=== PATIENT | male | born 1970 | race Caucasian/White ===

== ENCOUNTER 2019-03-02 04:50 | Inpatient (IN) ==
[2019-03-02] MEDS ORDERED: METOCLOPRAMIDE HCL INJ 5 MG/ML 2 ML VIAL IV STA (04:56)
[2019-03-02] MEDS ORDERED: KETOROLAC TROMETHAMINE 15 MG/ML VIAL IV STA (04:56)
[2019-03-02] MEDS ORDERED: SODIUM CHLORIDE 0.9% 500 ML IV STA (04:56)
[2019-03-02] MEDS ORDERED: DiphenhydrAMINE HCL 50 MG/ML VIAL IV STA (04:56)
[2019-03-02] MEDS ORDERED: SODIUM CHLORIDE 0.9% 1000ML 1,000 ML IV ONE (04:56)
[2019-03-02] MEDS ORDERED: ONDANSETRON INJ 2 MG/ML 2 ML VIAL IV STA (04:56)
--- NOTE | 2019-03-02 05:04 | Emergency Department Note ---
History of Present Illness General Chief complaint: Kidney Stone Stated complaint: KIDNEY STONE History of Present Illness Maximum Pain Intensity: 10 This 49-year-old presents to the ER complaining of sudden onset of left flank pain Location: Left flank Quality: Aching Severity: Moderate Duration: Started 1 hour ago Timing: Woke him from sleep Context: Pain persisted and patient came in Modifying factors: better with nothing; worse with nothing He is had a kidney stone before. Symptoms were similar. He states he does not have a kidney stone doctor. Patient denies chest pain, dyspnea, fevers, testicular pain, penile pain or any other medical complaints. No injury to the area. Home Medications Home Medications Medication Instructions Recorded Confirmed Type aspirin 81 mg PO DAILY 03/02/19 03/02/19 History ciclopirox 1 applic TOPICAL HS 03/02/19 03/02/19 History gemfibrozil 600 mg PO BID 03/02/19 03/02/19 History hydrocodone-acetaminophen 1 tab PO BID PRN 03/02/19 03/02/19 History lorazepam [Ativan] 1 mg PO DIRECTED PRN 03/02/19 03/02/19 History niacin 100 mg PO DAILY 03/02/19 03/02/19 History gcfeq-0d-zkw-epa-fish oil [[place]-3 1,000 mg PO BID 03/02/19 03/02/19 History Fish Oil] pantoprazole 40 mg PO DAILY 03/02/19 03/02/19 History sulindac 150 mg PO BID 03/02/19 03/02/19 History terbinafine HCl 1 spray TOPICAL DAILY 03/02/19 03/02/19 History Allergies Allergy/AdvReac Type Severity Reaction Status Date / Time No Known Allergies Allergy Mild NONE Unverified 03/02/19 05:20 Past Med/Surg History Medical History High cholesterol (Chronic) Surgical History Hx of cholecystectomy (Resolved) Social History Feels Safe at Home: Yes Smoking Status: Never smoker Review of Systems All systems reviewed & are unremarkable except as noted in HPI & below Physical Exam Vital Signs Vital Signs - 24 hr 03/02/19 04:52 Temperature 36.4 C L Temperature Source Oral Sepsis Recent Fever Within 48 Hours No Sepsis Action Taken by Nursing No Action Required Pulse Rate 57 L Respiratory Rate 18 Respiratory Effort / Characteristics Non-Labored Respiratory Depth Normal Respiratory Pattern Regular Blood Pressure 180/105 H Blood Pressure Mean 130 Pulse Oximetry 95 Oxygen Delivery Method Room Air VITALS: Vitals are noted on the nurse's note and reviewed by myself. Vital signs stable. GENERAL: White male who appears in pain, in no acute distress, nondiaphoretic, well-developed well-nourished. SKIN: Capillary reflex less than 2 seconds. HEENT: Normocephalic. PERRLA. EOMI. Nares patent. Mucous membranes moist. Neck is supple without nuchal rigidity. HEART: Regular rate and rhythm without murmurs gallops or rubs. LUNGS: Clear to auscultation bilaterally without wheezes, rales or rhonchi. No retractions or accessory muscle use. ABDOMEN: Positive bowel sounds x 4. Normal tympanic percussion. Soft, nontender, without masses or organomegaly. Mccall sign negative. No guarding or rebound tenderness. No CVA tenderness MUSCULOSKELETAL: No gross musculoskeletal defects. NEURO: Patient was alert and oriented to person place and time. Normal sensation to light and sharp touch. No focal neurological deficits. Course Administered Medications Discontinued Medications Diphenhydramine HCl (Benadryl) 25 mg IV NOW STA Stop: 03/02/19 04:57 Last Admin: 03/02/19 05:05 Dose: 25 mg Documented by: [id number] Sodium Chloride (Nss 1000ml) 1,000 mls @ 999 mls/hr IV .Q1H1M ONE Stop: 03/02/19 05:56 Last Admin: 03/02/19 05:08 Dose: 999 mls/hr Documented by: [id number] Sodium Chloride (Nss) 500 mls @ 999 mls/hr IV .Q31M STA Stop: 03/02/19 05:26 Last Admin: 03/02/19 05:12 Dose: Not Given Documented by: [id number] Ketorolac Tromethamine (Toradol) 10 mg IV NOW STA Stop: 03/02/19 04:57 Last Admin: 03/02/19 05:05 Dose: 10 mg Documented by: [id number] Metoclopramide HCl (Reglan) 10 mg IV NOW STA Stop: 03/02/19 04:57 Last Admin: 03/02/19 05:07 Dose: 10 mg Documented by: [id number] Morphine Sulfate (Morphine Sulfate) 8 mg IV NOW STA Stop: 03/02/19 05:13 Last Admin: 03/02/19 05:17 Dose: Not Given Documented by: [id number] Morphine Sulfate (Morphine Sulfate) Confirm Administered Dose 8 mg .ROUTE .STK- MED ONE Stop: 03/02/19 05:15 Last Admin: 03/02/19 05:16 Dose: 8 mg Documented by: [id number] Ondansetron HCl (Zofran) 4 mg IV NOW STA Stop: 03/02/19 04:57 Last Admin: 03/02/19 05:10 Dose: Not Given Documented by: [id number] Medical Decision Making Medical Records Attestation: I reviewed the patient's medical records. Home Medications Current Medication List: was personally reviewed by me Laboratory Data Attestation: I reviewed the patient's lab results. Result diagrams: 03/02/19 05:02 03/02/19 05:02 Lab Results 03/02/19 03/02/19 03/02/19 Range/Units 05:02 05:02 05:40 WBC 5.25 (4.8-10.8) K/uL RBC 4.63 L (4.7-6.1) M/uL Hgb 14.1 (14.0-18.0) g/dL Hct 39.0 L (42-52) % MCV 84.2 (80-100) fL MCH 30.5 (25-34) pg MCHC 36.2 H (32-36) g/dL RDW Std Deviation 37.6 (36.4-46.3) fL RDW Coeff of Osmin 12.3 (11.5-14.5) % Plt Count 217 (130-400) K/uL MPV 9.2 (7.4-10.4) fL Sodium 137 (136-145) mmol/L Potassium 3.8 (3.5-5.1) mmol/L Chloride 107 (98-107) mmol/L Carbon Dioxide 23 (21-32) mmol/L Anion Gap 7.0 (3-11) BUN 20 H (7-18) mg/dl Creatinine 0.99 (0.6-1.4) mg/dl Est Cr Clr Drug Dosing 129.7 ml/min Est GFR ( Amer) 104.7 Est GFR (Non-Af Amer) 90.3 BUN/Creatinine Ratio 20.2 H (10-20) Glucose 163 H (70-99) mg/dl Calcium 8.7 (8.5-10.1) mg/dl Total Bilirubin 0.4 (0.2-1) mg/dl AST 54 H (15-37) U/L ALT 98 H (12-78) U/L Alkaline Phosphatase 58 (45-117) U/L Total Protein 7.1 (6.4-8.2) gm/dl Albumin 3.6 (3.4-5.0) gm/dl Globulin 3.5 (2.5-4.0) gm/dl Albumin/Globulin Ratio 1.0 (0.9-2) Urine Color Urine Appearance (Clear) Urine pH (4.5-7.5) POC Urine pH 7 (4.5-7.5) Ur Specific [place] (1.000-1.030) Urine Protein (Negative) POC Urine Protein Trace H (Negative) Urine Glucose (UA) (Negative) POC Ur Glucose (UA) 250 H (Normal) Urine Ketones (Negative) POC Urine Ketones Negative (Negative) Urine Blood (Negative) POC Urine Blood 50 H (Negative) Urine Nitrite (Negative) POC Urine Nitrite Negative (Negative) Urine Bilirubin (Negative) Urine Urobilinogen (Negative) Ur Leukocyte Esterase (Negative) POC U Leukocyte Esteras Negative (Negative) Urine WBC (Auto) (0-5) /hpf Urine RBC (Auto) (0-4) /hpf U Hyaline Cast (Auto) (0-5) /lpf U Epithel Cells (Auto) (0-5) /lpf Urine Bacteria (Auto) (Negative) 03/02/19 Range/Units 05:40 WBC (4.8-10.8) K/uL RBC (4.7-6.1) M/uL Hgb (14.0-18.0) g/dL Hct (42-52) % MCV (80-100) fL MCH (25-34) pg MCHC (32-36) g/dL RDW Std Deviation (36.4-46.3) fL RDW Coeff of Osmin (11.5-14.5) % Plt Count (130-400) K/uL MPV (7.4-10.4) fL Sodium (136-145) mmol/L Potassium (3.5-5.1) mmol/L Chloride (98-107) mmol/L Carbon Dioxide (21-32) mmol/L Anion Gap (3-11) BUN (7-18) mg/dl Creatinine (0.6-1.4) mg/dl Est Cr Clr Drug Dosing ml/min Est GFR ( Amer) Est GFR (Non-Af Amer) BUN/Creatinine Ratio (10-20) Glucose (70-99) mg/dl Calcium (8.5-10.1) mg/dl Total Bilirubin (0.2-1) mg/dl AST (15-37) U/L ALT (12-78) U/L Alkaline Phosphatase (45-117) U/L Total Protein (6.4-8.2) gm/dl Albumin (3.4-5.0) gm/dl Globulin (2.5-4.0) gm/dl Albumin/Globulin Ratio (0.9-2) Urine Color Yellow Urine Appearance Clear (Clear) Urine pH 6.5 (4.5-7.5) POC Urine pH (4.5-7.5) Ur Specific [place] 1.021 (1.000-1.030) Urine Protein Negative (Negative) POC Urine Protein (Negative) Urine Glucose (UA) 1+ H (Negative) POC Ur Glucose (UA) (Normal) Urine Ketones Negative (Negative) POC Urine Ketones (Negative) Urine Blood 3+ H (Negative) POC Urine Blood (Negative) Urine Nitrite Negative (Negative) POC Urine Nitrite (Negative) Urine Bilirubin Negative (Negative) Urine Urobilinogen Negative (Negative) Ur Leukocyte Esterase Negative (Negative) POC U Leukocyte Esteras (Negative) Urine WBC (Auto) 1-5 (0-5) /hpf Urine RBC (Auto) 10-30 H (0-4) /hpf U Hyaline Cast (Auto) 1-5 (0-5) /lpf U Epithel Cells (Auto) 10-20 H (0-5) /lpf Urine Bacteria (Auto) Negative (Negative) Imaging Data Attestation: I personally reviewed and interpreted this imaging study as follows: MDM Narrative Prior records/ancillary studies reviewed. Triage Nursing notes reviewed. Additional history obtained from the family. The patient's history was concerning for left flank pain. Differential diagnosis: Etiologies such as renal colic, appendicitis, diverticulitis, mesenteric ischemia, aortic pathology, infections, inflammatory bowel disease, PUD, biliary pathology, UTI, as well as others were entertained. Physical examination findings: As above. ER treatment provided: Toradol, Reglan, Benadryl, IV fluids On reassessment the patient felt better. Diagnostic interpretation by me: The labs revealed hyperglycemia without DKA. Mild LFT elevation. Patient has known high cholesterol. Urinalysis revealed hematuria, there was no sign of UTI. Imaging studies: CT ABDOMEN & PELVIS Without Contrast: Comparison: CT dated 12/30/2009. Left proximal ureteral 3 x 3 x 4 mm calculus with mild left hydronephrosis and small periureteral/perinephric fluid. Periureteral/perinephric fluid is probably related to calculus although recommend clinical correlation and correlation with urinalysis to exclude superimposed infection. Additional punctate nonobstructive left renal calculus. Status post cholecystectomy. Incidental findings: Fatty infiltration of the liver. Normal appendix. Small fat-containing left inguinal hernia. Radiologist: Pat Keys MD Consultation: A consultation was placed with Dr. Harris, hospitalist. The case was discussed and diagnostics were reviewed. The patient was evaluated in the ER for further treatment. It appears that the patient has isolated renal colic from a left sided stone. Patient was still in moderate amount of pain. Medicine was consulted. Patient is agreeable to treatment plan. By the evaluation outlined above emergent etiologies such as appendicitis, diverticulitis, mesenteric ischemia, aortic pathology, infections, inflammatory bowel disease, PUD, biliary pathology, UTI, as well as others were deemed relatively unlikely. The pt informed about the findings as listed above. All questions were answered and pleased with the treatment. The chart was completed utilizing [employer] Speech voice recognition software. Grammatical errors, random word insertions, pronoun errors, and incomplete sentences are an occassional consequence of this system due to software limitations, ambient noise, and hardware issues. Any formal questions or concerns about the content, text, or information contained within the body of this dictation should be directly addressed to the physician public health assistant for clarification. Impression & Plan Renal colic on left side, Ureterolithiasis, Intractable back pain Discharge Plan Visit Data Chief Complaint: Kidney Stone Stated Complaint: KIDNEY STONE ED Provider: Agatha Tracy ED Midlevel Provider: Luz Maria Caceres Discharge Problem: Renal colic on left side, Ureterolithiasis, Intractable back pain Patient Disposition: Being Evaluated by Hospitalist Condition: Good Forms Stand Alone Forms: My [facility] Prescriptions Prescriptions: No Action hydrocodone-acetaminophen 5-325 mg Tablet 1 tab PO BID PRN (Reason: mild pain) RF: 0 sulindac 150 mg Tablet 150 mg PO BID RF: 0 lorazepam [Ativan] 1 mg Tablet 1 mg PO DIRECTED PRN (Reason: Anxiety) RF: 0 gemfibrozil 600 mg Tablet 600 mg PO BID RF: 0 pantoprazole 40 mg Tablet,Delayed Release (Dr/Ec) 40 mg PO DAILY RF: 0 ciclopirox 8 % Solution 1 applic TOPICAL HS RF: 0 terbinafine HCl 1 % Aerosol,[place] 1 spray TOPICAL DAILY RF: 0 [place]-3 Fish Oil 300-1,000 mg Capsule 1,000 mg PO BID RF: 0 niacin 100 mg Tablet 100 mg PO DAILY RF: 0 aspirin 81 mg Tablet,Delayed Release (Dr/Ec) 81 mg PO DAILY RF: 0 Referrals Referrals: Debbie Perez DO [Primary Care Provider] -
[2019-03-02] MEDS ORDERED: MoRPHine SULFATE 10 MG/ML CARP/VIAL IV STA (05:12)
[2019-03-02] MEDS ORDERED: MoRPHine SULFATE 4 MG/ML 1 ML CARP\\VIAL ONE (05:14)
[2019-03-02 05:16] LABS: Hemoglobin 14.1 g/dL (14.0-18.0); Mean Corpuscular Hgb Conc 36.2 g/dL (32-36); Mean Corpuscular Volume 84.2 fL (80-100); Mean Platelet Volume 9.2 fL (7.4-10.4); Platelet Count 217 K/uL (130-400); RDW Coefficient of Variation 12.3 % (11.5-14.5); RDW Standard Deviation 37.6 fL (36.4-46.3); Red Blood Count 4.63 M/uL (4.7-6.1); White Blood Count 5.25 K/uL (4.8-10.8)
[2019-03-02 05:35] LABS: Albumin Level 3.6 gm/dl (3.4-5.0); BUN Creatinine Ratio 20.2 (10-20); Calcium 8.7 mg/dl (8.5-10.1); Creatinine Clr Calc Pharmacy 129.7 ml/min; Est GFR (African American) 104.7; Est GFR (Non-African American) 90.3; Potassium 3.8 mmol/L (3.5-5.1)
[2019-03-02 05:37] LABS: Bilirubin,Total 0.4 mg/dl (0.2-1); Globulin 3.5 gm/dl (2.5-4.0); Total Protein 7.1 gm/dl (6.4-8.2)
[2019-03-02 06:08] LABS: Appearance Urine Clear (Clear); Bacteria Urine Automated Negative (Negative); Bilirubin Urine Negative (Negative); Blood Urine 3+ (Negative); Color Urine Yellow; Glucose Urine UA 1+ (Negative); Ketones Urine Negative (Negative); Leukocyte Esterase Urine Negative (Negative); Nitrite Urine Negative (Negative); Protein Urine Negative (Negative); Specific Gravity Urine 1.021 (1.000-1.030); Urobilinogen Urine Negative (Negative); pH Urine 6.5 (4.5-7.5)
[2019-03-02] MEDS ORDERED: TAMSULOSIN HCL 0.4 MG CAP PO ONE (06:08)
[2019-03-02 06:40] LABS: Magnesium 1.9 mg/dl (1.8-2.4)
--- NOTE | 2019-03-02 06:40 | History & Physical Report ---
Date of Service March 02, 2019 Assessment & Plan (1) Renal colic on left side: Obstructive uropathy No sepsis for now situational hypertension hyperlipidemia on statin Rx history of posttraumatic seizures, stable, last seizure was from childhood JOHNNIE on CPAP Abnormal LFTs likely from fatty liver disease prediabetes past tobacco abuse GMF Analgesia Flomax trial Strain urine Urology consult RE obstructive uropathy, left DVT prophylaxis. Lovenox subcu Full code Patient's requesting updates from providers. Mrs. Anni Vaughn, contact #[phone]. History of Present Illness Chief Complaint: Left flank pain Primary Care Provider: Heather Calvillo DO History obtained from patient, family, and records. Medical history significant for situational hypertension as per records, hyperlipidemia, urolithiasis, GERD, history of posttraumatic seizures, JOHNNIE on CPAP, prediabetes, past tobacco abuse. Recent confinement September 2013 for chest pain. Patient woke up this morning with achy left flank pain reminiscent of kidney stone pain. Patient had nausea, emesis. No hematuria, no fever, no chills. Intractable symptoms at the ER. Medical History as above Surgical History : Cholecystectomy, knee surgery Family History : Heart disease Personal/Social history : Past tobacco abuse, occasional EtOH intake, [employer] employee Allergies Allergy/AdvReac Type Severity Reaction Status Date / Time No Known Allergies Allergy Mild NONE Unverified 03/02/19 05:20 Home Medications Home Medications Medication Instructions Recorded Confirmed Type aspirin 81 mg PO DAILY 03/02/19 03/02/19 History ciclopirox 1 applic TOPICAL HS 03/02/19 03/02/19 History gemfibrozil 600 mg PO BID 03/02/19 03/02/19 History hydrocodone-acetaminophen 1 tab PO BID PRN 03/02/19 03/02/19 History lorazepam [Ativan] 1 mg PO DIRECTED PRN 03/02/19 03/02/19 History niacin 100 mg PO DAILY 03/02/19 03/02/19 History ctimm-1i-nrp-epa-fish oil [[place]-3 1,000 mg PO BID 03/02/19 03/02/19 History Fish Oil] pantoprazole 40 mg PO DAILY 03/02/19 03/02/19 History sulindac 150 mg PO BID 03/02/19 03/02/19 History terbinafine HCl 1 spray TOPICAL DAILY 03/02/19 03/02/19 History Past Med/Surg History Medical History High cholesterol (Chronic) Surgical History Hx of cholecystectomy (Resolved) Social History Feels Safe at Home: Yes Smoking Status: Never smoker Review of Systems Review of Systems: As per HPI, all 10 systems reviewed, all other ROS negative Physical Exam Physical Exam: GENERAL: uncomfortable, obese, no respiratory distress SKIN: Normal color, warm HEENT: [place] palpebral conjunctivae, no ptosis, dry buccal mucosa NECK : Supple, short neck, no tenderness CHEST : CTA, no tenderness HEART : Bradycardic , no obvious murmurs ABDOMEN: Some distention, left flank tenderness EXTREMITIES : minimal LE swelling, no LE tenderness, no other conspicuous deformities noted NEUROLOGIC : Coherent, no facial asymmetry, no other gross focality Results & Data Vital Signs (Past 12 Hours) Vital Signs Temp Pulse Pulse Resp BP BP Pulse Ox 03/02/19 06:36 56 L 17 148/89 H 97 03/02/19 04:52 36.4 C L 57 L 18 180/105 H 95 Laboratory Results Laboratory Results WBC 5.25 K/uL (4.8-10.8) 03/02/19 05:02 RBC 4.63 M/uL (4.7-6.1) L 03/02/19 05:02 Hgb 14.1 g/dL (14.0-18.0) 03/02/19 05:02 Hct 39.0 % (42-52) L 03/02/19 05:02 MCV 84.2 fL (80-100) 03/02/19 05:02 MCH 30.5 pg (25-34) 03/02/19 05:02 MCHC 36.2 g/dL (32-36) H 03/02/19 05:02 RDW Std Deviation 37.6 fL (36.4-46.3) 03/02/19 05:02 RDW Coeff of Osmin 12.3 % (11.5-14.5) 03/02/19 05:02 Plt Count 217 K/uL (130-400) 03/02/19 05:02 MPV 9.2 fL (7.4-10.4) 03/02/19 05:02 Sodium 137 mmol/L (136-145) 03/02/19 05:02 Potassium 3.8 mmol/L (3.5-5.1) 03/02/19 05:02 Chloride 107 mmol/L (98-107) 03/02/19 05:02 Carbon Dioxide 23 mmol/L (21-32) 03/02/19 05:02 Anion Gap 7.0 (3-11) 03/02/19 05:02 BUN 20 mg/dl (7-18) H 03/02/19 05:02 Creatinine 0.99 mg/dl (0.6-1.4) 03/02/19 05:02 Est Cr Clr Drug Dosing 129.7 ml/min 03/02/19 05:02 Est GFR ( Amer) 104.7 03/02/19 05:02 Est GFR (Non-Af Amer) 90.3 03/02/19 05:02 BUN/Creatinine Ratio 20.2 (10-20) H 03/02/19 05:02 Glucose 163 mg/dl (70-99) H 03/02/19 05:02 Calcium 8.7 mg/dl (8.5-10.1) 03/02/19 05:02 Magnesium 1.9 mg/dl (1.8-2.4) 03/02/19 05:02 Total Bilirubin 0.4 mg/dl (0.2-1) 03/02/19 05:02 AST 54 U/L (15-37) H 03/02/19 05:02 ALT 98 U/L (12-78) H 03/02/19 05:02 Alkaline Phosphatase 58 U/L (45-117) 03/02/19 05:02 Total Protein 7.1 gm/dl (6.4-8.2) 03/02/19 05:02 Albumin 3.6 gm/dl (3.4-5.0) 03/02/19 05:02 Globulin 3.5 gm/dl (2.5-4.0) 03/02/19 05:02 Albumin/Globulin Ratio 1.0 (0.9-2) 03/02/19 05:02 TSH 1.410 uIu/ml (0.300-4.500) 03/02/19 05:02 Urine Color Yellow 03/02/19 05:40 Urine Appearance Clear (Clear) 03/02/19 05:40 Urine pH 6.5 (4.5-7.5) 03/02/19 05:40 POC Urine pH 7 (4.5-7.5) 03/02/19 05:40 Ur Specific [place] 1.021 (1.000-1.030) 03/02/19 05:40 Urine Protein Negative (Negative) 03/02/19 05:40 POC Urine Protein Trace (Negative) H 03/02/19 05:40 Urine Glucose (UA) 1+ (Negative) H 03/02/19 05:40 POC Ur Glucose (UA) 250 (Normal) H 03/02/19 05:40 Urine Ketones Negative (Negative) 03/02/19 05:40 POC Urine Ketones Negative (Negative) 03/02/19 05:40 Urine Blood 3+ (Negative) H 03/02/19 05:40 POC Urine Blood 50 (Negative) H 03/02/19 05:40 Urine Nitrite Negative (Negative) 03/02/19 05:40 POC Urine Nitrite Negative (Negative) 03/02/19 05:40 Urine Bilirubin Negative (Negative) 03/02/19 05:40 Urine Urobilinogen Negative (Negative) 03/02/19 05:40 Ur Leukocyte Esterase Negative (Negative) 03/02/19 05:40 POC U Leukocyte Esteras Negative (Negative) 03/02/19 05:40 Urine WBC (Auto) 1-5 /hpf (0-5) 03/02/19 05:40 Urine RBC (Auto) 10-30 /hpf (0-4) H 03/02/19 05:40 U Hyaline Cast (Auto) 1-5 /lpf (0-5) 03/02/19 05:40 U Epithel Cells (Auto) 10-20 /lpf (0-5) H 03/02/19 05:40 Urine Bacteria (Auto) Negative (Negative) 03/02/19 05:[address] abdomen pelvis initial read: Left proximal ureteral 3 x 4 mm calculus with mild left hydronephrosis and small periureteral, perinephric fluid. Additional punctate nonobstructive left renal calculus. Fatty infiltration of the liver. Left inguinal hernia. EKG as per my interpretation rate 55, sinus bradycardia, T wave flattening lateral leads
--- NOTE | 2019-03-02 06:42 | CT Scan Report ---
CT abd pelvis wo con CT DOSE: 1825.65 mGy.cm HISTORY: Flank pain left flank pain TECHNIQUE: Multiaxial CT images of the abdomen and pelvis were performed without contrast. A dose lo wering technique was utilized adhering to the principles of ALARA. COMPARISON STUDY: 03/01/2016 FINDINGS: Nonspecific interstitial change at both lung bases. Liver spleen and pancreas are unremarkable. Prior cholecystectomy. Mild left renal hydronephrosis with a trace amount of perinephric infiltrative change. Obstructing 3 mm proximal left ureteral calculus. Ureters are otherwise unremarkable throughout. Bladder is midline. The bowel pattern is nonobstructiv e. Several small reactive iliac nodes. IMPRESSION: 1. Obstructing 3 mm calculus proximal left ureter. 2. Mild left hydronephrosis. 3. Mild left perinephric infiltrative change. The above report was generated using voice recognition software. It may contain grammatical, syntax or spelling errors. Electronically signed by: Andrea Ulloa M.D. 03/02/2019 6:41 AM
[2019-03-02] MEDS ORDERED: PROMETHAZINE HCL 12.5 MG in SODIUM CHLORIDE 0.9% 50 ML IV PRN (06:45)
[2019-03-02] MEDS ORDERED: LORazepam 0.5 MG/1 ML VIAL IV PRN (06:45)
[2019-03-02] MEDS ORDERED: HYDROmorphone INJ 1 MG/ML SYRINGE IV PRN (06:45)
[2019-03-02] MEDS ORDERED: ACETAMINOPHEN 325 MG TAB PO PRN (06:45)
[2019-03-02 07:00] LABS: Estimated Average Glucose 117 mg/dl; Hemoglobin A1C 5.7 % (4.5-5.6)
[2019-03-02] MEDS ORDERED: TAMSULOSIN HCL 0.4 MG CAP ONE (07:02)
[2019-03-02] MEDS ORDERED: HYDROCODONE/ACETAMOPHEN 5/325MG TAB PO PRN (07:27)
[2019-03-02] MEDS ORDERED: NSS + 20MEQ KCL 20 MEQ/1,000 ML BAG IV ONE (08:00)
[2019-03-02 08:15] LABS: Prothrombin Time 10.6 Seconds (9.0-12.0)
[2019-03-02] MEDS: PANTOprazole 40 MG TAB PO SCH (08:38)
--- NOTE | 2019-03-02 09:56 | Urology Consultation ---
Date of Consultation March 02, 2019 Assessment & Plan (1) Renal colic on left side: patient has a skinny anterior posterior but long (9mm) stone in the upper ureter. his pain is much lower now so I suspect the stone has moved down to the mid ureter now. I offered him stone removal surgery today and he prefers to wait and try to pass stone he may eat a general diet today and make him NPO after midnight for possible procedure tomorrow. FLomax daily Present on Admission?: Yes History of Present Illness Reason for Consultation: left ureteral stone Requesting Physician: Dr Rosas Attending Physician: Stuart Morley MD History of Present Illness I am asked by Dr Rosas to evaluate and treat patient for left renla colic. He started with kidney pain at 3am. He has had progress of the stone to the left lower quadrant. he has had nausea and emesis from the pain. he feels fine now. He has passed other stones and has never needed surgery for stones. No fevers lately Allergies Allergy/AdvReac Type Severity Reaction Status Date / Time No Known Allergies Allergy Mild NONE Unverified 03/02/19 05:20 Home Medications Home Medications Medication Instructions Recorded Confirmed Type aspirin 81 mg PO DAILY 03/02/19 03/02/19 History ciclopirox 1 applic TOPICAL HS 03/02/19 03/02/19 History gemfibrozil 600 mg PO BID 03/02/19 03/02/19 History hydrocodone-acetaminophen 1 tab PO BID PRN 03/02/19 03/02/19 History lorazepam [Ativan] 1 mg PO DIRECTED PRN 03/02/19 03/02/19 History niacin 100 mg PO DAILY 03/02/19 03/02/19 History xziek-6g-yky-epa-fish oil [[place]-3 1,000 mg PO BID 03/02/19 03/02/19 History Fish Oil] pantoprazole 40 mg PO DAILY 03/02/19 03/02/19 History sulindac 150 mg PO BID 03/02/19 03/02/19 History terbinafine HCl 1 spray TOPICAL DAILY 03/02/19 03/02/19 History Patient History Medical History High cholesterol (Chronic) Surgical History Hx of cholecystectomy (Resolved) Social History Preferred Language: [place] Communication Ability: Effective Account Resolution Analyst Required: No Beliefs That Will Affect Care: None Current Living Situation: Spouse and Family Other Information That Helps Us Care for You: No Feels Safe at Home: Yes Safety Concerns: Feels Safe At This Time Smoking Status: Never smoker Do You Dip or Chew Tobacco: No Second Hand Exposure: No Tobacco Cessation Education Requested by Patient: No Hx Alcohol Use: Yes Alcohol type: other Hx Substance Use: No Review of Systems Review of Systems: PMH- HTN Seizures remotely, none for years, fatty liver PSH- gallbladder NKDA Soc- no tobacco no etoh, + children, employed Fam Hx- no cancer no mi no stones in first degreee relatives ROS- no fever no chills, + nause + emesis - constipation- seizures- rash- - weakness or numbness, no chest pain or breathing problems, Physical Exam Constitutional: well developed, + obese and + lethargic was sleeping when I arrived, fell asleep during the interview. Eyes: PERRL, conjunctivae normal, anicteric sclerae Respiratory: normal respiratory effort, lungs clear to auscultation Gastrointestinal (Abdomen): normal bowel sounds, soft, nontender, no hepatosplenomegaly Musculoskeletal: no cyanosis or clubbing, extremities motor strength 5/5 Skin: no rashes, warm and dry Psychiatric: Orientation: oriented to person, oriented to place and oriented to time Apperance: + disheveled and appeared stated age Eye Contact: + fair eye contact Speech: normal rate/rhythm/volume of speech Results & Data Vital Signs (Past 12 Hours) Vital Signs Temp Pulse Pulse Resp BP BP Pulse Ox 03/02/19 07:20 36.5 C 61 16 176/95 H 96 03/02/19 07:06 57 L 18 156/87 H 97 03/02/19 06:36 56 L 17 148/89 H 97 03/02/19 04:52 36.4 C L 57 L 18 180/105 H 95
[2019-03-02] MEDS: ENOXAPARIN INJ 40 MG/0.4 ML SYR SQ SCH (11:05)
--- NOTE | 2019-03-02 15:35 | Hospitalist Progress Note ---
Date of Service March 02, 2019 Assessment & Plan (1) Renal colic on left side: Left Renal Colic Obstructive uropathy No sepsis Continue IV fluids, Flomax Pain Control Strain Urine Appreciate Urology Input Plan for procedure in AM if unable to pass stone Elevated Blood Pressure Likely due to pain Monitor Hyperlipidemia Continue home meds H/O Posttraumatic seizures last seizure was from childhood Stable JOHNNIE on CPAP Mild Transaminitis Unremarkable liver on CT Prior Cholecystectomy Monitor Prediabetes past tobacco abuse DVT Px: Lovenox SQ Code Status Full code Disposition: Expect to discharge home when stable Subjective Patient is seen and examined at bedside Reports mild LLQ abd pain radiating to groin Denies hematuria, chest pain, SOB, dizziness Reports nausea but no vomiting No other complaints Review of Systems Review of Systems: All systems reviewed & are unremarkable except as noted in HPI & below Physical Exam Physical Exam: Physical Exam: Vitals signs as noted above General Appearance:Obese, no apparent distress Head: normocephalic, Atraumatic Eyes: normal inspection, EOMI Neck: supple, Trachea midline Respiratory/Chest: Normal breath sounds, CTA Cardiovascular: S1, S2, No murmur Abdomen/GI:Soft, Non tender, no flank tenderness, Bowel sounds present Extremities/Musculoskelatal:normal inspection, no edema Neurologic/Psych:AAOX3, grossly no focal neurological deficits Skin: normal color, warm Results & Data Vital Signs (Past 12 Hours) Vital Signs Temp Pulse Pulse Resp BP BP Pulse Ox 03/02/19 15:23 36.6 C 72 17 138/78 95 03/02/19 07:20 36.5 C 61 16 176/95 H 96 03/02/19 07:06 57 L 18 156/87 H 97 03/02/19 06:36 56 L 17 148/89 H 97 03/02/19 04:52 36.4 C L 57 L 18 180/105 H 95 Laboratory Results Short CBC 03/02/19 Range/Units 05:02 WBC 5.25 (4.8-10.8) K/uL Hgb 14.1 (14.0-18.0) g/dL Hct 39.0 L (42-52) % Plt Count 217 (130-400) K/uL BMP 03/02/19 05:02 Sodium 137 Potassium 3.8 Chloride 107 Carbon Dioxide 23 BUN 20 H Creatinine 0.99 Glucose 163 H Calcium 8.7 Liver Function 03/02/19 Range/Units 05:02 Total Bilirubin 0.4 (0.2-1) mg/dl AST 54 H (15-37) U/L ALT 98 H (12-78) U/L Alkaline Phosphatase 58 (45-117) U/L Albumin 3.6 (3.4-5.0) gm/dl Urine 03/02/19 Range/Units 05:40 Urine Color Yellow Urine Appearance Clear (Clear) Urine pH 6.5 (4.5-7.5) Ur Specific [place] 1.021 (1.000-1.030) Urine Protein Negative (Negative) Urine Glucose (UA) 1+ H (Negative) Diagnostic Findings CT ABD: 1. Obstructing 3 mm calculus proximal left ureter. 2. Mild left hydronephrosis. 3. Mild left perinephric infiltrative change.
[2019-03-02] MEDS: GEMFIBROZIL 600 MG TAB PO SCH (16:55)
[2019-03-03 06:26] LABS: Basophils # (auto) 0.05 K/uL (0-0.2); Basophils % (auto) 0.6 %; Eosinophils # (auto) 0.21 K/uL (0-0.5); Eosinophils % (auto) 2.7 %; Hematocrit (blood only) 38.4 % (42-52); Hemoglobin 13.6 g/dL (14.0-18.0); Immature Granulocytes # (auto) 0.02 K/uL (0.00-0.02); Immature Granulocytes % (auto) 0.3 %; Lymphocytes # (auto) 2.36 K/uL (1.2-3.4); Mean Corpuscular Hgb Conc 35.4 g/dL (32-36); Mean Corpuscular Volume 85.9 fL (80-100); Mean Platelet Volume 9.4 fL (7.4-10.4); Monocytes # (auto) 0.95 K/uL (0.11-0.59); Monocytes % (auto) 12.1 %; Neutrophils # (auto) 4.27 K/uL (1.4-6.5); Neutrophils % (auto) 54.3 %; Platelet Count 221 K/uL (130-400); RDW Coefficient of Variation 12.6 % (11.5-14.5); RDW Standard Deviation 39.3 fL (36.4-46.3); Red Blood Count 4.47 M/uL (4.7-6.1); White Blood Count 7.86 K/uL (4.8-10.8)
[2019-03-03 06:53] LABS: Albumin Level 3.3 gm/dl (3.4-5.0); BUN Creatinine Ratio 18.2 (10-20); Calcium 9.2 mg/dl (8.5-10.1); Creatinine Clr Calc Pharmacy 151.1 ml/min; Est GFR (African American) 120.3; Est GFR (Non-African American) 103.8; Potassium 3.9 mmol/L (3.5-5.1)
[2019-03-03 06:56] LABS: Bilirubin,Total 0.6 mg/dl (0.2-1); Globulin 3.3 gm/dl (2.5-4.0); Total Protein 6.6 gm/dl (6.4-8.2)
[2019-03-03] MEDS: PANTOprazole 40 MG TAB PO SCH (07:58)
[2019-03-03] MEDS: ENOXAPARIN INJ 40 MG/0.4 ML SYR SQ SCH (07:58)
[2019-03-03] MEDS: GEMFIBROZIL 600 MG TAB PO SCH (07:58)
[2019-03-03] MEDS ORDERED: TAMSULOSIN HCL 0.4 MG CAP PO SCH (09:00)
--- NOTE | 2019-03-03 10:33 | Hospitalist Progress Note ---
Date of Service March 03, 2019 Assessment & Plan (1) Renal colic on left side: Left Renal Colic Obstructive uropathy No sepsis Continue IV fluids, Flomax Pain Control Strain Urine Appreciate Urology Input Denies hematuria, dysuria Abdominal pain resolved Patient currently not interested in stent placement and prefers to be managed Conservatively Plans to Follow up with on Monday as outpatient Advised to seek immediate medical attention if symptoms reoccur--agrees with plan Elevated Blood Pressure Likely due to pain Monitor Hyperlipidemia Continue home meds H/O Posttraumatic seizures last seizure was from childhood Stable JOHNNIE on CPAP Mild Transaminitis Unremarkable liver on CT Prior Cholecystectomy Monitor Prediabetes past tobacco abuse DVT Px: Lovenox SQ Code Status Full code Disposition: Plan to discharge home today Subjective Patient is seen and examined at bedside States LLQ abd pain has resolved Patient prefers to be discharged and follow up as outpatient with Urology-- aware Tolerated diet Denies hematuria, dysuria, chest pain, SOB, dizziness No nausea or vomiting Review of Systems Review of Systems: All systems reviewed & are unremarkable except as noted in HPI & below Physical Exam Physical Exam: Physical Exam: Vitals signs as noted above General Appearance:Obese, no apparent distress Head: normocephalic, Atraumatic Eyes: normal inspection, EOMI Neck: supple, Trachea midline Respiratory/Chest: Normal breath sounds, CTA Cardiovascular: S1, S2, No murmur Abdomen/GI:Soft, Non tender, no flank tenderness, Bowel sounds present Extremities/Musculoskelatal:normal inspection, no edema Neurologic/Psych:AAOX3, grossly no focal neurological deficits Skin: normal color, warm Results & Data Vital Signs (Past 12 Hours) Vital Signs Temp Pulse Resp BP Pulse Ox 03/03/19 07:10 36.8 C 69 18 149/83 H 94 03/02/19 22:55 36.9 C 61 18 153/88 H 95 Laboratory Results Short CBC 03/03/19 Range/Units 05:44 WBC 7.86 (4.8-10.8) K/uL Hgb 13.6 L (14.0-18.0) g/dL Hct 38.4 L (42-52) % Plt Count 221 (130-400) K/uL BMP 03/03/19 05:44 Sodium 140 Potassium 3.9 Chloride 109 H Carbon Dioxide 24 BUN 16 Creatinine 0.85 Glucose 119 H Calcium 9.2 Liver Function 03/03/19 Range/Units 05:44 Total Bilirubin 0.6 (0.2-1) mg/dl AST 43 H (15-37) U/L ALT 115 H (12-78) U/L Alkaline Phosphatase 54 (45-117) U/L Albumin 3.3 L (3.4-5.0) gm/dl
--- NOTE | 2019-03-03 10:40 | Discharge Summary ---
Date of Service March 03, 2019 Admission HPI Per Admitting Provider History obtained from patient, family, and records. Medical history significant for situational hypertension as per records, hyperlipidemia, urolithiasis, GERD, history of posttraumatic seizures, JOHNNIE on CPAP, prediabetes, past tobacco abuse. Recent confinement September 2013 for chest pain. Patient woke up this morning with achy left flank pain reminiscent of kidney stone pain. Patient had nausea, emesis. No hematuria, no fever, no chills. Intractable symptoms at the ER. Medical History as above Surgical History : Cholecystectomy, knee surgery Family History : Heart disease Personal/Social history : Past tobacco abuse, occasional EtOH intake, [employer] employee Admission Exam Per Admitting Provider GENERAL: uncomfortable, obese, no respiratory distress SKIN: Normal color, warm HEENT: [place] palpebral conjunctivae, no ptosis, dry buccal mucosa NECK : Supple, short neck, no tenderness CHEST : CTA, no tenderness HEART : Bradycardic , no obvious murmurs ABDOMEN: Some distention, left flank tenderness EXTREMITIES : minimal LE swelling, no LE tenderness, no other conspicuous deformities noted NEUROLOGIC : Coherent, no facial asymmetry, no other gross focality Principal Diagnosis Discharge Information Discharge Diagnosis Left Renal Colic Obstructive Uropathy Discharge Goals Decrease discomfort,Improve disease control, Improve function Discharge Activity Limitations Resume your previous activity Discharge Data Allergies Allergy/AdvReac Type Severity Reaction Status Date / Time No Known Allergies Allergy Mild NONE Unverified 03/02/19 05:20 Consultations 03/02/19 05:58 ED Decision to Admit Stat 03/02/19 06:45 Consult Urology Routine Procedures Performed CT ABD: 1. Obstructing 3 mm calculus proximal left ureter. 2. Mild left hydronephrosis. 3. Mild left perinephric infiltrative change. Ordered Studies 03/02/19 04:56 CT abd pelvis wo con Stat Hospital Course (1) Renal colic on left side: Left Renal Colic Obstructive uropathy No sepsis Continue IV fluids, Flomax Pain Control Strain Urine Appreciate Urology Input Denies hematuria, dysuria Abdominal pain resolved Patient currently not interested in stent placement and prefers to be managed Conservatively Plans to Follow up with on Monday as outpatient Advised to seek immediate medical attention if symptoms reoccur--agrees with plan Elevated Blood Pressure Likely due to pain Monitor Hyperlipidemia Continue home meds H/O Posttraumatic seizures last seizure was from childhood Stable JOHNNIE on CPAP Mild Transaminitis Unremarkable liver on CT Prior Cholecystectomy DD:Could be from gemfibrozil use Monitor Prediabetes past tobacco abuse DVT Px: Lovenox SQ Code Status Full code Disposition: Plan to discharge home today Total Time Total Time Spent Total Time Spent (In Minutes): 35 minutes Total Time Includes: Examination of the Patient, Discharge Planning, Medication Reconciliation, Communication With Other Providers and Other Discharge Plan Discharge Items Patient Disposition: Home - Self-Care Reason For Visit: RENAL COLIC, OBSTRUCTIVE UROPATHY Discharge Diagnosis: Left Renal Colic Obstructive Uropathy Condition: Good Discharge Goals: Decrease discomfort, Improve disease control and Improve function Activity: Resume your previous activity Exercise/Sports: Gradually increase as tolerated Non-emergency contact: Primary Care Provider and Urologist Call non-emergency contact if: you have any medication questions, your symptoms worsen, your pain is not controlled, your pain is worsening, your pain is unusual for you, your pain is concerning for you and you have a fever Follow-up/Referrals: Debbie Perez DO [Primary Care Provider] - Diet: Heart Healthy Addtl Provider Instructions: Follow up with your PCP /Peggy in 1 week Follow up with your Urologist in 1 week Continue flomax as prescribed Drink more fluids as advised Seek immediate medical attention if your symptoms reoccur or worsen Prescriptions: New tamsulosin 0.4 mg Capsule 0.4 mg PO QAM 30 Days Qty: 30 RF: 0 Continued hydrocodone-acetaminophen 5-325 mg Tablet 1 tab PO BID PRN (Reason: mild pain) RF: 0 sulindac 150 mg Tablet 150 mg PO BID RF: 0 lorazepam [Ativan] 1 mg Tablet 1 mg PO DIRECTED PRN (Reason: Anxiety) RF: 0 gemfibrozil 600 mg Tablet 600 mg PO BID RF: 0 pantoprazole 40 mg Tablet,Delayed Release (Dr/Ec) 40 mg PO DAILY RF: 0 ciclopirox 8 % Solution 1 applic TOPICAL HS RF: 0 terbinafine HCl 1 % Aerosol,Bruin 1 spray TOPICAL DAILY RF: 0 [place]-3 Fish Oil 300-1,000 mg Capsule 1,000 mg PO BID RF: 0 niacin 100 mg Tablet 100 mg PO DAILY RF: 0 aspirin 81 mg Tablet,Delayed Release (Dr/Ec) 81 mg PO DAILY RF: 0 Stand-Alone Forms: [facility]/Other Patient Handouts: Kidney Stones Risk, Kidney Stones Prevent Discharge Orders: Discharge Order (Routine); Ordered 03/03/19 Ordered By: Stuart Morley Admission Data Admit Date/Time: 03/02/19 06:51 Attending Provider: Stuart Morley Admit Provider: Arturo Harris Primary Care Provider: Debbie Perez Other Providers: Arturo Harris ; Winifred Oswald Service: Medical Other Interventions: Discharge Summary Assessment (RN) Last Done: 03/03/19 11:14 Pending Studies at Discharge: No DC Date/Time DO NOT enter until pt leaves facility: 03/03/19 11:28
== END 2019-03-03 11:28 | disposition home or self-care (01) | DRG 694 ==
LOC: ED 04:50 → 3N 06:51

== ENCOUNTER 2021-03-04 05:46 | Inpatient (IN) ==
--- NOTE | 2021-03-03 15:00 | Anesthesiology Consultation ---
Date of Service March 03, 2021 Assessment & Plan (1) Encounter for pre-operative examination: - S/P Left Elbow Wound Incision and Drainage (02/12/21): LMA#5 at [facility] - COVID screening: Per assessment on 03/03: Travel screen negative, no known COVID-19 positive contacts or current COVID-19 related symptoms. Patient late add-on case. Will order cepheid for AM DOS. - Surgeon office visit (03/03/21): "The patient's surgery will be done with a rapid COVID test out of medical necessity due to his acute elbow infection. This case cannot wait for a prolonged period of time to wait for his [send-out] COVID results." Chart Review Chart Review: Acceptable Risk for Surgery and Patient NOT seen in Pre Admission Testing History Surgery Operation Date: 03/04/21 07:15 Proposed Procedures p Left Elbow Irrigation & Debridement, Possible Wound Vac Placement - Kyle Lara MD Height/Weight Height: 5 ft 11 in Weight: 127.9 kg Allergies Allergy/AdvReac Type Severity Reaction Status Date / Time No Known Allergies Allergy Mild NONE Verified 03/03/21 14:47 Medications Home Medications Medication Instructions Recorded Confirmed Last Taken [place]-3 Fish Oil 1,000 mg PO BID 03/02/19 03/03/21 02/12/21 07:30 gemfibrozil [Lopid] 600 mg PO BID 03/02/19 03/03/21 02/11/21 07:30 hydrocodone-acetaminophen 1 tab PO BID PRN 03/02/19 03/03/21 02/09/21 lorazepam [Ativan] 1 mg PO DIRECTED PRN 03/02/19 03/03/21 Unknown pantoprazole 40 mg PO QAM 03/02/19 03/03/21 02/12/21 07:30 sulindac 150 mg PO BID 03/02/19 03/03/21 02/12/21 07:30 oxycodone 5 mg PO Q4H PRN #15 tab 01/06/21 03/03/21 01/27/21 amiloride-hydrochlorothiazide 1 tab PO QAM 01/19/21 03/03/21 02/12/21 07:30 cyanocobalamin (vitamin B-12) 1,000 mcg PO QAM 01/19/21 03/03/2102/12/21 07:30 multivitamin 1 tab PO QAM 01/19/21 03/03/21 02/12/21 07:30 Past Medical History Medical History Anxiety Arthritis Elevated triglycerides with high cholesterol GERD (gastroesophageal reflux disease) controlled History of kidney stones History of seizure Seizure onset at age 11 (after tree falling on head) > most recent seizure 12+ years ago, controlled off anticonvulsants Hx of bladder cancer no chemo or xrt, under surveillance by urology (Dr. Beckett; [facility]) Obesity Sleep apnea CPAP Past Family History Family History Mother Family history of diabetes mellitus Other No family history of adverse response to anesthesia Past Surgical History Surgical History History of arthroscopic knee surgery Left History of cystoscopy History of esophagogastroduodenoscopy (EGD) History of incision and drainage Left Elbow Wound Incision and Drainage (02/12/21): LMA#5 at [facility] Hx of cholecystectomy Hx of LASIK Social History Smoking Status: Former smoker tobacco type: cigarettes Hx Alcohol Use: Yes Alcohol type: hard liquor alcohol intake frequency: holidays/special occasions only Hx Substance Use: No substance use type: does not use Lab Results Anesthesia Preop Results Results Anesthesia Widget: WBC 5.50 K/uL (4.8-10.8) 01/20/21 Hgb 14.7 g/dL (14.0-18.0) 01/20/21 Hct 41.1 % (42-52) L 01/20/21 Plt 247 K/uL (130-400) 01/20/21 Na 137 mmol/L (136-145) 01/20/21 K 3.8 mmol/L (3.5-5.1) 01/20/21 Cl 107 mmol/L (98-107) 01/20/21 CO2 25 mmol/L (21-32) 01/20/21 BUN 17 mg/dl (7-18) 01/20/21 Creat 0.87 mg/dl (0.6-1.4) 01/20/21 Glucose Level 96 mg/dl (70-99) 01/20/21 PT 10.1 Seconds (9.0-12.0) 01/20/21 PTT 22.8 Seconds (21.0-31.0) 01/20/21 INR 1.0 (0.9-1.1) 01/20/21 COVID-19 PCR NEGATIVE (Negative) 02/12/21 SARS-CoV-2 RNA (RT-PCR) Not Detected (Not Detected) 01/18/21 Testing Electrocardiogram Date: 01/20/21 Findings: + SB @ (53) Chest X-Ray Date: 01/20/21 Findings: + NAD
--- NOTE | 2021-03-03 15:51 | History & Physical Report ---
Date of Service March 03, 2021 Assessment & Plan (1) Postoperative wound infection: The patient was educated regarding today's findings. Conservative care measures were discussed. He will be admitted through same day surgery tomorrow for left elbow irrigation and debridement and possible wound VAC placement. He will obtain preoperative lab work today, including CBC and PRP. He will have a rapid COVID test done tomorrow morning. The patient is aware that he will be NPO after midnight. Informed written consent was obtained today by Dr. Lara. The patient's surgery will be done with a rapid COVID test out of medical necessity due to his acute elbow infection. This case cannot wait for a prolonged period of time to wait for his COVID results. He will self- quarantine. Call with any other concerns. History of Present Illness Chief Complaint: Left elbow infection Primary Care Provider: Heather Calvillo DO This 51-year-old male presents today with his for his preoperative history and physical. He is scheduled to undergo a left elbow irrigation and debridement with possible wound VAC placement on 03/04/2021. The patient initially injured his left elbow lifting a heavy object at work on January 06. He underwent a distal biceps tendon repair on 01/22/2021. Subsequently, his incisional wound became infected and he had irrigation and debridement performed 02/12/2021. Initially, he did well. Over the last several days, he has noticed increasing soreness, redness, and drainage. Right hand dominant. He denies any numbness or tingling. No fevers or chills. Given his recurrence, it was felt best to I&D the wound as an inpatient. No other complaints. Allergies Allergy/AdvReac Type Severity Reaction Status Date / Time No Known Allergies Allergy Mild NONE Verified 03/04/21 06:06 Home Medications Medication Instructions Recorded Confirmed Type [place]-3 Fish Oil 1,000 mg PO BID 03/02/19 03/04/21 History gemfibrozil [Lopid] 600 mg PO BID 03/02/19 03/04/21 History hydrocodone-acetaminophen 1 tab PO BID PRN 03/02/19 03/04/21 History lorazepam [Ativan] 1 mg PO DIRECTED PRN 03/02/19 03/04/21 History pantoprazole 40 mg PO QAM 03/02/19 03/04/21 History sulindac 150 mg PO BID 03/02/19 03/04/21 History oxycodone 5 mg PO Q4H PRN #15 tab 01/06/21 03/04/21 Rx amiloride-hydrochlorothiazide 1 tab PO QAM 01/19/21 03/04/21 History cyanocobalamin (vitamin B-12) 1,000 mcg PO QAM 01/19/21 03/04/21 History multivitamin 1 tab PO QAM 01/19/21 03/04/21 History Past Med/Surg History Medical History Anxiety Arthritis Elevated triglycerides with high cholesterol GERD (gastroesophageal reflux disease) controlled History of kidney stones History of seizure Seizure onset at age 11 (after tree falling on head) > most recent seizure 12+ years ago, controlled off anticonvulsants Hx of bladder cancer no chemo or xrt, under surveillance by urology (Dr. Beckett; [facility]) Obesity Sleep apnea CPAP Surgical History History of arthroscopic knee surgery Left History of cystoscopy History of esophagogastroduodenoscopy (EGD) History of incision and drainage Left Elbow Wound Incision and Drainage (02/12/21): LMA#5 at [facility] Hx of cholecystectomy Hx of LASIK Family History Mother Family history of diabetes mellitus Other No family history of adverse response to anesthesia Social History (Updated 03/03/21 @ 15:48 by Singh Echevarria PA-C) Smoking Status: Former smoker Smoking End Date: late ; Second Hand Exposure: No; Do You Dip or Chew Tobacco: No; Tobacco Cessation Education Requested by Patient: No Hx Alcohol Use: Yes Alcohol type: hard liquor Hx Substance Use: No Preferred Language: Mexican Communication Ability: Effective Hydroblaster Required: No Beliefs That Will Affect Care: None marital status: Current Living Situation: Spouse and Family current occupational status: employed Other Information That Helps Us Care for You: No Feels Safe at Home: Yes Safety Concerns: Feels Safe At This Time Assistive Devices: CPAP Review of Systems Review of Systems: All systems reviewed & are unremarkable except as noted in HPI & below A total of 10 systems were reviewed. Physical Exam Physical Exam: Vital signs: Temperature 36.5, BP 160/80, pulse 80, O2 sat 97% on room air. Previous weight in January was 129 kilograms with a BMI of 40.3. General: Well-developed, well-nourished middle-aged white male in no acute distress. Sitting in a chair. Alert and oriented. Skin: Warm and dry with good turgor. No rashes or lesions. He has a post- surgical scar present on the antecubital fossa of his left elbow. There is a small area that is nonhealing, oozing serous fluid, and is reddened and edematous. It is approximately 10-12 mm in diameter. Nothing is expressible. The area is quite tender to touch. It does appear to have some fairly angry tissue. HEENT: Normocephalic, atraumatic. Eyes: PERRLA, EOMI. Nares and oropharynx exams deferred due to COVID precautions. Heart: RRR, no MGR. Lungs: Clear to auscultation bilaterally; no crackles, rhonchi or wheezing; good air movement. Abdomen: Obese; bowel sounds present x4; soft, nontender. No organomegaly. No masses. Musculoskeletal: Left elbow evaluation reveals full terminal extension. Full flexion. Full supination and pronation. Excellent range of motion of the wrist and digits. He is able to make a full fist. Strength is 5/5 for resisted th umb extension, thumb abduction, finger abduction, as well as finger flexion and extension. He lacks just a few degrees of ulnar deviation. No intra-articular effusion in the elbow itself. Neurologic: Gross sensation is intact across all aspects of the left arm and hand by soft touch. Radial, median, and ulnar nerve functions are intact for sensory and motor.
[2021-03-04] MEDS ORDERED: VANCOMYCIN HCL 1,500 MG in SODIUM CHLORIDE 0.9% 500 ML IV SCH (06:00)
[2021-03-04] MEDS ORDERED: LR 15ML/HR IV SCH ×2 (06:00)
[2021-03-04] MEDS ORDERED: LIDOCAINE HCL 2% 2 ML VIAL/AMP(20MG/ML) INFIL ONE (06:56)
[2021-03-04] MEDS ORDERED: fentaNYL citrate 100 MCG/2 ML VIAL ONE (06:56)
[2021-03-04] MEDS ORDERED: DEXAMETHASONE SOD INJ 4 MG/ML VIAL ONE (06:56)
[2021-03-04] MEDS ORDERED: ONDANSETRON INJ 2 MG/ML 2 ML VIAL ONE (06:56)
[2021-03-04] MEDS ORDERED: PROPOFOL IV EMULSION 10 MG/ML 20 ML VIAL IV ONE (06:56)
--- NOTE | 2021-03-04 06:56 | History & Physical Bridge Note ---
Date of Service March 04, 2021 History & Physical Bridge Note I have examined the patient, reviewed the History & Physical and in the interval since the performance of the History & Physical I have noted the following changes of clinical significance: no changes noted Patient is aware of the risks, is asymptomatic, and awaiting COVID-19 results.
[2021-03-04] MEDS ORDERED: MIDAZOLAM HCL 1 MG/ML 2ML VIAL ONE (06:57)
[2021-03-04] MEDS ORDERED: ePHEDrine sulfate 50 MG/ML AMP IV PRN (07:12)
[2021-03-04] MEDS ORDERED: PROMETHAZINE HCL 12.5 MG in SODIUM CHLORIDE 0.9% 50 ML IV PRN (07:12)
[2021-03-04] MEDS ORDERED: NALOXONE HCL 0.4 MG/1 ML VIAL/CARP IV PRN (07:12)
[2021-03-04] MEDS ORDERED: ONDANSETRON INJ 2 MG/ML 2 ML VIAL IV PRN ×2 (07:12→10:45)
[2021-03-04] MEDS ORDERED: LABETALOL HCL IV 5 MG/ML 20ML IV PRN (07:12)
[2021-03-04] MEDS ORDERED: ATROPINE SULFATE 0.1 MG/ML 10ML SYR IV PRN (07:12)
[2021-03-04] MEDS ORDERED: FLUMAZENIL 0.1 MG/1 ML 10 ML VIAL IV PRN (07:12)
[2021-03-04 07:20] LABS: Influenza A virus by PCR Negative (Neg); Influenza B virus by PCR Negative (Neg); RSV by PCR Negative (Neg); SARS CoV2 RNA(COVID-19) InHosp NEGATIVE (Negative)
[2021-03-04] MEDS ORDERED: LIDOCAINE/EPINEPHRINE 1% 20 ML VIAL ONE (07:39)
[2021-03-04] MEDS ORDERED: BUPIVACAINE 0.5 % 5 MG/1 ML MPF 30ML VIAL ONE (07:39)
--- NOTE | 2021-03-04 09:24 | Post Operative Brief Note ---
Immediate Post Op Note v1 Date of Surgery March 04, 2021 Pre & Post Diagnosis Operation Date: 03/04/21 07:15 Pre-Op Diagnosis: Left Elbow Infection Post-Op Diagnosis: Left Elbow Infection, Ruptured Distal Biceps Tendon, Failure of Previous Repair I identified the patient and participated in the time-out.: Yes Procedure Operation Date: 03/04/21 07:15 Actual Procedures p Left Elbow Irrigation & Debridement, Removal orthopedic harware, deep, Incisional wound vac placement(Left) - Kyle Lara MD Surgeon Kyle Lara MD User Experience Researcher Kirsten Echevarria PA-C (No fellow avail) Estimated Blood Loss 20 Findings Consistent with Post-Op Diagnosis Fluids 1000 cc Specimens Left elbow Cx x 2 Left distal biceps Left elbow sinus tract Drains Other (Incisional wound vac) Anesthesia Type General Complications none
--- NOTE | 2021-03-04 09:27 | Operative Report ---
Post Operative Report Pre & Post Diagnosis Operation Date: 03/04/21 07:15 Pre-Op Diagnosis: Left Elbow Infection Post-Op Diagnosis: Left Elbow Infection, Ruptured Distal Biceps Tendon, Failure of Previous Repair I identified the patient and participated in the time-out.: Yes Procedure Operation Date: 03/04/21 07:15 Actual Procedures p Left Elbow Irrigation & Debridement, Removal orthopedic harware, deep, Incisional wound vac placement (Left) - Kyle Lara MD Surgeon Kyle Lara MD Deburrer Kirsten Echevarria PA-C (No fellow avail) Estimated Blood Loss 20 Findings See Below No sheryl purulence. Sinus tract with surrounding fibrinous tissue. Anchors had pulled out resulting in failure of previous repair. Fluids 1000 cc Specimens Left elbow Cx x 2, Sinus tract, distal biceps, Orthopedic hardware (suture and anchors) Drains Incisional wound vac Anesthesia Type General Complications none Indications The patient is 51 year old male history of recurrent draining left elbow wound following I&D 3 weeks ago, after recent left distal biceps tendon repair, again appears to have a superficial infection. The patient understands the risks of surgery, which include but are not limited to: bleeding, infection, re- operation, damage to nerves and arteries, continued pain and DVT. The patient understands all of these instructions and explanations, all of their questions have been satisfactorily addressed. The patient has elected to proceed with surgery and the informed consent was signed. Description of Procedure Kirsten Echevarria PA-C was present from positioning, aided with retaction, placement of incisional wound vac, placement of dressing, and transferring the patient as the fellow was unavailable. PROCEDURE: The patient was taken to the Operating Room and placed in the supine position on the operating table. After appropriate anesthesia was administered, a multidisciplinary time-out was performed identifying my initials on the left upper extremity as the correct and operative limb. Antibiotics were held until after cultures were obtained, Vancomycin was given. The left upper extremity was prepped and draped in the usual Orthopaedic sterile fashion. The previous incision was incised and the sinus tract was excised via ellipse and sent for pathology. Superficial and deep Cultures were obtained. The wound was milked and no obvious purulence was noted. Any fibrinous material, necrotic fat near skin edge and previous sinus tract were removed with rongeur and curet. The sutures for the distal biceps repair seemed more prominent and superficial and with further investigation the two anchors still attached to the tendon but had pulled out of the radial tuberosity. All sutures and associated anchors were removed from the distal biceps. The end of the tendon was frayed and a small portion removed and also sent for pathology. The end of the distal biceps 2.5- 3 cm long was tagged with antibiotic impregnated PDS suture. The radial tuberosity was palpated and felt solid. I was unable to visualize the anchor holes. The radial tuberosity was debrided with curet. Due to the history of recent infection it was not advisable to revise the distal biceps repair in this setting, and would wait until the infection is cleared. The remaining surfaces where healthy looking and were bleeding. Hemostasis was maintained. The wound was copiously irrigated with over 2 L of normal saline. The incision was closed with 3-0 Prolene using vertical and horizontal mattress sutures. The incision was covered with Acticoat and incisional wound vac in the standard fashion. The left upper extremity was covered with sterile cast padding and COURTNEY. The sponge and needle counts were correct. Post-op Instructions: The patient was admitted to the Med/Surg floor with continued IV Vanco. Pharmacy consult to monitor Vanco. ID consult to ensure appropriate Antibiotics course. Will removed Incisional wound vac POD # 2 will consider replacing. Discussed with the patient and findings from surgery. I attest to the content of the Intraoperative Record and any orders documented therein. Any exceptions are noted below.
--- NOTE | 2021-03-04 09:37 | Operative Report ---
Post Operative Report Pre & Post Diagnosis Operation Date: 03/04/21 07:15 Pre-Op Diagnosis: Left Elbow Infection Post-Op Diagnosis: Left Elbow Infection, Ruptured Distal Biceps Tendon, Failure of Previous Repair I identified the patient and participated in the time-out.: Yes Procedure Operation Date: 03/04/21 07:15 Actual Procedures p Left Elbow Irrigation & Debridement,Removal of Orthopedic Hardware deep, Incisional Wound Vac Placement (Left) - Kyle Fransisca Lara MD Surgeon D Marco SHETH Sterilization Specialist C ARVIND Echevarria (No fellow avail) Estimated Blood Loss 20 Findings Consistent with Post-Op Diagnosis Specimens see opertive report Drains wound vac left elbow Complications see anesthesia report Disposition Accompanied Patient To Recovery: Yes Disposition: Recovery Room Indications This 51-year-old male presented to the office with complaints of left elbow drainage from his previous surgical wound. There was concern for recurrent infection and patient was recommended to proceed with irrigation and debridement. He was in agreement and informed written consent was obtained by Dr. Lara. Preoperative lab work was obtained. Description of Procedure Patient was taken to the operating room where he was given general anesthesia. He was prepped and draped in the usual sterile fashion. Please see Dr. Lara's operative report for specifics of the procedure. I was present for the entire case from initial patient positioning through final wound closure. Assistance was provided in tissue retraction, hemostasis, final wound closure, and wound VAC application. Patient was taken to the recovery room in satisfactory condition. I attest to the content of the Intraoperative Record and any orders documented therein. Any exceptions are noted below.
[2021-03-04] MEDS: fentaNYL citrate 100 MCG/2 ML VIAL IV PRN ×4 (09:49→10:04)
--- NOTE | 2021-03-04 10:24 | Anesthesiology Progress Note ---
Date of Service March 04, 2021 Anesthesia Post Procedure Vital Signs Vital Signs: Temp Pulse Pulse Resp BP Pulse Ox 03/04/21 10:20 36.4 C L 71 14 124/79 96 03/04/21 10:10 60 14 138/87 97 03/04/21 10:00 65 14 131/84 99 03/04/21 09:50 62 14 142/89 H 100 03/04/21 09:40 76 13 143/84 H 100 03/04/21 09:31 36.2 C L 81 12 169/85 H 100 03/04/21 06:11 36.8 C 74 18 159/98 H 95 Transfer of Care Handoff Completed per policy Notes Mental Status: alert / awake / arousable Patient Amnestic to Procedure: Yes Nausea / Vomiting: adequately controlled Pain: adequately controlled Airway Patency, RR, SpO2: stable & adequate BP & HR: stable & adequate Hydration State: stable & adequate Anesthetic Complications: no major complications apparent
[2021-03-04] MEDS ORDERED: VANCOMYCIN CONSULT ACTIVE PRN (10:45)
[2021-03-04] MEDS ORDERED: ALUMINUM/MAGNESIUM SUSP 30 ML UDC PO PRN (10:45)
[2021-03-04] MEDS ORDERED: MAGNESIUM HYDROXIDE SUSP 30 ML UDC PO PRN (10:45)
[2021-03-04] MEDS ORDERED: ACETAMINOPHEN 325 MG TAB PO PRN (10:45)
[2021-03-04] MEDS ORDERED: METOCLOPRAMIDE HCL INJ 5 MG/ML 2 ML VIAL IV PRN (10:45)
[2021-03-04] MEDS ORDERED: diphenhydrAMINE 50 MG/ML VIAL IV PRN (10:45)
[2021-03-04] MEDS ORDERED: LORazepam 1 MG TAB PO PRN (10:59)
--- NOTE | 2021-03-04 11:30 | Pharmacy Report ---
Pharmacy Abx Initial Consult - Date of Service March 04, 2021 - Pharmacy Dosing Scope Date of Consult: 03/04/21 Consultation requested by: Singh Echevarria Pharmacy is consulted to initiate Vancomycin IV dosing therapy, order appropriate labs and adjust drug dose/frequency. - Subjective The patient is a 51 year old M s/p left elbow irrigation and debridement with wound VAC placement, starting IV Vancomycin for skin infection. - Objective Height: 5 ft 11 in Weight: 126.552 kg Vital Signs (Past 12hrs): Vital Signs Temp Pulse Pulse Resp BP Pulse Ox 03/04/21 10:45 36.4 C L 68 16 123/74 99 03/04/21 10:20 36.4 C L 71 14 124/79 96 03/04/21 10:10 60 14 138/87 97 03/04/21 10:00 65 14 131/84 99 03/04/21 09:50 62 14 142/89 H 100 03/04/21 09:40 76 13 143/84 H 100 03/04/21 09:31 36.2 C L 81 12 169/85 H 100 03/04/21 06:11 36.8 C 74 18 159/98 H 95 Micro Results: 03/04/21 08:20 Gram Stain - Final Elbow,Left Aerobic and Anaerobic Culture - Pending 03/04/21 08:09 Gram Stain - Pending Elbow,Left Aerobic and Anaerobic Culture - Pending - Assessment & Plan Assessment 51 year old M s/p left elbow I&D with wound VAC placement Elbow cultures pending Patient received 1500mg (~11mg/kg) IV Vancomycin preop today at 0845 Plan Vancomycin for treatment of skin of elbow infection Vancomycin IV * Estimated PK Parameters: Vd 0.6 L/kg, Dm 0.1 hr-1, t1/2 6.9hr * Loading dose: skip, as patient already had 1500mg IV at 0845 today, begin maintenance dose now to give load. * Maintenance dose: 2000 mg IV (15 mg/kg) every 8 hours * Goal trough level for skin infection : 15 to 20 mcg/mL * Trough level ordered for 03/05/21 prior to 2000 dose * Monitor for accumulation and decrease dose if needed, BMI 38.9kg/m2 Pharmacy will continue to follow and will adjust dose/frequency as necessary. Thank you.
[2021-03-04] MEDS: VANCOMYCIN HCL 2,000 MG in SODIUM CHLORIDE 0.9% 500 ML IV SCH ×2 (13:59→20:25)
[2021-03-04] MEDS: oxyCODONE HCL IR 5 MG TAB (IMMEDIATE RELEASE) PO PRN ×3 (14:00→22:33)
[2021-03-04] MEDS: SODIUM CHLORIDE 0.9% 1000ML 1,000 ML IV SCH ×2 (14:00→20:25)
[2021-03-04] MEDS: gemfibroziL 600 MG TAB PO SCH (17:32)
--- NOTE | 2021-03-04 18:38 | XRay Report ---
XR elbow LT min 3V routine CLINICAL HISTORY: left elbow s/p hardware removal COMPARISON: 01/06/2021 DISCUSSION: No fractures or dislocations are visualized. There is mild irregularity of the coronoid p rocess of the ulna. There are circular bony defects within the proximal radius, likely related to estrada or surgery. No radiopaque foreign bodies are visualized. There is a small amount of air within the so ft tissues likely postsurgical IMPRESSION: 1. Soft tissue gas is likely postsurgical 2. Bony defects within the proximal radius likely postsurgical 3. Mild nonspecific irregularity of the coronoid process of the ulna similar to the prior study ACT 112: Negative or not required by law. Electronically signed by: Harris Hanson M.D. 03/04/2021 6:37 PM
[2021-03-04] MEDS: SULINDAC 150 MG TAB PO SCH (20:25)
[2021-03-04] MEDS: DOCUSATE SODIUM 100 MG CAP PO SCH (20:25)
[2021-03-05] MEDS: SODIUM CHLORIDE 0.9% 1000ML 1,000 ML IV SCH ×2 (04:43→11:37)
[2021-03-05] MEDS: VANCOMYCIN HCL 2,000 MG in SODIUM CHLORIDE 0.9% 500 ML IV SCH ×3 (04:43→20:12)
[2021-03-05 06:49] LABS: Creatinine Clr Calc Pharmacy 163.6 ml/min; Est GFR (African American) 125.5; Est GFR (Non-African American) 108.3
[2021-03-05] MEDS: SULINDAC 150 MG TAB PO SCH ×2 (07:18→20:11)
[2021-03-05] MEDS: DOCUSATE SODIUM 100 MG CAP PO SCH ×2 (07:18→20:11)
[2021-03-05] MEDS: oxyCODONE HCL IR 5 MG TAB (IMMEDIATE RELEASE) PO PRN ×3 (07:18→20:11)
[2021-03-05] MEDS: gemfibroziL 600 MG TAB PO SCH ×2 (07:19→16:26)
[2021-03-05] MEDS: PANTOprazole 40 MG TAB PO SCH (07:19)
[2021-03-05] MEDS: MULTIVITAMIN TAB PO SCH (07:19)
--- NOTE | 2021-03-05 09:53 | Orthopedic Progress Note ---
Date of Service March 05, 2021 Assessment & Plan (1) Postoperative wound infection: POD # 1, S/P I&D Left elbow, removal orthopedic hardware, incisional wound vac placement, failed distal biceps repair. Patient will continue IV vancomycin with pharmacy monitoring the trough Awaiting infectious disease evaluation for proper antibiotic choice and treatment length Keep dressing in place. Plan is to remove the wound VAC tomorrow with possible replacement Continue pain control with p.o. medication Continue to follow Cx. Ice with EZ WRAP Hep trap IV. I, Dr. Lara, saw and examined and agree with the above findings and plan of care discussed with my PA. Will obtain MRI left elbow to asses for osteomyelitis after discontinuing wound vac, as unable to obtain MRI while wound vac in place. Admission and Anticipated Discharge Date Admission Date: March 04, 2021 Subjective Doing alright This 51-year-old male seen today on the third floor. He is day 1 status post Left Elbow Irrigation & Debridement, Removal orthopedic harware, deep, Incisional wound vac placement performed by Dr. Kyle Lara. Patient states she is doing Fairly well. He states that his pain is controlled with the p.o. pain medication. Currently he is on IV antibiotics and has a wound VAC in his left upper extremity just distal to the elbow. Patient denies fever, chills, sweats, lethargy, nausea, vomiting, diarrhea, chest pain or shortness of breath. States that he is not seen infectious disease as of yet. It is his understanding that he will most likely have the wound VAC removed tomorrow. Review of Systems Review of Systems: All systems reviewed & are unremarkable except as noted in Subjective Physical Exam Physical Exam: Left upper extremity: Dressing is clean dry and intact. Wound VAC is in place with 20 mL of blood-tinged fluid in the Canister. Patient is able to reach 95 degrees of flexion in the elbow and is approximately 8 degrees short of terminal extension. He has full range of motion of his wrist. Appropriate dexterity of his fingers. Fire Alarm Installer strength is equal bilaterally. Patient has no referred pain with resisted extension at the IP or MTP joint of the thumb. Peripheral pulses 2+. Capillary refill is less than 2 seconds. Patient is neurovascular intact in the left upper extremity. Results & Data ([facility]) Vital Signs (Past 12 Hours) Vital Signs Temp Pulse Resp BP Pulse Ox 03/05/21 07:20 36.6 C 60 18 145/91 H 96 03/04/21 22:22 36.6 C 73 18 140/81 94 Laboratory Results 03/05/21 Range/Units 05:28 Creatinine 0.74 (0.6-1.4) mg/dl Est Cr Clr Drug Dosing 163.6 ml/min Est GFR ( Amer) 125.5 Est GFR (Non-Af Amer) 108.3 Gram stain No Organisms, Rare Polys & No Organisms, few WBC's Cx Pending Diagnostic Findings 3 views left elbow showed post surgical changes with drill holes in Radial Tuberosity and Wound vac in place. No Acute fx or dislocation.
[2021-03-05] MEDS ORDERED: VANCOMYCIN TROUGH ONE (19:30)
--- NOTE | 2021-03-05 20:53 | Pharmacy Report ---
Pharmacy Abx Dose Short Note - Date of Service March 05, 2021 - Assessment & Plan Assessment 51 year old M receiving vancomycin for treatment of SSTI Day # 2 of antimicrobial therapy. Plan Vancomycin * Trough level came back therapeutic at ~17 mcg/ml (goal 15-20 mcg/ml) * Plan to continue same vancomycin dosing for now, may consider rechecking trough soon to assess for accumulation * Renal function remains stable Pharmacy will continue to follow and will adjust dose/frequency as necessary. Thank you.
[2021-03-05] MEDS ORDERED: ACETAMINOPHEN 1,000 MG/100 ML VIAL IV STA (22:08)
[2021-03-05] MEDS ORDERED: ACETAMINOPHEN 1000 MG/100 ML IV IV ONE (22:16)
[2021-03-06] MEDS: oxyCODONE HCL IR 5 MG TAB (IMMEDIATE RELEASE) PO PRN ×3 (04:36→20:13)
[2021-03-06] MEDS: VANCOMYCIN HCL 2,000 MG in SODIUM CHLORIDE 0.9% 500 ML IV SCH ×3 (04:38→20:16)
[2021-03-06 06:33] LABS: Creatinine Clr Calc Pharmacy 159.3 ml/min; Est GFR (African American) 124.2; Est GFR (Non-African American) 107.1
--- NOTE | 2021-03-06 06:51 | Orthopedic Progress Note ---
Date of Service March 06, 2021 Assessment & Plan (1) Postoperative wound infection: POD # 2, S/P I&D Left elbow, removal orthopedic hardware, incisional wound vac placement, failed distal biceps repair. Patient will continue IV vancomycin with pharmacy monitoring the trough Appreciate infectious disease input 03/04/21 D/C wound VAC 03/06/21. Covered incision with DSD Continue pain control with p.o. medication Continue to follow Cx. Ice with EZ WRAP Hep trap IV. Will obtain MRI left elbow to asses for osteomyelitis. Activities as tolerated. Admission and Anticipated Discharge Date Admission Date: March 04, 2021 Subjective Left elbow pain Physical Exam Physical Exam: LUE: Neurovascularly intact. Incision is clean, dry, intact. No significant drainage in wound vac canister. Results & Data ([facility]) Vital Signs (Past 12 Hours) Vital Signs Temp Pulse Resp BP Pulse Ox 03/05/21 22:09 36.3 C L 62 24 146/85 H 98 03/05/21 21:52 36.4 C L 69 20 99 Laboratory Results 03/06/21 03/05/21 03/05/21 Range/Units 05:42 19:27 05:28 Creatinine 0.76 0.74 (0.6-1.4) mg/dl Est Cr Clr Drug Dosing 159.3 163.6 ml/min Est GFR ( Amer) 124.2 125.5 Est GFR (Non-Af Amer) 107.1 108.3 Vancomycin Trough 17.8 (See Comment) mcg/ml Gram stain No Organisms, Rare Polys & No Organisms, few WBC's Cx No growth to date
[2021-03-06] MEDS: SULINDAC 150 MG TAB PO SCH ×2 (07:56→20:15)
[2021-03-06] MEDS: PANTOprazole 40 MG TAB PO SCH (07:57)
[2021-03-06] MEDS: gemfibroziL 600 MG TAB PO SCH ×2 (07:57→16:57)
[2021-03-06] MEDS: MULTIVITAMIN TAB PO SCH (07:57)
[2021-03-06] MEDS: DOCUSATE SODIUM 100 MG CAP PO SCH ×2 (07:57→20:15)
--- NOTE | 2021-03-06 09:22 | Orthopedic Progress Note ---
Date of Service March 06, 2021 Assessment & Plan (1) History of elbow surgery: Patient was seen in his room this morning. His dressing is dry. Neurovascular status is intact and unremarkable. Due to his symptoms last night and today, I will order a chest x-ray. His wound VAC has been removed. We will proceed with MRI imaging of his elbow today. Continue IV antibiotics. Please see Dr. Lara's note from this morning for further care. Admission and Anticipated Discharge Date Admission Date: March 04, 2021 Subjective Patient is seen in his room this morning. His drain has already been removed by Dr. Lara. A dry sterile dressing is in place. He states that he has some discomfort in his elbow. He also notes that last night he had a difficult night. He states he had shortness of breath last night and had a sensation of difficulty swallowing. He states he continues to have some epigastric and lower rib discomfort when he takes a deep breath. He also states it is difficult to take a deep breath. He denies any chest pain. No nausea or vomiting. He did have some neck pain last night, but this has resolved. No other complaints. Physical Exam Physical Exam: General: Well-developed, middle-aged white male, in no acute distress. Sitting in his chair. Alert and conversive. Musculoskeletal: Patient has intact motor function to his wrist and digits. There is also intact motion to his elbow, though this was not put through a full range of motion. He does have full range of motion of his wrist and digits. Able to make a fist and AB duct each of his fingers. He has intact thumb extension as well as wrist extension. Heart: RRR, no MGR. Lungs: Clear to auscultation bilaterally. No crackles, rhonchi, or wheezing. Good air movement. He is able to take a deep breath. Neurologic: Gross sensation is intact across each of the digits of the left hand by soft touch. Peripheral pulses are 2+. Results & Data ([facility]) Vital Signs (Past 12 Hours) Vital Signs Temp Pulse Resp BP Pulse Ox 03/06/21 07:08 36.5 C 62 16 124/76 95 03/05/21 22:09 36.3 C L 62 24 146/85 H 98 03/05/21 21:52 36.4 C L 69 20 99
--- NOTE | 2021-03-06 09:42 | XRay Report ---
XR chest 2V PA/lateral CLINICAL HISTORY: SOB after surgery COMPARISON STUDY: 01/20/2021 FINDINGS: The cardiac and mediastinal contours are normal. There is no evidence of focal pulmonary co nsolidation. There is no evidence of failure. No pleural effusions are visualized.[ IMPRESSION: No active disease in the chest. ACT 112: Negative or not required by law. Electronically signed by: Harris Hanson M.D. 03/06/2021 9:40 AM
--- NOTE | 2021-03-06 10:12 | Hospitalist Consultation ---
Date of Consultation March 06, 2021 Assessment & Plan (1) Shortness of breath: had transient episode of SOB last night post op pt reports he was very anxious after recovering from anesthesia , and pain on surgical site made the symptoms worse feeling well since this AM , requiring no oxygen , walking in room with no complain of SOB , BRIONES pt is encouraged to use incentive spirometry dysphagia : possible due to post anesthesia procedure /ET for intubation symptoms getting better , pt has no difficulty to swallowing liquid ordered for chlorseptic spray soft diet for 24 hrs (2) History of elbow surgery: (3) Postoperative wound infection: s/p I& D -post op surgical site dressing , as per Ortho thank you for allowing to participate in care of the patient , will cont to follow during hospital stay History of Present Illness Reason for Consultation: shortness of breath , sore throat Requesting Physician: Dr Lara Attending Physician: Kyle Lara MD History of Present Illness This a 51 yo gentleman underwent repeat I&D of left elbow infection post op last night pt was complaining of shortness of breath , noted to be hypoxic enquired supplemental 02 this morning , was experiencing sore throat ,difficulty in swallowing med pt seen and examined at bedside , in room air , no hypoxia , no shortness of breath or BRIONES no cough sore throat improved , experienced pain and difficulty in swallowing dry toast in breakfast since then symptoms has improved soreness of throat possibly due to ET tube during anesthesia should improve slowly , asked to eat soft diet for today no cough or sob , no fever or chills offers no other complain Allergies Allergy/AdvReac Type Severity Reaction Status Date / Time No Known Allergies Allergy Mild NONE Verified 03/04/21 06:06 Home Medications Medication Instructions Recorded Confirmed Type [place]-3 Fish Oil 1,000 mg PO BID 03/02/19 03/04/21 History gemfibrozil [Lopid] 600 mg PO BID 03/02/19 03/04/21 History hydrocodone-acetaminophen 1 tab PO BID PRN 03/02/19 03/04/21 History lorazepam [Ativan] 1 mg PO DIRECTED PRN 03/02/19 03/04/21 History pantoprazole 40 mg PO QAM 03/02/19 03/04/21 History sulindac 150 mg PO BID 03/02/19 03/04/21 History oxycodone 5 mg PO Q4H PRN #15 tab 01/06/21 03/04/21 Rx amiloride-hydrochlorothiazide 1 tab PO QAM 01/19/21 03/04/21 History cyanocobalamin (vitamin B-12) 1,000 mcg PO QAM 01/19/21 03/04/21 History multivitamin 1 tab PO QAM 01/19/21 03/04/21 History Patient History Medical History Anxiety Arthritis Elevated triglycerides with high cholesterol GERD (gastroesophageal reflux disease) controlled History of kidney stones History of seizure Seizure onset at age 11 (after tree falling on head) > most recent seizure 12+ years ago, controlled off anticonvulsants Hx of bladder cancer no chemo or xrt, under surveillance by urology (Dr. Beckett; [facility]) Obesity Sleep apnea CPAP Surgical History History of arthroscopic knee surgery Left History of cystoscopy History of esophagogastroduodenoscopy (EGD) History of incision and drainage Left Elbow Wound Incision and Drainage (02/12/21): LMA#5 at [facility] Hx of cholecystectomy Hx of LASIK Family History Mother Family history of diabetes mellitus Other No family history of adverse response to anesthesia Social History (Updated 03/03/21 @ 15:48 by Singh Echevarria PA-C) Smoking Status: Former smoker Smoking End Date: late ; Second Hand Exposure: No; Do You Dip or Chew Tobacco: No; Tobacco Cessation Education Requested by Patient: No Hx Alcohol Use: Yes Alcohol type: hard liquor Hx Substance Use: No Preferred Language: Malay Communication Ability: Effective 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 Beliefs That Will Affect Care: None marital status: Current Living Situation: Spouse and Family current occupational status: employed Other Information That Helps Us Care for You: No Feels Safe at Home: Yes Safety Concerns: Feels Safe At This Time Assistive Devices: None Review of Systems Review of Systems: All systems reviewed & are unremarkable except as noted in Subjective Physical Exam Physical Exam: Physical exam: General: obese /No acute distress, alert awake oriented x3 HEENT: PERRLA, EOMI, Heart: Regular S1-S2, no carotid bruit, no JVD, no lower extremity edema Lungs: Clear to auscultate, no wheeze or rales Abdomen: Soft nontender, no organomegaly Extremity: s/p left elbow surgery Neuro: No focal neurological deficit normal speech, normal visual field, Motor strength : normal both upper and lower extremity, sensation intact Psych: Alert awake oriented x3, normal affect Results & Data Results & Data ([facility]) Vital Signs (Past 12 Hours) Vital Signs Temp Pulse Resp BP Pulse Ox 03/06/21 07:08 36.5 C 62 16 124/76 95
[2021-03-06] MEDS ORDERED: COUGH DROP (SUGAR FREE) LOZ 24 LOZ/1 BOX BUCCAL PRN (12:13)
[2021-03-06] MEDS ORDERED: CHLORASEPTIC 1.4% SOLN 180 ML BTL MT PRN (12:13)
--- NOTE | 2021-03-06 12:19 | Anesthesiology Progress Note ---
Date of Service March 06, 2021 Anesthesia Post Procedure Vital Signs Vital Signs: Temp Pulse Resp BP Pulse Ox 03/06/21 07:08 36.5 C 62 16 124/76 95 03/05/21 22:09 36.3 C L 62 24 146/85 H 98 03/05/21 21:52 36.4 C L 69 20 99 03/05/21 15:24 36.5 C 56 L 16 127/75 96 Pain Intensity Left Elbow: Pain Intensity: 6 Notes Mental Status: alert / awake / arousable Patient Amnestic to Procedure: Yes Nausea / Vomiting: adequately controlled Pain: adequately controlled Airway Patency, RR, SpO2: stable & adequate BP & HR: stable & adequate Hydration State: stable & adequate Anesthetic Complications: no major complications apparent and see Notes below Notes: I was called by Singh Echevarria PA-C orthopedics that the patient had complaints of sore throat and mild difficulty breathing. Chest x-ray performed showed no acute disease. On visual inspection there are no lacerations, dental damage, edema intraorally. Uvula is midline without edema. There are no lip lacerations or external damage. Swallowing is appropriate. Patient is not drooling. No hoarseness of voice noted. Patient admits that he had some difficulty breathing most likely secondary to anxiety which was relieved with anxiolytics. Spoke with his hospitalist and will plan for local anesthetic spray, soft diet, ice chips. Patient satisfied with intervention.
[2021-03-06] MEDS ORDERED: VANCOMYCIN TROUGH ONE (19:30)
--- NOTE | 2021-03-06 20:40 | Pharmacy Report ---
Pharmacy Abx Dose Short Note - Date of Service March 06, 2021 - Assessment & Plan Assessment 51 year old M receiving vanc for treatment of SSTI. Plan Vancomycin * Trough level of 24.7 mcg/mL is supratherapeutic. * 2000 dose was stopped after ~15 minutes. Will hold any further doses for an additional 4 hours and Change to 1500 mg IV every 8 hours * Goal trough level : 15 to 20 mcg/mL * Trough or random level ordered for: 03/07/21 @3018 Pharmacy will continue to follow and will adjust dose/frequency as necessary. Thank you.
[2021-03-06] MEDS: VANCOMYCIN HCL 1,500 MG in SODIUM CHLORIDE 0.9% 500 ML IV SCH (23:05)
[2021-03-07] MEDS: oxyCODONE HCL IR 5 MG TAB (IMMEDIATE RELEASE) PO PRN (02:24)
[2021-03-07 06:29] LABS: Creatinine Clr Calc Pharmacy 137.6 ml/min; Est GFR (African American) 116.9; Est GFR (Non-African American) 100.9
[2021-03-07] MEDS: gemfibroziL 600 MG TAB PO SCH (08:05)
[2021-03-07] MEDS: VANCOMYCIN HCL 1,500 MG in SODIUM CHLORIDE 0.9% 500 ML IV SCH (08:10)
[2021-03-07] MEDS: PANTOprazole 40 MG TAB PO SCH (09:17)
[2021-03-07] MEDS: DOCUSATE SODIUM 100 MG CAP PO SCH (09:17)
[2021-03-07] MEDS: MULTIVITAMIN TAB PO SCH (09:17)
[2021-03-07] MEDS: SULINDAC 150 MG TAB PO SCH (09:17)
--- NOTE | 2021-03-07 11:19 | Orthopedic Progress Note ---
Date of Service March 07, 2021 Assessment & Plan (1) Postoperative wound infection: POD # 3, S/P I&D Left elbow, removal orthopedic hardware, incisional wound vac placement, failed distal biceps repair. Appreciate infectious disease input, spoke with Dr. Light today, discussed that with hardware removed could treat with either oral or IV. Stated P Acnes is an indolent bacteria. Requested f/u in 2 weeks. Continue to monitor WBC, ESR & CRP. If rising or wound shows signs of infection can change Abx as outpatient. D/C wound VAC 03/06/21. Change dressing to DSD PRN Continue pain control with p.o. medication Continue to follow Cx. Ice with EZ WRAP Hep trap IV. Were unable to obtain MRI left elbow, ID did not think it would add anything. Activities as tolerated. After discussion with patient about treatment options and pros and cons, has elected to be treated with oral Abx for 2 weeks. D/C home later today on Amoxicillin/Clavulanate Follow up in Dr. Lara's office this week for incision check. Admission and Anticipated Discharge Date Admission Date: March 04, 2021 Subjective Feeling better, shoulder feels fine. No CP Review of Systems Review of Systems: All systems reviewed & are unremarkable except as noted in HPI & below Physical Exam Physical Exam: LUE: Neurovascularly intact. Dressing is clean, dry, intact. Results & Data ([facility]) Vital Signs (Past 12 Hours) Vital Signs Temp Pulse Resp BP Pulse Ox 03/07/21 07:38 36.4 C L 53 L 16 121/79 96 03/06/21 23:12 36.3 C L 56 L 18 121/74 96 Laboratory Results 03/07/21 03/06/21 Range/Units 05:50 19:35 Creatinine 0.88 (0.6-1.4) mg/dl Est Cr Clr Drug Dosing 137.6 ml/min Est GFR ( Amer) 116.9 Est GFR (Non-Af Amer) 100.9 Vancomycin Trough 24.7 (See Comment) mcg/ml Gram stain No Organisms, Rare Polys & No Organisms, few WBC's Cx No growth to date
[2021-03-07] MEDS ORDERED: VANCOMYCIN TROUGH ONE (15:30)
--- NOTE | 2021-03-12 06:42 | Discharge Summary (DS) ---
Patient of Dr. Lara. PROCEDURE: Left elbow irrigation and debridement, removal of orthopedic hardware, incisional wound VAC placement. CONSULTATIONS: Anesthesia, pharmacy, hospitalist service, and infectious disease [facility] service. ALLERGIES: NKDA. PAST MEDICAL HISTORY: Significant for anxiety, arthritis, elevated triglycerides, elevated cholesterol, GERD, history of kidney stones, history of seizure as a child, history of bladder cancer, obesity, sleep apnea with CPAP use. PAST SURGICAL HISTORY: Left knee arthroscopy, cystoscopy, EGD, previous left elbow I and D on 02/12/2021, left elbow distal biceps tendon repair, history of cholecystectomy, history of LASIK eye surgery. FAMILY HISTORY: Significant for diabetes. SOCIAL HISTORY: The patient is a former smoker. Positive ETOH use. . Employed. HOSPITAL COURSE: The patient was admitted through same day surgery on 03/04/2021. He underwent left elbow irrigation and debridement with removal of orthopedic hardware and incisional wound VAC placement. The patient did well in recovery. Overnight, the patient received IV antibiotics. There were no other complaints at that time. His day was uneventful. Overnight on 03/05/2021, he did experience an episode of difficulty breathing with some shortness of breath and sensation of difficulty swallowing. On the morning of 03/06/2021, he continued to have epigastric and lower rib discomfort with deep breaths. He also stated it was difficult to take a deep breath. There was no chest pain. No nausea or vomiting. His exam that day was unremarkable. Wound VAC was discontinued on 03/06/2021. Heart and lungs were clear with regular rhythm. He had full range of motion of his left arm, wrist, and digits. Neurovascular status to the left arm was unremarkable. Chest x-ray obtained that day was read by radiology as clear without evidence for pneumonia. Hospitalist service and anesthesia, both evaluated him that day. He had no further episodes of shortness of breath and his swallowing was appropriate. His symptoms were felt to be related to anxiety. He was able to use a local anesthetic spray for his throat discomfort. IV antibiotics continued. His night was uneventful. On the morning of 03/07/2021, the patient was again seen by Dr. Lara. Dressings were changed. His pain was controlled with oral medication. The patient was discharged to home on amoxicillin t.i.d. x2 weeks. He will follow up in the office in 2 weeks for evaluation. The patient will also need to be seen by infectious disease for evaluation as well. Appointments will be made as an outpatient. Vitals at discharge, BP 121/79, pulse 53, respirations 16, temperature 36.4, O2 sat 96% on room air. LABORATORY DATA: Creatinine 0.88, BUN 19, glucose 111. Labs obtained on 03/03/2021 show a sed rate of 13 and CRP of less than 0.29. DISCHARGE INSTRUCTIONS: Written discharge instructions were provided. Follow up in the office on with Dr. Lara for reevaluation. Change the elbow dressing as needed for soiling. Gentle motion daily to prevent stiffness. Follow up with Dr. Elfego Light from [facility] infectious disease in 2 weeks. Wound culture results are pending. DISCHARGE MEDICATIONS: Amoxicillin 500 mg t.i.d., amiloride/HCTZ q.a.m., vitamin B12 1000 mcg q.a.m., gemfibrozil 600 mg b.i.d., Vicodin 1 tablet b.i.d. p.r.n., Ativan 1 mg as needed, multivitamin daily, fish oil daily, pantoprazole 40 mg q.a.m., sulindac 150 mg p.o. b.i.d., discontinue his previous oxycodone. MTDD
--- NOTE | 2021-03-19 10:14 | Coding Query ---
CODING QUERY To promote full compliance with coding requirements relating to patient care, provider participation is requested in all cases of pre billing specialist uncertainty. Please assist us with the question(s) below: Coding Question(s): The H&P and Progress Notes document Postoperative Wound Infection and the ID Consultation documents, "The reason for the persistence of infection after the last I&D is presumably from retained hardware", and the OP Report documents, "The patient is 51 year old male history of recurrent draining left elbow wound following I&D 3 weeks ago, after recent left distal biceps tendon repair, again appears to have a superficial infection". Please specify below, in your clinical opinion. ( x) Postoperative Wound Infection is postoperative complication that is Not due to the hardware ( ) Postoperative Wound Infection is postoperative complication that is likely Due to the hardware ( ) Other: Please Specify Physician's Response(s): Thank you Tegan Hurley Principal Diagnosis: "that condition established after study, to be chiefly responsible for occasioning the admission of the patient to the hospital for care." Co-Existing Principal Diagnosis: "when two or more diagnoses equally meet the criteria for principal diagnosis as determined by the circumstances of admission, diagnostic work up, and/or therapy provided, and the Alphabetic Index, Tabular List, or another coding guideline does not provide sequencing direction, any one of the diagnoses may be sequenced first." "When the physician has documented what appears to be a current diagnosis in the body of the record, but has not included the diagnosis in the final diagnostic statement, the physician should be asked whether the diagnosis should be added." (Source Coding [facility] 2 QTR90. p3-4) [id number]
== END 2021-03-07 13:35 | disposition home or self-care (01) | DRG 857 ==
LOC: ASU 05:46 → 3E 09:51
DX: Z88.6 Allergy status to analgesic agent; Z68.38 Body mass index [BMI] 38.0-38.9, adult; Z87.891 Personal history of nicotine dependence; S46.212A Strain of muscle, fascia and tendon of other parts of biceps, left arm, initial encounter; T84.192A Other mechanical complication of internal fixation device of bone of right forearm, initial encounter; R09.02 Hypoxemia; X50.0XXA Overexertion from strenuous movement or load, initial encounter; R06.02 Shortness of breath; B96.89 Other specified bacterial agents as the cause of diseases classified elsewhere; Y83.8 Other surgical procedures as the cause of abnormal reaction of the patient, or of later complication, without mention of misadventure at the time of the procedure; Z79.899 Other long term (current) drug therapy; E78.2 Mixed hyperlipidemia; L98.8 Other specified disorders of the skin and subcutaneous tissue; R13.10 Dysphagia, unspecified; G47.33 Obstructive sleep apnea (adult) (pediatric); Y99.0 Civilian activity done for income or pay; M19.90 Unspecified osteoarthritis, unspecified site; T81.49XA Infection following a procedure, other surgical site, initial encounter; F41.9 Anxiety disorder, unspecified; E66.9 Obesity, unspecified; Z79.1 Long term (current) use of non-steroidal anti-inflammatories (NSAID); K21.9 Gastro-esophageal reflux disease without esophagitis

== ENCOUNTER 2022-01-18 13:51 | Inpatient (IN) ==
[2022-01-18] MEDS ORDERED: SODIUM CHLORIDE 0.9% 1000ML 1,000 ML IV SCH (14:45)
--- NOTE | 2022-01-18 14:55 | Emergency Department Note ---
Impression & Plan Nausea & vomiting, Somnolence, Hypoxia, Hyperglycemia due to type 2 diabetes mellitus ED Provider Note Provider: Darek Argueta MD DATE OF SERVICE: 01/18/2022 CHIEF COMPLAINT: Vomiting, fatigue HISTORY OF PRESENT ILLNESS: Patient is a 52-year-old gentleman history of bladder cancer previously treated, kidney disease, and more recently diabetes on Metformin presenting here today reporting that he felt nauseous and vomiting this afternoon. Patient is quite fatigued as well. is present and provides additional history. Reportedly patient was well this morning and went off to work without issue. Had 2 pieces of pizza per 's report Work and then she received reports as well as the patient's son that he was unwell and very fatigued and throwing up. Patient denies headache at this time or significant abdominal pain. Patient denies chest pain or shortness of breath. Patient states he feels very fatigued. Denies any other medication use disorders. Has been on Metformin for just over a month. No trauma is reported. Patient does reportedly wear CPAP/BiPAP at night with an oxygen at home. REVIEW OF SYSTEMS: A total of 10 review of systems was obtained and negative except as stated above in the HPI. PAST MEDICAL HISTORY: As noted above MEDICATIONS: Reviewed on medication list SOCIAL HISTORY: Lives at home with and son PHYSICAL EXAM: GENERAL: alert to verbal stimuli and oriented in no acute distress on stretcher fatigued in appearance resting with eyes closed Head: normocephalic and atraumatic EYES: No injection, discharge or icterus. NECK: Trachea midline. Supple. ENT: Mucous membranes pink and moist. LUNGS: Airway patent. No retractions. Breath sounds clear with good air entry bilaterally. HEART: Regular rate and rhythm. No chest wall tenderness ABDOMEN: Soft and non-tender, without guarding or rebound. SKIN: Acyanotic, warm, dry, without rashes EXTREMITIES: Without swelling, tenderness or deformity NEUROLOGICAL: No focal deficits in all extremities. No aphasia. No facial droop or slurred speech. EK bpm normal sinus rhythm. No PVC or PAC. No acute ST segment elevation or depression. QTc 426. This. 3 T wave inversion noted. CONTINUOUS CARDIAC MONITORING: was ordered and showed a heart rate of 60s bpm in sinus rhythm Patient's laboratory studies and imaging reviewed. Differential includes Infection, dehydration, metabolic abnormality, hypo/hyperglycemia, electrolyte disturbance, anemia, hypoxia, cardiac sources, intracerebral event, toxicologic, neurologic, as well as other pathologies. IMPRESSION/MEDICAL DECISION MAKING: Patient fatigued in appearance but responds to verbal stimuli and follows commands. No trauma reported or significant headache. Afebrile here. CT the head will be completed. Patient when resting has some borderline hypoxia in the 89 to 90% range but does usually wear BiPAP at night. VBG will be sent. Chest x-ray be completed. Benign abdomen on exam. Laboratory studies to be completed including TSH. PSG initially as only in the high 200s. Given some IV fluids. Denies nausea at this time. Here without significant acidosis or hypercarbia. Normal INR. CBC without significant anemia or leukocytosis. Mild hypokalemia hyponatremia noted. Creatinine appears normal. Glucose is elevated in the high 200s. Mild AST and ALT elevation. CK just mildly elevated but minimally. No evidence of pancreatitis. Troponin not elevated and EKG without significant changes concerning for acute ACS. Chest x-ray without significant findings. Given his drowsiness was placed on a small amount of nasal cannula supplementation. Not necessarily classic a trial dose of Narcan as he did take he took one of his Vicodin earlier to see if this had any effect on his mental status. No significant affect. Unclear why he is quite as somnolent. Low suspicion at this time for PE. Nonfocal exam. Given this will recommend further observation here. updated at bedside. DIAGNOSIS: Nausea and vomiting, hyperglycemia due to type 2 diabetes, somnolence DISPOSITION: Hospitalist will evaluate Patient was agreeable with this plan. Past Med/Surg History Medical History Anxiety Arthritis Elevated triglycerides with high cholesterol GERD (gastroesophageal reflux disease) controlled History of kidney stones History of seizure Seizure onset at age 11 (after tree falling on head) > most recent seizure 12+ years ago, controlled off anticonvulsants Hx of bladder cancer no chemo or xrt, under surveillance by urology (Dr. Beckett; [facility]) Obesity Sleep apnea CPAP Surgical History History of arthroscopic knee surgery Left History of cystoscopy History of esophagogastroduodenoscopy (EGD) History of incision and drainage Left Elbow Wound Incision and Drainage (02/12/21): LMA#5 at [facility] Hx of cholecystectomy Hx of LASIK Family History Mother Family history of diabetes mellitus Other No family history of adverse response to anesthesia Social History (Updated 03/03/21 @ 15:48 by Singh Echevarria PA-C) Smoking Status: Never smoker Second Hand Exposure: No; Hx Alcohol Use: Yes Alcohol type: hard liquor Hx Substance Use: No Preferred Language: Yakut Communication Ability: Effective Shift Nurse 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 Required: No Beliefs That Will Affect Care: None marital status: Current Living Situation: Spouse and Family current occupational status: employed Feels Safe at Home: Yes Assistive Devices: None Allergies Allergies Allergy/AdvReac Type Severity Reaction Status Date / Time No Known Allergies Allergy Mild NONE Verified 01/18/22 15:07 Home Meds Home Medications Medication Instructions Recorded Confirmed gemfibrozil 600 mg tablet (Lopid) 600 mg PO BID 03/02/19 01/18/22 hydrocodone 5 mg-acetaminophen 325 1 tab PO BID PRN 03/02/19 01/18/22 mg tablet lorazepam 1 mg tablet (Ativan) 1 mg PO DIRECTED PRN 03/02/19 01/18/22 omega-3s 300 [id number]-other 1,000 mg PO BID 03/02/19 01/18/22 [id number] oil 1,000 mg capsule ([place]-3 Fish Oil) pantoprazole 40 mg tablet,delayed 40 mg PO QAM 03/02/19 01/18/22 release sulindac 150 mg tablet 150 mg PO BID 03/02/19 01/18/22 amiloride 5 mg-hydrochlorothiazide 1 tab PO QAM 01/19/21 01/18/22 50 mg tablet cyanocobalamin (vitamin B-12) 1,000 mcg PO QAM 01/19/21 01/18/22 1,000 mcg tablet multivitamin 1 tab PO QAM 01/19/21 01/18/22 metformin 500 mg tablet 500 mg PO BIDM 01/18/22 01/18/22 Previous Rx's Medication Instructions Recorded oxycodone 5 mg tablet 5 mg PO Q4H PRN #15 tab 01/06/21 Results & Data (ED) Vital Signs Vital Signs - 24 hr 01/18/22 14:26 01/18/22 14:55 01/18/22 17:47 Temperature 36.8 C Temperature Source Temporal Artery Scan Pulse Rate 80 Pulse Rate [Apical] 60 72 Pulse Rhythm [Apical] Regular Regular Respiratory Rate 20 12 15 Respiratory Effort / Characteristics Non-Labored Spontaneous Respiratory Depth Normal Respiratory Pattern Regular Blood Pressure 157/106 H Blood Pressure [Left Arm] 134/86 134/80 Blood Pressure Mean 123 Blood Pressure Mean [Left Arm] 102 98 Blood Pressure Position Sitting Pulse Oximetry 97 92 95 Oxygen Delivery Method Room Air Nasal Cannula Nasal Cannula Oxygen Flow Rate 2 2 Sepsis Recent Fever Within 48 Hours No Sepsis New/Unexplained Change in Mental Status N/A Sepsis Action Taken by Nursing No Action Required 01/18/22 19:08 Temperature Temperature Source Pulse Rate Pulse Rate [Apical] 65 Pulse Rhythm [Apical] Respiratory Rate 14 Respiratory Effort / Characteristics Respiratory Depth Respiratory Pattern Blood Pressure Blood Pressure [Left Arm] 130/88 Blood Pressure Mean Blood Pressure Mean [Left Arm] 102 Blood Pressure Position Pulse Oximetry 96 Oxygen Delivery Method Room Air Oxygen Flow Rate Sepsis Recent Fever Within 48 Hours Sepsis New/Unexplained Change in Mental Status Sepsis Action Taken by Nursing Laboratory Data Result diagrams: 01/18/22 14:55 01/18/22 14:55 Lab Results 01/18/22 01/18/22 01/18/22 Range/Units 14:30 14:52 14:55 WBC (4.8-10.8) K/uL RBC (4.7-6.1) M/uL Hgb (14.0-18.0) g/dL Hct (42-52) % MCV (80-100) fL MCH (25-34) pg MCHC (32-36) g/dL RDW Std Deviation (36.4-46.3) fL RDW Coeff of Osmin (11.5-14.5) % Plt Count (130-400) K/uL MPV (7.4-10.4) fL Immature Gran % (Auto) % Neut % (Auto) % Lymph % (Auto) % [place] % (Auto) % Eos % (Auto) % Baso % (Auto) % Neut # (Auto) (1.4-6.5) K/uL Lymph # (Auto) (1.2-3.4) K/uL [place] # (Auto) (0.11-0.59) K/uL Eos # (Auto) (0-0.5) K/uL Baso # (Auto) (0-0.2) K/uL Immature Gran # (Auto) (0.00-0.02) K/uL PT (9.0-12.0) Seconds INR (0.9-1.1) VBG pH (7.36-7.41) VBG pCO2 (38-50) mmHg VBG pO2 mmHg VBG HCO3 mmol/L VBG O2 Saturation % VBG Base Excess mEq/L Barometric Pressure mm/Hg Sodium (136-145) mmol/L Potassium (3.5-5.1) mmol/L Chloride (98-107) mmol/L Carbon Dioxide (21-32) mmol/L Anion Gap (3-11) BUN (6-23) mg/dl Creatinine (0.6-1.4) mg/dl Est Cr Clr Drug Dosing ml/min Est GFR ( Amer) ml/min Est GFR (Non-Af Amer) ml/min BUN/Creatinine Ratio (10-20) Glucose (70-99(Fasting)) mg/dl POC Glucose 292 H 312 H* (70-99) mg/dl Lactate 1.2 (0.4-2.0) mmol/L Calcium (8.5-10.1) mg/dl Magnesium (1.7-2.4) mg/dl Total Bilirubin (0.2-1.0) mg/dl AST (13-39) U/L ALT (7-52) U/L Alkaline Phosphatase (34-104) U/L Total Creatine Kinase (30-223) U/L Troponin I (0-0.04) ng/ml Total Protein (6.0-8.3) gm/dl Albumin (3.4-5.0) gm/dl Globulin (2.5-4.0) gm/dl Albumin/Globulin Ratio (0.9-2) Lipase (11-82) U/L TSH (0.300-4.500) uIu/ml Urine Color Urine Appearance (Clear) Urine pH (4.5-7.5) Ur Specific [place] (1.000-1.030) Urine Protein (Negative) Urine Glucose (UA) (Negative) Urine Ketones (Negative) Urine Blood (Negative) Urine Nitrite (Negative) Urine Bilirubin (Negative) Urine Urobilinogen (Negative) Ur Leukocyte Esterase (Negative) Urine Opiates Screen (Neg) Ur Methadone, Qual (Neg) Urine Barbiturates (Neg) Ur Phencyclidine (PCP) (Neg) U Amphetamin/Meth Scrn (Neg) MDMA (Ecstasy) Screen (Neg) U Benzodiazepines Scrn (Neg) Ur Cocaine Metabolite (Neg) U Marijuana (THC) Screen (Neg) SARS-CoV-2, RNA, NAAT (NEGATIVE) 01/18/22 01/18/22 01/18/22 Range/Units 14:55 14:55 14:55 WBC 6.97 (4.8-10.8) K/uL RBC 5.05 (4.7-6.1) M/uL Hgb 15.7 (14.0-18.0) g/dL Hct 42.3 (42-52) % MCV 83.8 (80-100) fL MCH 31.1 (25-34) pg MCHC 37.1 H (32-36) g/dL RDW Std Deviation 37.3 (36.4-46.3) fL RDW Coeff of Osmin 12.3 (11.5-14.5) % Plt Count 229 (130-400) K/uL MPV 10.1 (7.4-10.4) fL Immature Gran % (Auto) 0.1 % Neut % (Auto) 63.5 % Lymph % (Auto) 24.1 % [place] % (Auto) 9.8 % Eos % (Auto) 1.9 % Baso % (Auto) 0.6 % Neut # (Auto) 4.43 (1.4-6.5) K/uL Lymph # (Auto) 1.68 (1.2-3.4) K/uL [place] # (Auto) 0.68 H (0.11-0.59) K/uL Eos # (Auto) 0.13 (0-0.5) K/uL Baso # (Auto) 0.04 (0-0.2) K/uL Immature Gran # (Auto) 0.01 (0.00-0.02) K/uL PT 10.4 (9.0-12.0) Seconds INR 1.0 (0.9-1.1) VBG pH (7.36-7.41) VBG pCO2 (38-50) mmHg VBG pO2 mmHg VBG HCO3 mmol/L VBG O2 Saturation % VBG Base Excess mEq/L Barometric Pressure mm/Hg Sodium 132 L (136-145) mmol/L Potassium 3.2 L (3.5-5.1) mmol/L Chloride 94 L (98-107) mmol/L Carbon Dioxide 28 (21-32) mmol/L Anion Gap 10 (3-11) BUN 26 H (6-23) mg/dl Creatinine 0.77 (0.6-1.4) mg/dl Est Cr Clr Drug Dosing 136.8 ml/min Est GFR ( Amer) 122.6 ml/min Est GFR (Non-Af Amer) 105.8 ml/min BUN/Creatinine Ratio 33.8 H (10-20) Glucose 282 H (70-99(Fasting)) mg/dl POC Glucose (70-99) mg/dl Lactate (0.4-2.0) mmol/L Calcium 9.7 (8.5-10.1) mg/dl Magnesium 1.7 (1.7-2.4) mg/dl Total Bilirubin 0.7 (0.2-1.0) mg/dl AST 43 H (13-39) U/L ALT 72 H (7-52) U/L Alkaline Phosphatase 53 (34-104) U/L Total Creatine Kinase 278 H (30-223) U/L Troponin I < 0.03 (0-0.04) ng/ml Total Protein 6.8 (6.0-8.3) gm/dl Albumin 4.3 (3.4-5.0) gm/dl Globulin 2.5 (2.5-4.0) gm/dl Albumin/Globulin Ratio 1.7 (0.9-2) Lipase 44 (11-82) U/L TSH (0.300-4.500) uIu/ml Urine Color Urine Appearance (Clear) Urine pH (4.5-7.5) Ur Specific [place] (1.000-1.030) Urine Protein (Negative) Urine Glucose (UA) (Negative) Urine Ketones (Negative) Urine Blood (Negative) Urine Nitrite (Negative) Urine Bilirubin (Negative) Urine Urobilinogen (Negative) Ur Leukocyte Esterase (Negative) Urine Opiates Screen (Neg) Ur Methadone, Qual (Neg) Urine Barbiturates (Neg) Ur Phencyclidine (PCP) (Neg) U Amphetamin/Meth Scrn (Neg) MDMA (Ecstasy) Screen (Neg) U Benzodiazepines Scrn (Neg) Ur Cocaine Metabolite (Neg) U Marijuana (THC) Screen (Neg) SARS-CoV-2, RNA, NAAT (NEGATIVE) 01/18/22 01/18/22 01/18/22 Range/Units 14:55 14:55 Unknown WBC (4.8-10.8) K/uL RBC (4.7-6.1) M/uL Hgb (14.0-18.0) g/dL Hct (42-52) % MCV (80-100) fL MCH (25-34) pg MCHC (32-36) g/dL RDW Std Deviation (36.4-46.3) fL RDW Coeff of Osmin (11.5-14.5) % Plt Count (130-400) K/uL MPV (7.4-10.4) fL Immature Gran % (Auto) % Neut % (Auto) % Lymph % (Auto) % [place] % (Auto) % Eos % (Auto) % Baso % (Auto) % Neut # (Auto) (1.4-6.5) K/uL Lymph # (Auto) (1.2-3.4) K/uL [place] # (Auto) (0.11-0.59) K/uL Eos # (Auto) (0-0.5) K/uL Baso # (Auto) (0-0.2) K/uL Immature Gran # (Auto) (0.00-0.02) K/uL PT (9.0-12.0) Seconds INR (0.9-1.1) VBG pH 7.42 H (7.36-7.41) VBG pCO2 48 (38-50) mmHg VBG pO2 59 mmHg VBG HCO3 30 mmol/L VBG O2 Saturation 91.2 % VBG Base Excess 4.6 mEq/L Barometric Pressure 735.1 mm/Hg Sodium (136-145) mmol/L Potassium (3.5-5.1) mmol/L Chloride (98-107) mmol/L Carbon Dioxide (21-32) mmol/L Anion Gap (3-11) BUN (6-23) mg/dl Creatinine (0.6-1.4) mg/dl Est Cr Clr Drug Dosing ml/min Est GFR ( Amer) ml/min Est GFR (Non-Af Amer) ml/min BUN/Creatinine Ratio (10-20) Glucose (70-99(Fasting)) mg/dl POC Glucose (70-99) mg/dl Lactate (0.4-2.0) mmol/L Calcium (8.5-10.1) mg/dl Magnesium (1.7-2.4) mg/dl Total Bilirubin (0.2-1.0) mg/dl AST (13-39) U/L ALT (7-52) U/L Alkaline Phosphatase (34-104) U/L Total Creatine Kinase (30-223) U/L Troponin I (0-0.04) ng/ml Total Protein (6.0-8.3) gm/dl Albumin (3.4-5.0) gm/dl Globulin (2.5-4.0) gm/dl Albumin/Globulin Ratio (0.9-2) Lipase (11-82) U/L TSH 2.401 (0.300-4.500) uIu/ml Urine Color Urine Appearance (Clear) Urine pH (4.5-7.5) Ur Specific [place] (1.000-1.030) Urine Protein (Negative) Urine Glucose (UA) (Negative) Urine Ketones (Negative) Urine Blood (Negative) Urine Nitrite (Negative) Urine Bilirubin (Negative) Urine Urobilinogen (Negative) Ur Leukocyte Esterase (Negative) Urine Opiates Screen Pos H (Neg) Ur Methadone, Qual Neg (Neg) Urine Barbiturates Neg (Neg) Ur Phencyclidine (PCP) Neg (Neg) U Amphetamin/Meth Scrn Neg (Neg) MDMA (Ecstasy) Screen Neg (Neg) U Benzodiazepines Scrn Neg (Neg) Ur Cocaine Metabolite Neg (Neg) U Marijuana (THC) Screen Neg (Neg) SARS-CoV-2, RNA, NAAT (NEGATIVE) 01/18/22 01/18/22 Range/Units Unknown Unknown WBC (4.8-10.8) K/uL RBC (4.7-6.1) M/uL Hgb (14.0-18.0) g/dL Hct (42-52) % MCV (80-100) fL MCH (25-34) pg MCHC (32-36) g/dL RDW Std Deviation (36.4-46.3) fL RDW Coeff of Osmin (11.5-14.5) % Plt Count (130-400) K/uL MPV (7.4-10.4) fL Immature Gran % (Auto) % Neut % (Auto) % Lymph % (Auto) % [place] % (Auto) % Eos % (Auto) % Baso % (Auto) % Neut # (Auto) (1.4-6.5) K/uL Lymph # (Auto) (1.2-3.4) K/uL [place] # (Auto) (0.11-0.59) K/uL Eos # (Auto) (0-0.5) K/uL Baso # (Auto) (0-0.2) K/uL Immature Gran # (Auto) (0.00-0.02) K/uL PT (9.0-12.0) Seconds INR (0.9-1.1) VBG pH (7.36-7.41) VBG pCO2 (38-50) mmHg VBG pO2 mmHg VBG HCO3 mmol/L VBG O2 Saturation % VBG Base Excess mEq/L Barometric Pressure mm/Hg Sodium (136-145) mmol/L Potassium (3.5-5.1) mmol/L Chloride (98-107) mmol/L Carbon Dioxide (21-32) mmol/L Anion Gap (3-11) BUN (6-23) mg/dl Creatinine (0.6-1.4) mg/dl Est Cr Clr Drug Dosing ml/min Est GFR ( Amer) ml/min Est GFR (Non-Af Amer) ml/min BUN/Creatinine Ratio (10-20) Glucose (70-99(Fasting)) mg/dl POC Glucose (70-99) mg/dl Lactate (0.4-2.0) mmol/L Calcium (8.5-10.1) mg/dl Magnesium (1.7-2.4) mg/dl Total Bilirubin (0.2-1.0) mg/dl AST (13-39) U/L ALT (7-52) U/L Alkaline Phosphatase (34-104) U/L Total Creatine Kinase (30-223) U/L Troponin I (0-0.04) ng/ml Total Protein (6.0-8.3) gm/dl Albumin (3.4-5.0) gm/dl Globulin (2.5-4.0) gm/dl Albumin/Globulin Ratio (0.9-2) Lipase (11-82) U/L TSH (0.300-4.500) uIu/ml Urine Color Dark Yellow Urine Appearance Clear (Clear) Urine pH 5.5 (4.5-7.5) Ur Specific [place] > 1.045 H (1.000-1.030) Urine Protein Negative (Negative) Urine Glucose (UA) 3+ H (Negative) Urine Ketones Negative (Negative) Urine Blood Negative (Negative) Urine Nitrite Negative (Negative) Urine Bilirubin Negative (Negative) Urine Urobilinogen Negative (Negative) Ur Leukocyte Esterase Negative (Negative) Urine Opiates Screen (Neg) Ur Methadone, Qual (Neg) Urine Barbiturates (Neg) Ur Phencyclidine (PCP) (Neg) U Amphetamin/Meth Scrn (Neg) MDMA (Ecstasy) Screen (Neg) U Benzodiazepines Scrn (Neg) Ur Cocaine Metabolite (Neg) U Marijuana (THC) Screen (Neg) SARS-CoV-2, RNA, NAAT NEGATIVE (NEGATIVE) Administered Medications Potassium Chloride (K Vipin / Wtr) 10 meq in 100 mls @ 100 mls/hr IV Q1H DENIS; Protocol Stop: 01/18/22 21:44 Last Admin: 01/18/22 19:08 Dose: 100 mls/hr Documented by: [id number] Infusion: 01/18/22 19:05 Dose: 100 mls/hr Documented by: [id number] Admin: 01/18/22 18:05 Dose: 100 mls/hr Documented by: [id number] Discontinued Medications Sodium Chloride (Nss 1000ml) 1,000 mls @ 999 mls/hr IV .Q1H1M DENIS Stop: 01/18/22 15:45 Last Infusion: 01/18/22 17:48 Dose: 0 mls/hr Documented by: [id number] Admin: 01/18/22 14:54 Dose: 999 mls/hr Documented by: [id number] Insulin Human Regular (Novolin-R Insulin Per Unit Charge) 5 units IV NOW STA Stop: 01/18/22 15:52 Last Admin: 01/18/22 16:30 Dose: 5 units Documented by: [id number] Cosigned by: [id number] Naloxone HCl (Naloxone Hcl 0.4 Mg/1 Ml Vial/Carp) 0.4 mg IV NOW STA Stop: 01/18/22 16:09 Last Admin: 01/18/22 16:30 Dose: 0.4 mg Documented by: [id number] Imaging Data Radiologist's Impression: Chest X-Ray 01/18/22 14:45 XR chest 1V portable CLINICAL HISTORY: weakness COMPARISON STUDY: Chest radiograph March 06, 2021. FINDINGS: Lung volumes are mildly diminished. Bibasilar opacities are present. Cardiomediastinal silhouette is stable. There is no evidence for pulmonary edema. No pneumothorax or pleural effusion is present. IMPRESSION: Low lung volumes. Bibasilar opacities favor atelectasis although an infectious process could appear similar. Radiographic follow-up is recommended. ACT 112: Negative or not required by law. Electronically signed by: Henry Sun M.D. 01/18/2022 3:[address] 01/18/22 14:45 CT SCAN OF THE BRAIN WITHOUT IV CONTRAST CLINICAL HISTORY: Fatigue. COMPARISON STUDY: No priors TECHNIQUE: Unenhanced axial CT scan of the brain is performed from the vertex to the skull base. A dose lowering technique was utilized adhering to the principles of ALARA. CT DOSE: 614.27 mGy.cm FINDINGS: Brain parenchyma: The brain parenchyma is normal in appearance. There is no hemorrhage, mass effect, or evidence of acute territorial ischemia by CT criteria. Quinonez-white matter differentiation is preserved. No extra-axial fluid collection is seen. Ventricles, sulci, cisterns: Normal in configuration. Intracranial vasculature: The visualized intracranial vasculature at the skull base is normal in appearance. Calvarium: Unremarkable. Sinuses and mastoids: There is mild mucosal thickening in the right maxillary antrum. The remaining visualized paranasal sinuses are clear. The mastoid air cells are well pneumatized. Orbits: The bony orbits are grossly intact. IMPRESSION: No acute intracranial abnormality. ACT 112: Negative or not required by law. Electronically signed by: Db Evangelista M.D. 01/18/2022 3:28 PM Discharge Plan Visit Data Chief Complaint: Vomiting Stated Complaint: VOMITING, CAN'T STAY AWAKE ED Provider: Darek Argueta Discharge Problem: Nausea & vomiting, Somnolence, Hypoxia, Hyperglycemia due to type 2 diabetes mellitus Patient Disposition: Being Evaluated by Hospitalist Forms Stand Alone Forms: [facility] Prescriptions Prescriptions: No Action hydrocodone-acetaminophen 5-325 mg Tablet 1 tab PO BID PRN (Reason: mild pain) RF: 0 sulindac 150 mg Tablet 150 mg PO BID RF: 0 lorazepam [Ativan] 1 mg Tablet 1 mg PO DIRECTED PRN (Reason: Anxiety) RF: 0 gemfibrozil [Lopid] 600 mg Tablet 600 mg PO BID RF: 0 pantoprazole 40 mg Tablet,Delayed Release (Dr/Ec) 40 mg PO QAM RF: 0 [place]-3 Fish Oil 300-1,000 mg Capsule 1,000 mg PO BID RF: 0 multivitamin Tablet 1 tab PO QAM RF: 0 amiloride-hydrochlorothiazide 5-50 mg Tablet 1 tab PO QAM RF: 0 cyanocobalamin (vitamin B-12) 1,000 mcg Tablet 1,000 mcg PO QAM RF: 0 metformin 500 mg tablet 500 mg PO BIDM RF: 0 Referrals Referrals: Heather Calvillo DO [Primary Care Provider] - Discharge Problem: Nausea & vomiting Qualifiers: Vomiting type: unspecified Qualified Code(s): R11.2 - Nausea with vomiting, unspecified
[2022-01-18 15:10] LABS: Basophils # (auto) 0.04 K/uL (0-0.2); Basophils % (auto) 0.6 %; Eosinophils # (auto) 0.13 K/uL (0-0.5); Eosinophils % (auto) 1.9 %; Hematocrit (blood only) 42.3 % (42-52); Hemoglobin 15.7 g/dL (14.0-18.0); Immature Granulocytes # (auto) 0.01 K/uL (0.00-0.02); Immature Granulocytes % (auto) 0.1 %; Lymphocytes # (auto) 1.68 K/uL (1.2-3.4); Lymphocytes % (auto) 24.1 %; Mean Corpuscular Hemoglobin 31.1 pg (25-34); Mean Corpuscular Hgb Conc 37.1 g/dL (32-36); Mean Corpuscular Volume 83.8 fL (80-100); Mean Platelet Volume 10.1 fL (7.4-10.4); Monocytes # (auto) 0.68 K/uL (0.11-0.59); Monocytes % (auto) 9.8 %; Neutrophils # (auto) 4.43 K/uL (1.4-6.5); Neutrophils % (auto) 63.5 %; Platelet Count 229 K/uL (130-400); RDW Coefficient of Variation 12.3 % (11.5-14.5); RDW Standard Deviation 37.3 fL (36.4-46.3); Red Blood Count 5.05 M/uL (4.7-6.1); White Blood Count 6.97 K/uL (4.8-10.8)
[2022-01-18 15:23] LABS: Base Excess VBG 4.6 mEq/L; Oxygen Saturation VBG 91.2 %; pH VBG 7.42 (7.36-7.41)
--- NOTE | 2022-01-18 15:31 | CT Scan Report ---
CT SCAN OF THE BRAIN WITHOUT IV CONTRAST CLINICAL HISTORY: Fatigue. COMPARISON STUDY: No priors TECHNIQUE: Unenhanced axial CT scan of the brain is performed from the vertex to the skull base. A d ose lowering technique was utilized adhering to the principles of ALARA. CT DOSE: 614.27 mGy.cm FINDINGS: Brain parenchyma: The brain parenchyma is normal in appearance. There is no hemorrhage, mass effect, or evidence of acute territorial ischemia by CT criteria. Quinonez-white matter differentiation is preser tawanna. No extra-axial fluid collection is seen. Ventricles, sulci, cisterns: Normal in configuration. Intracranial vasculature: The visualized intracranial vasculature at the skull base is normal in appe arance. Calvarium: Unremarkable. Sinuses and mastoids: There is mild mucosal thickening in the right maxillary antrum. The remaining v isualized paranasal sinuses are clear. The mastoid air cells are well pneumatized. Orbits: The bony orbits are grossly intact. IMPRESSION: No acute intracranial abnormality. ACT 112: Negative or not required by law. Electronically signed by: Db Evangelista M.D. 01/18/2022 3:28 PM
[2022-01-18 15:34] LABS: Prothrombin Time 10.4 Seconds (9.0-12.0)
[2022-01-18 15:37] LABS: Troponin I < 0.03 ng/ml (0-0.04)
[2022-01-18 15:42] LABS: Alanine Aminotransferase 72 U/L (7-52); Albumin Globulin Ratio 1.7 (0.9-2); Albumin Level 4.3 gm/dl (3.4-5.0); Alkaline Phosphatase 53 U/L (34-104); Anion Gap 10 (3-11); Aspartate Aminotransferase 43 U/L (13-39); BUN Creatinine Ratio 33.8 (10-20); Bilirubin,Total 0.7 mg/dl (0.2-1.0); Blood Urea Nitrogen 26 mg/dl (6-23); Calcium 9.7 mg/dl (8.5-10.1); Carbon Dioxide 28 mmol/L (21-32); Chloride 94 mmol/L (98-107); Creatine Kinase 278 U/L (30-223); Creatinine Clr Calc Pharmacy 136.8 ml/min; Est GFR (African American) 122.6 ml/min; Est GFR (Non-African American) 105.8 ml/min; Globulin 2.5 gm/dl (2.5-4.0); Glucose 282 mg/dl (70-99(Fasting)); Lipase 44 U/L (11-82); Magnesium 1.7 mg/dl (1.7-2.4); Potassium 3.2 mmol/L (3.5-5.1); Sodium 132 mmol/L (136-145); Total Protein 6.8 gm/dl (6.0-8.3)
[2022-01-18] MEDS ORDERED: NovoLIN-R INSULIN PER UNIT CHARGE IV STA (15:51)
--- NOTE | 2022-01-18 16:00 | XRay Report ---
XR chest 1V portable CLINICAL HISTORY: weakness COMPARISON STUDY: Chest radiograph March 06, 2021. FINDINGS: Lung volumes are mildly diminished. Bibasilar opacities are present. Cardiomediastinal silh ouette is stable. There is no evidence for pulmonary edema. No pneumothorax or pleural effusion is pr esent. IMPRESSION: Low lung volumes. Bibasilar opacities favor atelectasis although an infectious process c ould appear similar. Radiographic follow-up is recommended. ACT 112: Negative or not required by law. Electronically signed by: Henyr Sun M.D. 01/18/2022 3:58 PM
[2022-01-18] MEDS ORDERED: NALOXONE HCL 0.4 MG/1 ML VIAL/CARP IV STA (16:08)
[2022-01-18 17:45] LABS: Appearance Urine Clear (Clear); Bilirubin Urine Negative (Negative); Blood Urine Negative (Negative); Color Urine Dark Yellow; Glucose Urine UA 3+ (Negative); Ketones Urine Negative (Negative); Leukocyte Esterase Urine Negative (Negative); Nitrite Urine Negative (Negative); Protein Urine Negative (Negative); Specific Gravity Urine > 1.045 (1.000-1.030); Urobilinogen Urine Negative (Negative); pH Urine 5.5 (4.5-7.5)
[2022-01-18] MEDS: POTASSIUM CHLORIDE / WTR 10 MEQ/100 ML PLCT IV SCH ×2 (18:05→19:08)
[2022-01-18 18:14] LABS: Amphetamines+Metham, Urine Neg (Neg); Barbiturates, Urine Neg (Neg); Benzodiazepine, Urine Neg (Neg); Cocaine, Urine Neg (Neg); MDMA (Ecstacy), Urine Neg (Neg); Methadone, Urine Neg (Neg); Opiate, Urine Pos (Neg); Phencyclidine, Urine Neg (Neg)
--- NOTE | 2022-01-18 20:04 | History & Physical Report ---
Date of Service January 18, 2022 Assessment & Plan (1) Altered mental status: Plan: Admit to telemetry Patient presenting with lethargy and a few episodes of vomiting. Etiology is somewhat unclear Patient is prescribed Vicodin and lorazepam. States that he only took 1 Vicodin tablet late this morning, patient seems to be reliable historian. Denies taking any lorazepam and UDS supports that. 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, no longer on antiepileptics Brain MRI, EEG Neurology consult (2) Hyperglycemia due to type 2 diabetes mellitus: Plan: Recently diagnosed with diabetes after outpatient labs showed glucose over 300, however no A1c documented Patient started on Metformin Glucose 312 today on presentation, no signs of DKA Hold Metformin, utilize NovoLog and Lantus per protocol while hospitalized Glycemic pharmacy consult Check A1c (3) Hypoxia: Plan: Patient noted to be hypoxic at 87% on room air, improved to 2 L of oxygen via nasal cannula Likely due to underlying JOHNNIE and somnolence CXR showing atelectasis (4) Hypokalemia: Plan: K+ 3.2, MG +1.7 Replace, follow electrolytes (5) HLD (hyperlipidemia): Plan: Continue gemfibrozil (6) Sleep apnea: Plan: CPAP as per home settings (7) Kidney stones: Plan: History of, will hold amiloride/HCTZ for now (8) DVT prophylaxis: Plan: SCDs History of Present Illness Chief Complaint: Altered mental status Primary Care Provider: Heather Calvillo, 52-year-old male with PMH dyslipidemia, DM type II, JOHNNIE on CPAP, history of bladder cancer s/p resection, renal calculi, and other problems listed below who presents the ED for evaluation of altered mental status. Patient's is at the bedside who provides some history. This morning, patient's states that he was in his usual state of health prior to going to work. Around lunchtime, patient became very lethargic and was having difficulty staying awake. He had something to eat and then had a few episodes of vomiting after. Patient was brought to the ED for further evaluation. There was no loss of consciousness, seizure-like activity, loss of bowel or bladder dysfunction noted. Patient is prescribed lorazepam and Vicodin. Patient states that he took 1 Vicodin late this morning. He has not taken any lorazepam recently. According to patient's , patient has been in his usual state of health. No other symptoms reported. In the ED, patient is hemodynamically stable. Labs are essentially unremarkable with the exception of hyperglycemia glucose 312. No signs of DKA. Patient was given Narcan without any change in mental status. Patient was given IV insulin 5 units, IVF. Head CT unremarkable for acute findings. Allergies Allergy/AdvReac Type Severity Reaction Status Date / Time No Known Allergies Allergy Mild NONE Verified 01/18/22 15:07 Home Medications Medication Instructions Recorded Confirmed Type gemfibrozil 600 mg tablet (Lopid) 600 mg PO BID 03/02/19 01/18/22 History hydrocodone 5 mg-acetaminophen 325 1 tab PO BID PRN 03/02/19 01/18/22 History mg tablet lorazepam 1 mg tablet (Ativan) 1 mg PO DIRECTED PRN 03/02/19 01/18/22 History omega-3s 300 nj-zmw-lai-other 1,000 mg PO BID 03/02/19 01/18/22 History [id number] oil 1,000 mg capsule ([place]-3 Fish Oil) pantoprazole 40 mg tablet,delayed 40 mg PO QAM 03/02/19 01/18/22 History release sulindac 150 mg tablet 150 mg PO BID 03/02/19 01/18/22 History oxycodone 5 mg tablet 5 mg PO Q4H PRN #15 tab 01/06/21 03/04/21 Rx amiloride 5 mg-hydrochlorothiazide 1 tab PO QAM 01/19/21 01/18/22 History 50 mg tablet cyanocobalamin (vitamin B-12) 1,000 mcg PO QAM 01/19/21 01/18/22 History 1,000 mcg tablet multivitamin 1 tab PO QAM 01/19/21 01/18/22 History metformin 500 mg tablet 500 mg PO BIDM 01/18/22 01/18/22 History Past Med/Surg History Medical History (Updated 01/18/22 @ 19:56 by DAVID Busby) Anxiety Arthritis Elevated triglycerides with high cholesterol GERD (gastroesophageal reflux disease) controlled History of kidney stones History of seizure Seizure onset at age 11 (after tree falling on head) > most recent seizure 12+ years ago, controlled off anticonvulsants HLD (hyperlipidemia) Hx of bladder cancer no chemo or xrt, under surveillance by urology (Dr. Beckett; [facility]) Obesity Sleep apnea CPAP Surgical History History of arthroscopic knee surgery Left History of cystoscopy History of esophagogastroduodenoscopy (EGD) History of incision and drainage Left Elbow Wound Incision and Drainage (02/12/21): LMA#5 at [facility] Hx of cholecystectomy Hx of LASIK Family History Mother Family history of diabetes mellitus Other No family history of adverse response to anesthesia Social History Smoking Status: Never smoker Second Hand Exposure: No; Hx Alcohol Use: Yes Alcohol type: hard liquor Hx Substance Use: No Preferred Language: Jordanian Communication Ability: Effective 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 Mckeon's addendum for physical exam Results & Data Results & Data ([facility]) Vital Signs (Past 12 Hours) Vital Signs Temp Pulse Pulse Resp BP BP Pulse Ox 01/18/22 19:08 65 14 130/88 96 01/18/22 17:47 72 15 134/80 95 01/18/22 14:55 60 12 134/86 92 01/18/22 14:26 36.8 C 80 20 157/106 H 97 Laboratory Results Short CBC 01/18/22 01/18/22 01/18/22 Range/Units 14:30 14:52 14:55 WBC 6.97 (4.8-10.8) K/uL Hgb 15.7 (14.0-18.0) g/dL Hct 42.3 (42-52) % Plt Count 229 (130-400) K/uL Glucose (70-99(Fasting)) mg/dl POC Glucose 292 H 312 H* (70-99) mg/dl 01/18/22 01/18/22 Range/Units 14:55 19:14 WBC (4.8-10.8) K/uL Hgb (14.0-18.0) g/dL Hct (42-52) % Plt Count (130-400) K/uL Glucose 282 H (70-99(Fasting)) mg/dl POC Glucose 234 H (70-99) mg/dl BMP 01/18/22 14:55 Sodium 132 L Potassium 3.2 L Chloride 94 L Carbon Dioxide 28 BUN 26 H Creatinine 0.77 Glucose 282 H Calcium 9.7 Cardiac Enzymes 01/18/22 Range/Units 14:55 Total Creatine Kinase 278 H (30-223) U/L Troponin I < 0.03 (0-0.04) ng/ml Liver Function 01/18/22 Range/Units 14:55 Total Bilirubin 0.7 (0.2-1.0) mg/dl AST 43 H (13-39) U/L ALT 72 H (7-52) U/L Alkaline Phosphatase 53 (34-104) U/L Albumin 4.3 (3.4-5.0) gm/dl Urine 01/18/22 Range/Units Unknown Urine Color Dark Yellow Urine Appearance Clear (Clear) Urine pH 5.5 (4.5-7.5) Ur Specific [place] > 1.045 H (1.000-1.030) Urine Protein Negative (Negative) Urine Glucose (UA) 3+ H (Negative) Diagnostic Findings Chest X-Ray 01/18/22 14:45 XR chest 1V portable CLINICAL HISTORY: weakness COMPARISON STUDY: Chest radiograph March 06, 2021. FINDINGS: Lung volumes are mildly diminished. Bibasilar opacities are present. Cardiomediastinal silhouette is stable. There is no evidence for pulmonary edema. No pneumothorax or pleural effusion is present. IMPRESSION: Low lung volumes. Bibasilar opacities favor atelectasis although an infectious process could appear similar. Radiographic follow-up is recommended. ACT 112: Negative or not required by law. Electronically signed by: Henry Sun M.D. 01/18/2022 3:[address] 01/18/22 14:45 CT SCAN OF THE BRAIN WITHOUT IV CONTRAST CLINICAL HISTORY: Fatigue. COMPARISON STUDY: No priors TECHNIQUE: Unenhanced axial CT scan of the brain is performed from the vertex to the skull base. A dose lowering technique was utilized adhering to the principl es of ALARA. CT DOSE: 614.27 mGy.cm FINDINGS: Brain parenchyma: The brain parenchyma is normal in appearance. There is no hemorrhage, mass effect, or evidence of acute territorial ischemia by CT criteria. Quinonez-white matter differentiation is preserved. No extra-axial fluid collection is seen. Ventricles, sulci, cisterns: Normal in configuration. Intracranial vasculature: The visualized intracranial vasculature at the skull base is normal in appearance. Calvarium: Unremarkable. Sinuses and mastoids: There is mild mucosal thickening in the right maxillary antrum. The remaining visualized paranasal sinuses are clear. The mastoid air cells are well pneumatized. Orbits: The bony orbits are grossly intact. IMPRESSION: No acute intracranial abnormality. ACT 112: Negative or not required by law. Electronically signed by: Db Evangelista M.D. 01/18/2022 3:28 PM Code Status & VTE Plan Code Status Patient is a full code. VTE Prophylaxis Plan VTE Prophylaxis will be ordered: Yes Supervising Physician Co-Signing Physician Notes Pt is a 52 y/o M with hx of bladder ca s/p resection, JOHNNIE on CPAP, DMII, HTN, HLD, seizure after head trauma (was on medication in the past), GERD, nephrolithiasis, DJD (on hydrocodone), anxiety (on prn Ativan) admitted for episode of drowsiness and vomiting. PE: Drowsy, obese pt HEENT: EOMI, PERRLA, atraumatic Lungs: CTA, no wheezing, or crackles Card: normal S1/S2, no murmur Abd: obese abd, ND, NT, soft MSK: trace pitting edema of LE Neuro: CN II-XII intact, normal motor strength Psych: drowsy, AAOx3 A/P: Drowsiness with episode of vomiting: -could be 2/2 seizure, TIA, hydrocodone use vs drug use - VSS and CT head: no acute finding -will get MRI brain, and EEG - neurology consult - UDS pending - NPO until improvement - q2hr neuro check DMII: -pts glucose is elevated in the ER -will do ISS and hold metformin DJD and anxiety: -hold hydrocodone and Ativan Agree with A/P by DAVID Busby
[2022-01-18] MEDS ORDERED: ACETAMINOPHEN 325 MG TAB PO PRN (21:06)
[2022-01-18] MEDS ORDERED: PHARMACY GLYCEMIC MGMT CONSULT PRN (21:06)
[2022-01-18] MEDS ORDERED: GLUCOSE 10 TABS/TUBE PO PRN (21:45)
[2022-01-18] MEDS ORDERED: CARBOHYDRATES FOR HYPOGLYCEMIA PO PRN (21:45)
[2022-01-18] MEDS ORDERED: GLUCAGON FOR INJ 1 MG VIAL IM PRN (21:45)
[2022-01-18] MEDS ORDERED: DEXTROSE 50% 50 ML SYRINGE IV PRN (21:45)
[2022-01-18] MEDS ORDERED: GLUCOSE 40% GEL 15 GM TUBE PO PRN (21:45)
[2022-01-18] MEDS ORDERED: INSULIN GLARGINE SOLOSTAR 100 UNITS/ML 3 ML PEN SC ONE (22:00)
[2022-01-18] MEDS: PROMETHAZINE HCL 12.5 MG in SODIUM CHLORIDE 0.9% 50 ML IV PRN (22:45)
[2022-01-18] MEDS: SODIUM CHLORIDE 0.9% 1000ML 1,000 ML IV SCH (22:46)
[2022-01-18] MEDS: gemfibroziL 600 MG TAB PO SCH (23:06)
[2022-01-18] MEDS: INSULIN ASPART PER UNIT SC SCH (23:07)
[2022-01-19] MEDS: POTASSIUM CHLORIDE / WTR 10 MEQ/100 ML PLCT IV SCH ×2 (00:19→01:22)
[2022-01-19] MEDS: INSULIN ASPART PER UNIT SC SCH ×6 (00:48→20:59)
[2022-01-19] MEDS ORDERED: Flu Vaccine (Fluarix) 0.5mL SYR (Standard Dose) IM ONE (05:30)
[2022-01-19] MEDS ORDERED: GADOBUTROL 65ML VIAL IV ONE (06:12)
--- NOTE | 2022-01-19 06:59 | Magnetic Resonance Report ---
MRI OF THE BRAIN COMBO CLINICAL HISTORY: Change in mental status. COMPARISON STUDY: CT of the brain dated 01/18/2022. TECHNIQUE: MRI of the brain was performed utilizing various T1 and T2-weighted sequences in the axial , sagittal, and coronal planes. Contrast-enhanced sequences were acquired following the administratio n of 12 cc of Gadavist. The examination is modestly degraded by motion artifact. FINDINGS: Brain parenchyma: The brain parenchyma is normal in appearance. There is no hemorrhage or mass effect . There is no restricted diffusion to suggest acute ischemia. No enhancing mass lesion is identified on the postcontrast images. Quinonez-white matter differentiation is preserved. No extra-axial fluid thang ection is seen. The cerebellar tonsils are normal in configuration. Ventricles, sulci, and cisterns: Normal in configuration. Pituitary and sella: Unremarkable. Intracranial vasculature: Normal flow voids are maintained at the skull base. Orbits: The bony orbits are grossly intact. Orbital contents are normal in appearance. Sinuses and mastoids: There is mild mucosal thickening in the right maxillary antrum. The remaining p aranasal sinuses are clear. The mastoid air cells are well pneumatized. Calvarium: Unremarkable. Cervical cord: Partially visualized cervical spinal cord is normal in morphology and signal intensity . IMPRESSION: No acute intracranial abnormality. ACT 112: Negative or not required by law. Electronically signed by: Db Evangelista M.D. 01/19/2022 6:58 AM
[2022-01-19 07:13] LABS: Estimated Average Glucose 283 mg/dl; Hemoglobin A1C 11.5 % (4.5-5.6)
[2022-01-19] MEDS: PANTOprazole 40 MG TAB PO SCH (07:56)
[2022-01-19] MEDS: gemfibroziL 600 MG TAB PO SCH ×2 (07:56→21:07)
[2022-01-19 08:08] LABS: Hematocrit (blood only) 40.6 % (42-52); Hemoglobin 14.4 g/dL (14.0-18.0); Mean Corpuscular Hemoglobin 30.4 pg (25-34); Mean Corpuscular Hgb Conc 35.5 g/dL (32-36); Mean Corpuscular Volume 85.8 fL (80-100); Mean Platelet Volume 10.1 fL (7.4-10.4); Platelet Count 215 K/uL (130-400); RDW Coefficient of Variation 12.3 % (11.5-14.5); RDW Standard Deviation 38.9 fL (36.4-46.3); Red Blood Count 4.73 M/uL (4.7-6.1); White Blood Count 5.74 K/uL (4.8-10.8)
[2022-01-19] MEDS ORDERED: INSULIN GLARGINE SOLOSTAR 100 UNITS/ML 3 ML PEN SC ONE ×2 (08:30→08:45)
[2022-01-19 08:31] LABS: BUN Creatinine Ratio 22.4 (10-20); Calcium 8.9 mg/dl (8.5-10.1); Creatinine Clr Calc Pharmacy 175.6 ml/min; Est GFR (African American) 129.9 ml/min; Potassium 3.7 mmol/L (3.5-5.1)
--- NOTE | 2022-01-19 10:48 | Pharmacy Report ---
Pharmacy Glycemic Short Note 2 - Date of Service January 19, 2022 - Glycemic Short BSG Results (Last 24 hours): 01/18/22 01/18/22 01/18/22 14:30 14:52 14:55 Glucose 282 H POC Glucose 292 H 312 H* 01/18/22 01/18/22 01/19/22 19:14 21:44 00:37 Glucose POC Glucose 234 H 242 H 286 H 01/19/22 01/19/22 01/19/22 04:36 07:40 07:54 Glucose 195 H POC Glucose 221 H 197 H OUTPATIENT ANTIDIABETIC REGIMEN: * Metformin 500 mg po BIDM * HbA1c 11.5% on 01/18/22 ASSESSMENT: * 52 yo M with poorly controlled T2DM on metformin monotherapy admitted with AMS and found to have significant hyperglycemia. BSG's have gradually trended down but were still significantly elevated at 197 mg/dL this AM * Lantus initiated last night - not yet near steady state. Will continue with BID dosing today * Novolog at weight-based moderate stress estimate, which is reasonable given current stressors PLAN FOR INPATIENT GLYCEMIC CONTROL: * Hold outpatient oral diabetes medications * Basal insulin * Lantus 20 units SQ x1 with additional 0-20 units tonight based on BSG * Bolus insulin * NovoLog per scale ACHS or Q6hrs while NPO * Goal Range: Low 110 mg/dL - High 140 mg/dL * Correction Factor: 20 mg/dL/unit * Nutritional / Prandial insulin per carb ratio of 1 unit per 6 grams CHO consumed
[2022-01-19] MEDS: SODIUM CHLORIDE 0.9% 1000ML 1,000 ML IV SCH (11:22)
--- NOTE | 2022-01-19 14:31 | Neurology Consultation ---
Date of Consultation January 19, 2022 Assessment & Plan (1) Altered mental status: 1. EEG no seizure focus 2. MRI brain- no acute findings 3. optimize DM and correct lytes 4. follow up with PCP for further management ok to discharge from neurology stand point follow up with PCP (2) Nausea & vomiting: Supervising Physician Co-Signing Physician Notes Patient was seen and examined. Admitted with altered mental status yesterday in the setting of hyperglycemia. EEG showed mild generalized slowing although patient was drowsy and may improve if more alert. MRI Negative. Mentation has improved. no focal findings. Some mild lethargy. Agree with continued conservative observation. Unclear etiology brief period of encephalopathy. DDx includes a viral encephalitis although seems unlikely. No additional Neuro recomemndations for now. Follow up with Neuro PRN. History of Present Illness Reason for Consultation: [facility] Requesting Physician: Nabila Del Rosario MD Attending Physician: Nabila Del Rosario MD History of Present Illness Arturo is a 52 year old male with PMH-HLD, DM type II, JOHNNIE on CPAP, history of bladder cancer s/p resection, renal calculi who presented to [facility] 01/18/2022 ED for evaluation of altered mental status.he was in his usual state of health prior to going to work 01/18/22. Around lunchtime, he became very lethargic and was having difficulty staying awake. He had something to eat and then had a few episodes of vomiting after.He was brought to the ED for further evaluation. There was no loss of consciousness, seizure-like activity, loss of bowel or bladder dysfunction noted. He is prescribed lorazepam and Vicodin. He took 1 Vicodin late this morning. He has not taken any lorazepam recently. In the ED, patient is hemodynamically stable.He was given Narcan without any change in mental status. He is still lethargic but not confused. is bedside and thinks this may be an issues with his DM and low potassium. denies CP, SOB, abdominal pain, one sided weakness, numbness tingling, vision changes. He does have a remote history of seizure but has not been on seizure medications since 1993. Allergies Allergy/AdvReac Type Severity Reaction Status Date / Time No Known Allergies Allergy Mild NONE Verified 01/18/22 15:07 Home Medications Medication Instructions Recorded Confirmed Type gemfibrozil 600 mg tablet (Lopid) 600 mg PO BID 03/02/19 01/18/22 History hydrocodone 5 mg-acetaminophen 325 1 tab PO BID PRN 03/02/19 01/18/22 History mg tablet lorazepam 1 mg tablet (Ativan) 1 mg PO DIRECTED PRN 03/02/19 01/18/22 History omega-3s 300 nn-myc-rbh-other 1,000 mg PO BID 03/02/19 01/18/22 History [id number] oil 1,000 mg capsule ([place]-3 Fish Oil) pantoprazole 40 mg tablet,delayed 40 mg PO QAM 03/02/19 01/18/22 History release sulindac 150 mg tablet 150 mg PO BID 03/02/19 01/18/22 History oxycodone 5 mg tablet 5 mg PO Q4H PRN #15 tab 01/06/21 03/04/21 Rx amiloride 5 mg-hydrochlorothiazide 1 tab PO QAM 01/19/21 01/18/22 History 50 mg tablet cyanocobalamin (vitamin B-12) 1,000 mcg PO QAM 01/19/21 01/18/22 History 1,000 mcg tablet multivitamin 1 tab PO QAM 01/19/21 01/18/22 History metformin 500 mg tablet 500 mg PO BIDM 01/18/22 01/18/22 History Patient History Medical History (Updated 01/18/22 @ 19:56 by DAVID Busby) Anxiety Arthritis Elevated triglycerides with high cholesterol GERD (gastroesophageal reflux disease) controlled History of kidney stones History of seizure Seizure onset at age 11 (after tree falling on head) > most recent seizure 12+ years ago, controlled off anticonvulsants HLD (hyperlipidemia) Hx of bladder cancer no chemo or xrt, under surveillance by urology (Dr. Beckett; [facility]) Obesity Sleep apnea CPAP Surgical History History of arthroscopic knee surgery Left History of cystoscopy History of esophagogastroduodenoscopy (EGD) History of incision and drainage Left Elbow Wound Incision and Drainage (02/12/21): LMA#5 at [facility] Hx of cholecystectomy Hx of LASIK Family History Mother Family history of diabetes mellitus Other No family history of adverse response to anesthesia Social History Smoking Status: Never smoker Second Hand Exposure: No; Hx Alcohol Use: Yes Alcohol type: hard liquor Hx Substance Use: No Preferred Language: Nauruan Communication Ability: Effective 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 Required: No Beliefs That Will Affect Care: None marital status: Current Living Situation: Spouse current occupational status: employed How many Children do You have: 3 Other Information That Helps Us Care for You: No Feels Safe at Home: Yes Safety Concerns: Feels Safe At This Time Assistive Devices: CPAP Review of Systems Review of Systems: All systems reviewed & are unremarkable except as noted in HPI & below Physical Exam Physical Exam: Physical Exam: Constitutional: appearance over nourished, healthy and lethargic Ears, Nose, Mouth and Throat: mucous membranes moist, no injection and skin normal, eyes normal Cardiovascular: normal S-1 and S-2 and regular rate and rhythm Respiratory: clear to auscultation (CTA) and no rales, rhonchi or wheeze Musculoskeletal: no peripheral edema and good distal pulses Skin: no stigmata of neurocutaneous disease noted and normal and intact Eyes: extraocular muscles intact (EOMI) and pupils equal, round and reactive to light (PERRL) NEUROLOGIC EXAMINATION: Mental status: Alert and interactive Oriented January, president Z[place], [facility] Oriented to person Speech fluent with no evidence of aphasia Cranial Nerves smile eye brow raise symmetric Reflexes: Deep tendon reflexes were symmetrical and graded 2/5. Sensory: light and cool touch intact Coordination: finger to nose, heel to chavis Gait/Stance: Posture normal. Motor: Negative for pronator drift of out stretched arms with eyes closed. 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 triceps right 5/5 left 4+/5 hip flex 5/5 Results & Data ([facility]) Vital Signs (Past 12 Hours) Vital Signs Temp Pulse Pulse Resp BP Pulse Ox Pulse Ox 01/19/22 11:50 36.4 C L 63 20 145/91 H 96 01/19/22 09:37 94 01/19/22 08:00 36.4 C L 61 18 135/87 94 01/19/22 06:45 15 95 01/19/22 04:05 94 01/19/22 03:27 36.4 C L 52 L 14 128/85 97 01/19/22 03:09 56 L 10 L 95 Laboratory Results Abnormal lab results 01/18/22 01/18/22 01/18/22 Range/Units 14:30 14:52 14:55 Hct (42-52) % MCHC 37.1 H (32-36) g/dL [place] # (Auto) 0.68 H (0.11-0.59) K/uL VBG pH (7.36-7.41) Sodium (136-145) mmol/L Potassium (3.5-5.1) mmol/L Chloride (98-107) mmol/L BUN (6-23) mg/dl BUN/Creatinine Ratio (10-20) Glucose (70-99(Fasting)) mg/dl POC Glucose 292 H 312 H* (70-99) mg/dl Hemoglobin A1c (4.5-5.6) % AST (13-39) U/L ALT (7-52) U/L Total Creatine Kinase (30-223) U/L Ur Specific [place] (1.000-1.030) Urine Glucose (UA) (Negative) Urine Opiates Screen (Neg) 01/18/22 01/18/22 01/18/22 Range/Units 14:55 14:55 14:55 Hct (42-52) % MCHC (32-36) g/dL [place] # (Auto) (0.11-0.59) K/uL VBG pH 7.42 H (7.36-7.41) Sodium 132 L (136-145) mmol/L Potassium 3.2 L (3.5-5.1) mmol/L Chloride 94 L (98-107) mmol/L BUN 26 H (6-23) mg/dl BUN/Creatinine Ratio 33.8 H (10-20) Glucose 282 H (70-99(Fasting)) mg/dl POC Glucose (70-99) mg/dl Hemoglobin A1c 11.5 H (4.5-5.6) % AST 43 H (13-39) U/L ALT 72 H (7-52) U/L Total Creatine Kinase 278 H (30-223) U/L Ur Specific [place] (1.000-1.030) Urine Glucose (UA) (Negative) Urine Opiates Screen (Neg) 01/18/22 01/18/22 01/18/22 Range/Units 19:14 21:44 Unknown Hct (42-52) % MCHC (32-36) g/dL [place] # (Auto) (0.11-0.59) K/uL VBG pH (7.36-7.41) Sodium (136-145) mmol/L Potassium (3.5-5.1) mmol/L Chloride (98-107) mmol/L BUN (6-23) mg/dl BUN/Creatinine Ratio (10-20) Glucose (70-99(Fasting)) mg/dl POC Glucose 234 H 242 H (70-99) mg/dl Hemoglobin A1c (4.5-5.6) % AST (13-39) U/L ALT (7-52) U/L Total Creatine Kinase (30-223) U/L Ur Specific [place] (1.000-1.030) Urine Glucose (UA) (Negative) Urine Opiates Screen Pos H (Neg) 01/18/22 01/19/22 01/19/22 Range/Units Unknown 00:37 04:36 Hct (42-52) % MCHC (32-36) g/dL [place] # (Auto) (0.11-0.59) K/uL VBG pH (7.36-7.41) Sodium (136-145) mmol/L Potassium (3.5-5.1) mmol/L Chloride (98-107) mmol/L BUN (6-23) mg/dl BUN/Creatinine Ratio (10-20) Glucose (70-99(Fasting)) mg/dl POC Glucose 286 H 221 H (70-99) mg/dl Hemoglobin A1c (4.5-5.6) % AST (13-39) U/L ALT (7-52) U/L Total Creatine Kinase (30-223) U/L Ur Specific [place] > 1.045 H (1.000-1.030) Urine Glucose (UA) 3+ H (Negative) Urine Opiates Screen (Neg) 01/19/22 01/19/22 01/19/22 Range/Units 07:40 07:40 07:54 Hct 40.6 L (42-52) % MCHC (32-36) g/dL [place] # (Auto) (0.11-0.59) K/uL VBG pH (7.36-7.41) Sodium 134 L (136-145) mmol/L Potassium (3.5-5.1) mmol/L Chloride (98-107) mmol/L BUN (6-23) mg/dl BUN/Creatinine Ratio 22.4 H (10-20) Glucose 195 H (70-99(Fasting)) mg/dl POC Glucose 197 H (70-99) mg/dl Hemoglobin A1c (4.5-5.6) % AST (13-39) U/L ALT (7-52) U/L Total Creatine Kinase (30-223) U/L Ur Specific [place] (1.000-1.030) Urine Glucose (UA) (Negative) Urine Opiates Screen (Neg) 01/19/22 Range/Units 11:14 Hct (42-52) % MCHC (32-36) g/dL [place] # (Auto) (0.11-0.59) K/uL VBG pH (7.36-7.41) Sodium (136-145) mmol/L Potassium (3.5-5.1) mmol/L Chloride (98-107) mmol/L BUN (6-23) mg/dl BUN/Creatinine Ratio (10-20) Glucose (70-99(Fasting)) mg/dl POC Glucose 184 H (70-99) mg/dl Hemoglobin A1c (4.5-5.6) % AST (13-39) U/L ALT (7-52) U/L Total Creatine Kinase (30-223) U/L Ur Specific [place] (1.000-1.030) Urine Glucose (UA) (Negative) Urine Opiates Screen (Neg) Diagnostic Findings MRI brain-No acute intracranial abnormality. CT head-no acute intracranial abnormality. EEG- no seizure focus (1) Nausea & vomiting Vomiting type: unspecified Qualified Code(s): R11.2 - Nausea with vomiting, unspecified
--- NOTE | 2022-01-19 14:46 | Hospitalist Progress Note ---
Date of Service January 19, 2022 Assessment & Plan (1) Altered mental status: Plan: 52-year-old male with PMH of HLD, DM type II, JOHNNIE on CPAP, bladder cancer status post resection, renal calculi, seizure and anxiety presented to our ED 01/18 for evaluation of AMS. On 01/18 a.m., patient was in his usual state of health prior to going to work and became very lethargic around lunchtime/difficulty staying awake followed by little bit of eating and then vomiting. History negative for loss of consciousness or seizure-like activity or loss of bowel or bladder function. At presentation in ED, patient was hemodynamically stable with unremarkable labs except for glucose level of 312, no signs of DKA. Patient was given Narcan without any change in mental status. He is being managed for the following: #. Altered mental status: Patient brought in for evaluation of AMS [see above], no improvement after Narcan. At bedside, patient was sleepy but arousable and oriented x4 Patient denies any prior such episode Etiology unclear, patient had taken 1 tablet of Vicodin late in the morning of arrival. Admitting VBG fairly WNL. Admitting glucose 312 with no signs of DKA. Patient denied any polyuria or polydipsia/belly pain. Urine drug screen positive for opiates, rest are either negative or pending. CT head and MRI brain with no acute findings. Neurology consult, await recommendations. EEG. #. Hyperglycemia/uncontrolled T2DM Recently diagnosed with diabetes after outpatient labs showed glucose over 300 Admitting A1c of 11.5, very poorly controlled, diabetic nurse consult, pharmacy consult, appreciate recommendations Metformin held, on insulin sliding protocol #. Hypoxia Patient noted to be hypoxic at 87% on room air, improved on 2 L of oxygen Likely secondary to underlying JOHNNIE and somnolence, can wean down oxygen as tolerated Admitting CXR reviewed. #. Electrolyte abnormality Likely secondary to vomiting prior to arrival Monitor and replete as appropriate Expect to improve with better p.o. intake. #. Other chronic medical conditions: HLD, sleep apnea on CPAP, renal stone Resume/continue with home meds as and when appropriate #. DVT prophylaxis: Heparin 01/19: Patient's was given a phone call and updated about the current status of the patient. Made aware that CT of the head/ MRI of the brain and urine drug screen has been negative so far and likely it is not diabetic ketoacidosis that is causing his altered mentation. Patient's was anxious about the answers as to what it might have been that he was altered. Made her aware that neurology is still evaluating him, and as soon as we have answers down the road and will update her as soon as possible. She seemed not very happy that we do not have any answers by now, made her aware that various tests has been done and were negative for his AMS; answered all her questions. Conversation lasted for more than 15 minutes. Admission and Anticipated Discharge Date Admission Date: January 18, 2022 Subjective Patient seen and examined at bedside as a follow-up of altered mental status and uncontrolled diabetes. Patient was lying in bed, on 2 L nasal cannula oxygen, drowsy/sleepy and easily arousable, oriented x4 including while he was in the hospital. Per patient he never had this kind of episode in the past, no new acute events overnight per RN. Patient denies any further nausea or vomiting or belly pain or chest pain or increased urination or acute changes in bowel or bladder habits or other review of symptoms. Physical Exam Physical Exam: GENERAL: drowsy, easily arousable and oriented x4. NAD, on RA. HEENT: No pallor, no icterus. Pupils equal, round and reactive to light. Oral mucosa moist. NECK: No JVD, no neck masses. HEART: S1 and S2 heard. Regular rate and rhythm. No murmur, no gallop. RESPIRATORY SYSTEM: Normal AP diameter. No accessory muscle use. No wheezing, no crackles. ABDOMEN: Soft, bowel sounds present, nontender, no distention. CENTRAL NERVOUS SYSTEM: No facial droop. Speech is clear. Obeys simple commands. Moves extremities. EXTREMITIES: No edema, no erythema seen. Results & Data Results & Data ([facility]) Vital Signs (Past 12 Hours) Vital Signs Temp Pulse Pulse Resp BP Pulse Ox Pulse Ox 01/19/22 11:50 36.4 C L 63 20 145/91 H 96 01/19/22 09:37 94 01/19/22 08:00 36.4 C L 61 18 135/87 94 01/19/22 06:45 15 95 01/19/22 04:05 94 01/19/22 03:27 36.4 C L 52 L 14 128/85 97 01/19/22 03:09 56 L 10 L 95
--- NOTE | 2022-01-19 15:47 | Electroencephalogram ---
EEG Procedure Note Date of Service January 19, 2022 Start / End Times Start Time: 10:42 End Time: 11:02 Referring Physician Erlinda Ruiz PA-C History A 52year-old male admitted with altered mental status. EEG performed for motion epileptiform activity. Home Medication List Medication Instructions Recorded Confirmed Type gemfibrozil 600 mg tablet (Lopid) 600 mg PO BID 03/02/19 01/18/22 History hydrocodone 5 mg-acetaminophen 325 1 tab PO BID PRN 03/02/19 01/18/22 History mg tablet lorazepam 1 mg tablet (Ativan) 1 mg PO DIRECTED PRN 03/02/19 01/18/22 History omega-3s 300 ok-aco-rto-other 1,000 mg PO BID 03/02/19 01/18/22 History [id number] oil 1,000 mg capsule (Snook-3 Fish Oil) pantoprazole 40 mg tablet,delayed 40 mg PO QAM 03/02/19 01/18/22 History release sulindac 150 mg tablet 150 mg PO BID 03/02/19 01/18/22 History oxycodone 5 mg tablet 5 mg PO Q4H PRN #15 tab 01/06/21 03/04/21 Rx amiloride 5 mg-hydrochlorothiazide 1 tab PO QAM 01/19/21 01/18/22 History 50 mg tablet cyanocobalamin (vitamin B-12) 1,000 mcg PO QAM 01/19/21 01/18/22 History 1,000 mcg tablet multivitamin 1 tab PO QAM 01/19/21 01/18/22 History metformin 500 mg tablet 500 mg PO BIDM 01/18/22 01/18/22 History Inpatient Medication List Gemfibrozil (Gemfibrozil 600 Mg Tab) 600 mg PO BID DENIS Stop: 02/17/22 21:59 Last Admin: 01/19/22 07:56 Dose: 600 mg Documented by: [id number] Admin: 01/18/22 23:06 Dose: 600 mg Documented by: [id number] Sodium Chloride (Nss 1000ml) 1,000 mls @ 100 mls/hr IV .Q10H DENIS Stop: 02/17/22 21:05 Last Admin: 01/19/22 11:22 Dose: 100 mls/hr Documented by: [id number] Infusion: 01/19/22 10:52 Dose: 0 mls/hr Documented by: [id number] Admin: 01/18/22 22:46 Dose: 100 mls/hr Documented by: [id number] Promethazine HCl 12.5 mg/ (Sodium Chloride) 50.5 mls @ 202 mls/hr IV Q6H PRN PRN Reason: Nausea And Vomiting Stop: 02/17/22 21:59 Last Infusion: 01/19/22 00:30 Dose: 0 mls/hr Documented by: [id number] Admin: 01/18/22 22:45 Dose: 202 mls/hr Documented by: [id number] Insulin Aspart (Insulin Aspart Per Unit) 0 units SC ACHS DENIS Stop: 02/17/22 21:44 Last Admin: 01/19/22 12:09 Dose: 12 units Documented by: [id number] Cosigned by: [id number] Admin: 01/19/22 08:00 Dose: 6 units Documented by: [id number] Cosigned by: [id number] Admin: 01/18/22 23:07 Dose: 6 units Documented by: [id number] Cosigned by: [id number] Pantoprazole Sodium (Pantoprazole 40 Mg Tab) 40 mg PO QAM DENIS Stop: 02/18/22 08:59 Last Admin: 01/19/22 07:56 Dose: 40 mg Documented by: [id number] Discontinued Medications Gadobutrol (Gadobutrol 65ml Vial) 12 ml IV ONCE ONE Stop: 01/19/22 06:13 Last Admin: 01/19/22 06:12 Dose: 12 ml Documented by: [id number] Sodium Chloride (Nss 1000ml) 1,000 mls @ 999 mls/hr IV .Q1H1M DENIS Stop: 01/18/22 15:45 Last Infusion: 01/18/22 17:48 Dose: 0 mls/hr Documented by: [id number] Admin: 01/18/22 14:54 Dose: 999 mls/hr Documented by: [id number] Potassium Chloride (K Vipin / Wtr) 10 meq in 100 mls @ 100 mls/hr IV Q1H DENIS; Protocol Stop: 01/18/22 21:44 Last Infusion: 01/19/22 03:50 Dose: 0 mls/hr Documented by: [id number] Admin: 01/19/22 01:22 Dose: 100 mls/hr Documented by: [id number] Infusion: 01/19/22 01:19 Dose: 100 mls/hr Documented by: [id number] Admin: 01/19/22 00:19 Dose: 100 mls/hr Documented by: [id number] Infusion: 01/18/22 20:08 Dose: 100 mls/hr Documented by: [id number] Admin: 01/18/22 19:08 Dose: 100 mls/hr Documented by: [id number] Infusion: 01/18/22 19:05 Dose: 100 mls/hr Documented by: [id number] Admin: 01/18/22 18:05 Dose: 100 mls/hr Documented by: [id number] Influenza Virus Vaccine Quadrival (Flu Vaccine (Fluarix) 0.5ml Syr (Standard Dose)) 0.5 ml IM .ONCE ONE Stop: 01/19/22 05:31 Last Admin: 01/19/22 13:53 Dose: Not Given Documented by: [id number] Insulin Aspart (Insulin Aspart Per Unit) 0 units SC 0000,0400 [facility] Stop: 01/19/22 04:01 Last Admin: 01/19/22 04:38 Dose: 5 units Documented by: [id number] Cosigned by: [id number] Admin: 01/19/22 00:48 Dose: 8 units Documented by: [id number] Cosigned by: [id number] Insulin Glargine (Insulin Glargine Solostar 100 Units/Ml 3 Ml Pen) 20 units SC ONE ONE Stop: 01/18/22 22:01 Last Admin: 01/18/22 23:06 Dose: 20 units Documented by: [id number] Cosigned by: [id number] Insulin Glargine (Insulin Glargine Solostar 100 Units/Ml 3 Ml Pen) 20 units SC NOW ONE; Protocol Stop: 01/19/22 08:46 Last Admin: 01/19/22 10:02 Dose: 20 units Documented by: [id number] Cosigned by: [id number] Insulin Human Regular (Novolin-R Insulin Per Unit Charge) 5 units IV NOW STA Stop: 01/18/22 15:52 Last Admin: 01/18/22 16:30 Dose: 5 units Documented by: [id number] Cosigned by: [id number] Naloxone HCl (Naloxone Hcl 0.4 Mg/1 Ml Vial/Carp) 0.4 mg IV NOW STA Stop: 01/18/22 16:09 Last Admin: 01/18/22 16:30 Dose: 0.4 mg Documented by: [id number] Description This is a 21 electrode EEG with a single channel dedicated to limited EKG. The electrodes were placed in accordance with the International 10-20 system. Report: Interpretation Report: At the onset of the EEG the patient is drowsy. The background is symmetric. Background predominantly consist of 78 Hz theta activity with some intermixed polymorphic hertz delta activity. No stage II sleep transients are seen. Photic stimulation does not induce any additional abnormalities. Clinical Correlation Impression: This is a abnormal awake and drowsy routine EEG due to mild generalized background slowing suggestive of a mild nonspecific encephalopathy. No epileptiform discharges are seen. There is no evidence of focal slowing.
[2022-01-19] MEDS ORDERED: INSULIN GLARGINE SOLOSTAR 100 UNITS/ML 3 ML PEN SC SCH (21:00)
--- NOTE | 2022-01-19 21:04 | Electrocardiogram Report ---
Test Reason : Blood Pressure : / mmHG Vent. Rate : 060 BPM Atrial Rate : 060 BPM P-R Int : 198 ms QRS Dur : 106 ms QT Int : 426 ms P-R-T Axes : 051 041 030 degrees QTc Int : 426 ms Normal sinus rhythm Cannot rule out Septal infarct , age undetermined Abnormal ECG When compared with ECG of 20-JAN-2021 09:40, No significant change Confirmed by Dino Alvarado ([id number]) on 01/19/2022 9:04:10 PM Referred By: REFERRED SELF Confirmed By:Dino Alvarado
[2022-01-19] MEDS: HEPARIN SOD 5,000 UNIT/0.5 ML VIAL SQ SCH (21:07)
[2022-01-20 06:49] LABS: BUN Creatinine Ratio 14.5 (10-20); Calcium 8.7 mg/dl (8.5-10.1); Est GFR (African American) 128.3 ml/min; Est GFR (Non-African American) 110.7 ml/min; Magnesium 1.7 mg/dl (1.7-2.4); Phosphorus 2.4 mg/dl (2.5-4.9); Potassium 3.5 mmol/L (3.5-5.1)
[2022-01-20 06:52] LABS: Estimated Average Glucose 278 mg/dl; Hemoglobin A1C 11.3 % (4.5-5.6)
[2022-01-20 06:54] LABS: Hematocrit (blood only) 41.2 % (42-52); Hemoglobin 14.5 g/dL (14.0-18.0); Mean Corpuscular Hemoglobin 30.4 pg (25-34); Mean Corpuscular Hgb Conc 35.2 g/dL (32-36); Mean Corpuscular Volume 86.4 fL (80-100); Platelet Count 200 K/uL (130-400); RDW Coefficient of Variation 12.4 % (11.5-14.5); RDW Standard Deviation 39.2 fL (36.4-46.3); Red Blood Count 4.77 M/uL (4.7-6.1); White Blood Count 5.76 K/uL (4.8-10.8)
[2022-01-20] MEDS: INSULIN ASPART PER UNIT SC SCH ×4 (09:02→20:54)
[2022-01-20] MEDS: INSULIN GLARGINE SOLOSTAR 100 UNITS/ML 3 ML PEN SC SCH (09:03)
[2022-01-20] MEDS: HEPARIN SOD 5,000 UNIT/0.5 ML VIAL SQ SCH ×2 (09:06→20:55)
[2022-01-20] MEDS: PROMETHAZINE HCL 12.5 MG in SODIUM CHLORIDE 0.9% 50 ML IV PRN (09:50)
[2022-01-20] MEDS: PANTOprazole 40 MG TAB PO SCH (09:52)
[2022-01-20] MEDS: POT PHOSPHATE MONOBASIC W/ SOD TAB PO SCH ×4 (09:52→20:54)
[2022-01-20] MEDS: gemfibroziL 600 MG TAB PO SCH ×2 (09:52→20:54)
[2022-01-20] MEDS ORDERED: ondansetron HCL 6 MG in DEXTROSE 5% 50 ML IV PRN (10:03)
--- NOTE | 2022-01-20 11:24 | Cardiology Consultation ---
Date of Consultation January 20, 2022 Assessment & Plan (1) Lethargy: (2) Nausea & vomiting: (3) Diarrhea: (4) Bradycardia: (5) Sleep apnea: Recommend further evaluation of the patient's nausea, vomiting, and diarrhea. Consider CT scan, evaluation for infectious or noninfectious causes of acute diarrhea, etc. Maintain electrolytes Continue telemetry. If telemetry is benign, outpatient Zio monitoring may be considered though no significant arrhythmias noted on continuous telemetry monitoring thus far. Refer for resting echocardiogram Risk factor and lifestyle modification Recommend consideration for the addition of moderate intensity statin therapy down the road. Supervising Physician Co-Signing Physician Notes I have reviewed the medical record and discussed the case with Mr. Lee. I examined and interviewed the patient. He is in no acute distress. The patient is here more for GI problems as outlined. He had an echocardiogram completed today which I will review when it is available. History of Present Illness Reason for Consultation: Near syncope, ? arrhythmia, ? Zio patch Requesting Physician: Miguel Ángel Attending Physician: Miguel Ángel History of Present Illness Mr. Arturo Vaughn is a 52-year-old male who was admitted through the emergency room on January 18, 2022 with complaints of extreme fatigue, nausea, vomiting, and diarrhea that started while at work. Borderline hypoxia noted in the ER. Cardiology consultation requested on 01/20/2022 due to the lethargy, ? near syncope, ? arrhythmia, ? ZIO monitor. EKG on January 18, 2022 revealed normal sinus rhythm at 60 bpm. Cannot rule out an old septal infarct. EKG on January 20, 2022 revealed sinus bradycardia at 57 bpm. Continuous telemetry monitoring has demonstrated a sinus mechanism throughout, with bradycardia down to 47 bpm, heart rates predominantly in the 50s and 60s, currently 71 bpm. Troponin less than 0.03 ng/ml. B-Natriuretic Peptide was normal at 57 pg/mL. TSH was normal at 2.401 uIu/mL. Additional obtain laboratory work as noted below. Chest x-ray reportedly revealed low lung volumes with bibasilar opacities favoring atelectasis. CT of the head on presentation showed no acute intracranial abnormality. Brain MRI showed no acute intracranial abnormality. The patient has been evaluated by neurology with EEG showing mild generalized slowing. Neurological recommendations were for continued conservative observation. Patient without prior cardiac history. He specifically denies history of CAD, VA, CHF, arrhythmia, heart murmur, rheumatic fever, or scarlet fever. No chest pain, palpitations, unusual shortness of breath, fluid retention, or syncope. In September 2013 the patient presented with chest discomfort and underwent exercise stress testing on September 12, 2013, exercising for 11 minutes on a standard Jorge protocol, 13.4 METS, without inducible wall motion abnormality or ischemic EKG changes. No arrhythmias were noted with stress. Blood pressure response to exercise was hypertensive. Resting echocardiography revealed normal normal LV systolic function, ejection fraction 60 to 65%, normal diastolic function, no significant valvular pathology. History includes convulsion secondary to head injury. Outpatient medical record states last seizure was in 1990. He has a history of bladder cancer, reflux, kidney stones, hypertension, dyslipidemia, degenerative joint disease, diaphragmatic hernia, and obesity with severe obstructive sleep apnea. In November 2021 he was diagnosed with new onset type 2 diabetes mellitus for which he was started on Metformin in early December. He is chronically prescribed gemfibrozil. He is not prescribed statin therapy. Laboratory work at the end of November, on December 06, 2021 notable for moderately severe hypertriglyceridemia (835) and mild hyponatremia. LDL cholesterol at that time was 74 mg/deciliter Allergies Allergy/AdvReac Type Severity Reaction Status Date / Time No Known Allergies Allergy Mild NONE Verified 01/18/22 15:07 Home Medications Medication Instructions Recorded Confirmed Type gemfibrozil 600 mg tablet (Lopid) 600 mg PO BID 03/02/19 01/18/22 History hydrocodone 5 mg-acetaminophen 325 1 tab PO BID PRN 03/02/19 01/18/22 History mg tablet lorazepam 1 mg tablet (Ativan) 1 mg PO DIRECTED PRN 03/02/19 01/18/22 History omega-3s 300 [id number]-other 1,000 mg PO BID 03/02/19 01/18/22 History [id number] oil 1,000 mg capsule ([place]-3 Fish Oil) pantoprazole 40 mg tablet,delayed 40 mg PO QAM 03/02/19 01/18/22 History release sulindac 150 mg tablet 150 mg PO BID 03/02/19 01/18/22 History oxycodone 5 mg tablet 5 mg PO Q4H PRN #15 tab 01/06/21 03/04/21 Rx amiloride 5 mg-hydrochlorothiazide 1 tab PO QAM 01/19/21 01/18/22 History 50 mg tablet cyanocobalamin (vitamin B-12) 1,000 mcg PO QAM 01/19/21 01/18/22 History 1,000 mcg tablet multivitamin 1 tab PO QAM 01/19/21 01/18/22 History metformin 500 mg tablet 500 mg PO BIDM 01/18/22 01/18/22 History Patient History Medical History Anxiety Arthritis Elevated triglycerides with high cholesterol GERD (gastroesophageal reflux disease) controlled History of kidney stones History of seizure Seizure onset at age 11 (after tree falling on head) > most recent seizure 12+ years ago, controlled off anticonvulsants HLD (hyperlipidemia) Hx of bladder cancer no chemo or xrt, under surveillance by urology (Dr. Beckett; [facility]) Obesity Sleep apnea CPAP Surgical History History of arthroscopic knee surgery Left History of cystoscopy History of esophagogastroduodenoscopy (EGD) History of incision and drainage Left Elbow Wound Incision and Drainage (02/12/21): LMA#5 at [facility] Hx of cholecystectomy Hx of LASIK Family History Mother Family history of diabetes mellitus Other No family history of adverse response to anesthesia Social History Smoking Status: Never smoker Second Hand Exposure: No; Hx Alcohol Use: Yes Alcohol type: hard liquor Hx Substance Use: No Preferred Language: [place] Verdean Communication Ability: Effective Primary Care Coordinator Required: No Beliefs That Will Affect Care: None marital status: Current Living Situation: Spouse current occupational status: employed How many Children do You have: 3 Other Information That Helps Us Care for You: No Feels Safe at Home: Yes Safety Concerns: Feels Safe At This Time Assistive Devices: CPAP and Oxygen - Continuous Review of Systems Review of Systems: Complete Review of Systems is as stated above, negative, or noncontributory. Physical Exam Physical Exam: General: Mild distress, holding abdomen, complaining of recurrent nausea and diarrhea HENT: Normocephalic. Eyes: PER. Conjunctiva pink, sclera clear. Neck: No carotid bruits. No JVD. No HJR. Heart: RRR. No murmur. No rub. Lungs: Clear to auscultation. Abdomen: +BS. + Tenderness. No organomegaly. Extremities: No clubbing, cyanosis, or edema. Pulses: radial=2/4, posterior tibial=2/4. Limited neurological examination: No focal deficit. Results & Data ([facility]) Vital Signs (Past 12 Hours) Vital Signs Temp Pulse Pulse Resp BP BP Pulse Ox 01/20/22 09:00 01/20/22 07:59 36.7 C 63 18 128/88 94 01/20/22 03:51 36.6 C 51 L 16 132/76 96 01/19/22 23:54 60 Pulse Ox 01/20/22 09:00 94 01/20/22 07:59 01/20/22 03:51 01/19/22 23:54 Laboratory Results Laboratory Results - last 48 hr 01/18/22 01/18/22 01/18/22 14:30 14:52 14:55 WBC RBC Hgb Hct MCV MCH MCHC RDW Std Deviation RDW Coeff of Osmin Plt Count MPV Immature Gran % (Auto) Neut % (Auto) Lymph % (Auto) Coos % (Auto) Eos % (Auto) Baso % (Auto) Neut # (Auto) Lymph # (Auto) Coos # (Auto) Eos # (Auto) Baso # (Auto) Immature Gran # (Auto) PT INR VBG pH VBG pCO2 VBG pO2 VBG HCO3 VBG O2 Saturation VBG Base Excess Barometric Pressure Sodium Potassium Chloride Carbon Dioxide Anion Gap BUN Creatinine Est Cr Clr Drug Dosing Est GFR ( Amer) Est GFR (Non-Af Amer) BUN/Creatinine Ratio Glucose POC Glucose 292 H 312 H* Estimat Average Glucose Hemoglobin A1c Lactate 1.2 Calcium Phosphorus Magnesium Total Bilirubin AST ALT Alkaline Phosphatase Ammonia Total Creatine Kinase Troponin I B-Natriuretic Peptide Total Protein Albumin Globulin Albumin/Globulin Ratio Lipase Procalcitonin TSH Urine Color Urine Appearance Urine pH Ur Specific [place] Urine Protein Urine Glucose (UA) Urine Ketones Urine Blood Urine Nitrite Urine Bilirubin Urine Urobilinogen Ur Leukocyte Esterase Urine Opiates Screen Ur Methadone, Qual Urine Barbiturates Ur Phencyclidine (PCP) U Amphetamin/Meth Scrn MDMA (Ecstasy) Screen U Benzodiazepines Scrn Ur Cocaine Metabolite U Marijuana (THC) Screen SARS-CoV-2, RNA, NAAT 01/18/22 01/18/22 01/18/22 14:55 14:55 14:55 WBC 6.97 RBC 5.05 Hgb 15.7 Hct 42.3 MCV 83.8 MCH 31.1 MCHC 37.1 H RDW Std Deviation 37.3 RDW Coeff of Osmin 12.3 Plt Count 229 MPV 10.1 Immature Gran % (Auto) 0.1 Neut % (Auto) 63.5 Lymph % (Auto) 24.1 Coos % (Auto) 9.8 Eos % (Auto) 1.9 Baso % (Auto) 0.6 Neut # (Auto) 4.43 Lymph # (Auto) 1.68 Coos # (Auto) 0.68 H Eos # (Auto) 0.13 Baso # (Auto) 0.04 Immature Gran # (Auto) 0.01 PT 10.4 INR 1.0 VBG pH VBG pCO2 VBG pO2 VBG HCO3 VBG O2 Saturation VBG Base Excess Barometric Pressure Sodium 132 L Potassium 3.2 L Chloride 94 L Carbon Dioxide 28 Anion Gap 10 BUN 26 H Creatinine 0.77 Est Cr Clr Drug Dosing 136.8 Est GFR ( Amer) 122.6 Est GFR (Non-Af Amer) 105.8 BUN/Creatinine Ratio 33.8 H Glucose 282 H POC Glucose Estimat Average Glucose Hemoglobin A1c Lactate Calcium 9.7 Phosphorus Magnesium 1.7 Total Bilirubin 0.7 AST 43 H ALT 72 H Alkaline Phosphatase 53 Ammonia Total Creatine Kinase 278 H Troponin I < 0.03 B-Natriuretic Peptide Total Protein 6.8 Albumin 4.3 Globulin 2.5 Albumin/Globulin Ratio 1.7 Lipase 44 Procalcitonin TSH Urine Color Urine Appearance Urine pH Ur Specific [place] Urine Protein Urine Glucose (UA) Urine Ketones Urine Blood Urine Nitrite Urine Bilirubin Urine Urobilinogen Ur Leukocyte Esterase Urine Opiates Screen Ur Methadone, Qual Urine Barbiturates Ur Phencyclidine (PCP) U Amphetamin/Meth Scrn MDMA (Ecstasy) Screen U Benzodiazepines Scrn Ur Cocaine Metabolite U Marijuana (THC) Screen SARS-CoV-2, RNA, NAAT 01/18/22 01/18/22 01/18/22 14:55 14:55 14:55 WBC RBC Hgb Hct MCV MCH MCHC RDW Std Deviation RDW Coeff of [place] Plt Count MPV Immature Gran % (Auto) Neut % (Auto) Lymph % (Auto) Coos % (Auto) Eos % (Auto) Baso % (Auto) Neut # (Auto) Lymph # (Auto) Coos # (Auto) Eos # (Auto) Baso # (Auto) Immature Gran # (Auto) PT INR VBG pH 7.42 H VBG pCO2 48 VBG pO2 59 VBG HCO3 30 VBG O2 Saturation 91.2 VBG Base Excess 4.6 Barometric Pressure 735.1 Sodium Potassium Chloride Carbon Dioxide Anion Gap BUN Creatinine Est Cr Clr Drug Dosing Est GFR ( Amer) Est GFR (Non-Af Amer) BUN/Creatinine Ratio Glucose POC Glucose Estimat Average Glucose 283 Hemoglobin A1c 11.5 H Lactate Calcium Phosphorus Magnesium Total Bilirubin AST ALT Alkaline Phosphatase Ammonia Total Creatine Kinase Troponin I B-Natriuretic Peptide Total Protein Albumin Globulin Albumin/Globulin Ratio Lipase Procalcitonin TSH 2.401 Urine Color Urine Appearance Urine pH Ur Specific [place] Urine Protein Urine Glucose (UA) Urine Ketones Urine Blood Urine Nitrite Urine Bilirubin Urine Urobilinogen Ur Leukocyte Esterase Urine Opiates Screen Ur Methadone, Qual Urine Barbiturates Ur Phencyclidine (PCP) U Amphetamin/Meth Scrn MDMA (Ecstasy) Screen U Benzodiazepines Scrn Ur Cocaine Metabolite U Marijuana (THC) Screen SARS-CoV-2, RNA, NAAT 01/18/22 01/18/22 01/18/22 19:14 21:44 Unknown WBC RBC Hgb Hct MCV MCH MCHC RDW Std Deviation RDW Coeff of [place]min Plt Count MPV Immature Gran % (Auto) Neut % (Auto) Lymph % (Auto) Coos % (Auto) Eos % (Auto) Baso % (Auto) Neut # (Auto) Lymph # (Auto) Coos # (Auto) Eos # (Auto) Baso # (Auto) Immature Gran # (Auto) PT INR VBG pH VBG pCO2 VBG pO2 VBG HCO3 VBG O2 Saturation VBG Base Excess Barometric Pressure Sodium Potassium Chloride Carbon Dioxide Anion Gap BUN Creatinine Est Cr Clr Drug Dosing Est GFR ( Amer) Est GFR (Non-Af Amer) BUN/Creatinine Ratio Glucose POC Glucose 234 H 242 H Estimat Average Glucose Hemoglobin A1c Lactate Calcium Phosphorus Magnesium Total Bilirubin AST ALT Alkaline Phosphatase Ammonia Total Creatine Kinase Troponin I B-Natriuretic Peptide Total Protein Albumin Globulin Albumin/Globulin Ratio Lipase Procalcitonin TSH Urine Color Urine Appearance Urine pH Ur Specific [place] Urine Protein Urine Glucose (UA) Urine Ketones Urine Blood Urine Nitrite Urine Bilirubin Urine Urobilinogen Ur Leukocyte Esterase Urine Opiates Screen Pos H Ur Methadone, Qual Neg Urine Barbiturates Neg Ur Phencyclidine (PCP) Neg U Amphetamin/Meth Scrn Neg MDMA (Ecstasy) Screen Neg U Benzodiazepines Scrn Neg Ur Cocaine Metabolite Neg U Marijuana (THC) Screen Neg SARS-CoV-2, RNA, NAAT 01/18/22 01/18/22 01/19/22 Unknown Unknown 00:37 WBC RBC Hgb Hct MCV MCH MCHC RDW Std Deviation RDW Coeff of [place]min Plt Count MPV Immature Gran % (Auto) Neut % (Auto) Lymph % (Auto) Coos % (Auto) Eos % (Auto) Baso % (Auto) Neut # (Auto) Lymph # (Auto) Coos # (Auto) Eos # (Auto) Baso # (Auto) Immature Gran # (Auto) PT INR VBG pH VBG pCO2 VBG pO2 VBG HCO3 VBG O2 Saturation VBG Base Excess Barometric Pressure Sodium Potassium Chloride Carbon Dioxide Anion Gap BUN Creatinine Est Cr Clr Drug Dosing Est GFR ( Amer) Est GFR (Non-Af Amer) BUN/Creatinine Ratio Glucose POC Glucose 286 H Estimat Average Glucose Hemoglobin A1c Lactate Calcium Phosphorus Magnesium Total Bilirubin AST ALT Alkaline Phosphatase Ammonia Total Creatine Kinase Troponin I B-Natriuretic Peptide Total Protein Albumin Globulin Albumin/Globulin Ratio Lipase Procalcitonin TSH Urine Color Dark Yellow Urine Appearance Clear Urine pH 5.5 Ur Specific [place] > 1.045 H Urine Protein Negative Urine Glucose (UA) 3+ H Urine Ketones Negative Urine Blood Negative Urine Nitrite Negative Urine Bilirubin Negative Urine Urobilinogen Negative Ur Leukocyte Esterase Negative Urine Opiates Screen Ur Methadone, Qual Urine Barbiturates Ur Phencyclidine (PCP) U Amphetamin/Meth Scrn MDMA (Ecstasy) Screen U Benzodiazepines Scrn Ur Cocaine Metabolite U Marijuana (THC) Screen SARS-CoV-2, RNA, NAAT NEGATIVE 01/19/22 01/19/22 01/19/22 04:36 07:40 07:40 WBC 5.74 RBC 4.73 Hgb 14.4 Hct 40.6 L MCV 85.8 MCH 30.4 MCHC 35.5 RDW Std Deviation 38.9 RDW Coeff of Osmin 12.3 Plt Count 215 MPV 10.1 Immature Gran % (Auto) Neut % (Auto) Lymph % (Auto) Coos % (Auto) Eos % (Auto) Baso % (Auto) Neut # (Auto) Lymph # (Auto) Coos # (Auto) Eos # (Auto) Baso # (Auto) Immature Gran # (Auto) PT INR VBG pH VBG pCO2 VBG pO2 VBG HCO3 VBG O2 Saturation VBG Base Excess Barometric Pressure Sodium 134 L Potassium 3.7 Chloride 101 Carbon Dioxide 29 Anion Gap 4 BUN 15 Creatinine 0.67 Est Cr Clr Drug Dosing 175.6 Est GFR ( Amer) 129.9 Est GFR (Non-Af Amer) 112.0 BUN/Creatinine Ratio 22.4 H Glucose 195 H POC Glucose 221 H Estimat Average Glucose Hemoglobin A1c Lactate Calcium 8.9 Phosphorus Magnesium Total Bilirubin AST ALT Alkaline Phosphatase Ammonia Total Creatine Kinase Troponin I B-Natriuretic Peptide Total Protein Albumin Globulin Albumin/Globulin Ratio Lipase Procalcitonin TSH Urine Color Urine Appearance Urine pH Ur Specific [place] Urine Protein Urine Glucose (UA) Urine Ketones Urine Blood Urine Nitrite Urine Bilirubin Urine Urobilinogen Ur Leukocyte Esterase Urine Opiates Screen Ur Methadone, Qual Urine Barbiturates Ur Phencyclidine (PCP) U Amphetamin/Meth Scrn MDMA (Ecstasy) Screen U Benzodiazepines Scrn Ur Cocaine Metabolite U Marijuana (THC) Screen SARS-CoV-2, RNA, NAAT 01/19/22 01/19/22 01/19/22 07:54 11:14 16:07 WBC RBC Hgb Hct MCV MCH MCHC RDW Std Deviation RDW Coeff of [place]min Plt Count MPV Immature Gran % (Auto) Neut % (Auto) Lymph % (Auto) Coos % (Auto) Eos % (Auto) Baso % (Auto) Neut # (Auto) Lymph # (Auto) Coos # (Auto) Eos # (Auto) Baso # (Auto) Immature Gran # (Auto) PT INR VBG pH VBG pCO2 VBG pO2 VBG HCO3 VBG O2 Saturation VBG Base Excess Barometric Pressure Sodium Potassium Chloride Carbon Dioxide Anion Gap BUN Creatinine Est Cr Clr Drug Dosing Est GFR ( Amer) Est GFR (Non-Af Amer) BUN/Creatinine Ratio Glucose POC Glucose 197 H 184 H 126 H Estimat Average Glucose Hemoglobin A1c Lactate Calcium Phosphorus Magnesium Total Bilirubin AST ALT Alkaline Phosphatase Ammonia Total Creatine Kinase Troponin I B-Natriuretic Peptide Total Protein Albumin Globulin Albumin/Globulin Ratio Lipase Procalcitonin TSH Urine Color Urine Appearance Urine pH Ur Specific [place] Urine Protein Urine Glucose (UA) Urine Ketones Urine Blood Urine Nitrite Urine Bilirubin Urine Urobilinogen Ur Leukocyte Esterase Urine Opiates Screen Ur Methadone, Qual Urine Barbiturates Ur Phencyclidine (PCP) U Amphetamin/Meth Scrn MDMA (Ecstasy) Screen U Benzodiazepines Scrn Ur Cocaine Metabolite U Marijuana (THC) Screen SARS-CoV-2, RNA, NAAT 01/19/22 01/20/22 01/20/22 20:38 06:06 06:06 WBC 5.76 RBC 4.77 Hgb 14.5 Hct 41.2 L MCV 86.4 MCH 30.4 MCHC 35.2 RDW Std Deviation 39.2 RDW Coeff of Osmin 12.4 Plt Count 200 MPV 10.0 Immature Gran % (Auto) Neut % (Auto) Lymph % (Auto) Coos % (Auto) Eos % (Auto) Baso % (Auto) Neut # (Auto) Lymph # (Auto) Coos # (Auto) Eos # (Auto) Baso # (Auto) Immature Gran # (Auto) PT INR VBG pH VBG pCO2 VBG pO2 VBG HCO3 VBG O2 Saturation VBG Base Excess Barometric Pressure Sodium 136 Potassium 3.5 Chloride 105 Carbon Dioxide 26 Anion Gap 5 BUN 10 Creatinine 0.69 Est Cr Clr Drug Dosing 171.0 Est GFR ( Amer) 128.3 Est GFR (Non-Af Amer) 110.7 BUN/Creatinine Ratio 14.5 Glucose 154 H POC Glucose 156 H Estimat Average Glucose Hemoglobin A1c Lactate Calcium 8.7 Phosphorus 2.4 L Magnesium 1.7 Total Bilirubin AST ALT Alkaline Phosphatase Ammonia Total Creatine Kinase Troponin I B-Natriuretic Peptide Total Protein Albumin Globulin Albumin/Globulin Ratio Lipase Procalcitonin TSH Urine Color Urine Appearance Urine pH Ur Specific [place] Urine Protein Urine Glucose (UA) Urine Ketones Urine Blood Urine Nitrite Urine Bilirubin Urine Urobilinogen Ur Leukocyte Esterase Urine Opiates Screen Ur Methadone, Qual Urine Barbiturates Ur Phencyclidine (PCP) U Amphetamin/Meth Scrn MDMA (Ecstasy) Screen U Benzodiazepines Scrn Ur Cocaine Metabolite U Marijuana (THC) Screen SARS-CoV-2, RNA, NAAT 01/20/22 01/20/22 01/20/22 06:06 06:06 06:06 WBC RBC Hgb Hct MCV MCH MCHC RDW Std Deviation RDW Coeff of [place]min Plt Count MPV Immature Gran % (Auto) Neut % (Auto) Lymph % (Auto) Coos % (Auto) Eos % (Auto) Baso % (Auto) Neut # (Auto) Lymph # (Auto) Coos # (Auto) Eos # (Auto) Baso # (Auto) Immature Gran # (Auto) PT INR VBG pH VBG pCO2 VBG pO2 VBG HCO3 VBG O2 Saturation VBG Base Excess Barometric Pressure Sodium Potassium Chloride Carbon Dioxide Anion Gap BUN Creatinine Est Cr Clr Drug Dosing Est GFR ( Amer) Est GFR (Non-Af Amer) BUN/Creatinine Ratio Glucose POC Glucose Estimat Average Glucose 278 Hemoglobin A1c 11.3 H Lactate Calcium Phosphorus Magnesium Total Bilirubin AST ALT Alkaline Phosphatase Ammonia Total Creatine Kinase Troponin I B-Natriuretic Peptide 57 Total Protein Albumin Globulin Albumin/Globulin Ratio Lipase Procalcitonin < 0.05 TSH Urine Color Urine Appearance Urine pH Ur Specific [place] Urine Protein Urine Glucose (UA) Urine Ketones Urine Blood Urine Nitrite Urine Bilirubin Urine Urobilinogen Ur Leukocyte Esterase Urine Opiates Screen Ur Methadone, Qual Urine Barbiturates Ur Phencyclidine (PCP) U Amphetamin/Meth Scrn MDMA (Ecstasy) Screen U Benzodiazepines Scrn Ur Cocaine Metabolite U Marijuana (THC) Screen SARS-CoV-2, RNA, NAAT 01/20/22 01/20/22 01/20/22 06:11 07:10 09:29 WBC RBC Hgb Hct MCV MCH MCHC RDW Std Deviation RDW Coeff of [place] Plt Count MPV Immature Gran % (Auto) Neut % (Auto) Lymph % (Auto) Coos % (Auto) Eos % (Auto) Baso % (Auto) Neut # (Auto) Lymph # (Auto) Coos # (Auto) Eos # (Auto) Baso # (Auto) Immature Gran # (Auto) PT INR VBG pH VBG pCO2 VBG pO2 VBG HCO3 VBG O2 Saturation VBG Base Excess Barometric Pressure Sodium Potassium Chloride Carbon Dioxide Anion Gap BUN Creatinine Est Cr Clr Drug Dosing Est GFR ( Amer) Est GFR (Non-Af Amer) BUN/Creatinine Ratio Glucose POC Glucose 177 H 257 H Estimat Average Glucose Hemoglobin A1c Lactate Calcium Phosphorus Magnesium Total Bilirubin AST ALT Alkaline Phosphatase Ammonia 49.0 Total Creatine Kinase Troponin I B-Natriuretic Peptide Total Protein Albumin Globulin Albumin/Globulin Ratio Lipase Procalcitonin TSH Urine Color Urine Appearance Urine pH Ur Specific [place] Urine Protein Urine Glucose (UA) Urine Ketones Urine Blood Urine Nitrite Urine Bilirubin Urine Urobilinogen Ur Leukocyte Esterase Urine Opiates Screen Ur Methadone, Qual Urine Barbiturates Ur Phencyclidine (PCP) U Amphetamin/Meth Scrn MDMA (Ecstasy) Screen U Benzodiazepines Scrn Ur Cocaine Metabolite U Marijuana (THC) Screen SARS-CoV-2, RNA, NAAT 01/20/22 10:55 WBC RBC Hgb Hct MCV MCH MCHC RDW Std Deviation RDW Coeff of [place] Plt Count MPV Immature Gran % (Auto) Neut % (Auto) Lymph % (Auto) Coos % (Auto) Eos % (Auto) Baso % (Auto) Neut # (Auto) Lymph # (Auto) Coos # (Auto) Eos # (Auto) Baso # (Auto) Immature Gran # (Auto) PT INR VBG pH VBG pCO2 VBG pO2 VBG HCO3 VBG O2 Saturation VBG Base Excess Barometric Pressure Sodium Potassium Chloride Carbon Dioxide Anion Gap BUN Creatinine Est Cr Clr Drug Dosing Est GFR ( Amer) Est GFR (Non-Af Amer) BUN/Creatinine Ratio Glucose POC Glucose 183 H Estimat Average Glucose Hemoglobin A1c Lactate Calcium Phosphorus Magnesium Total Bilirubin AST ALT Alkaline Phosphatase Ammonia Total Creatine Kinase Troponin I B-Natriuretic Peptide Total Protein Albumin Globulin Albumin/Globulin Ratio Lipase Procalcitonin TSH Urine Color Urine Appearance Urine pH Ur Specific [place] Urine Protein Urine Glucose (UA) Urine Ketones Urine Blood Urine Nitrite Urine Bilirubin Urine Urobilinogen Ur Leukocyte Esterase Urine Opiates Screen Ur Methadone, Qual Urine Barbiturates Ur Phencyclidine (PCP) U Amphetamin/Meth Scrn MDMA (Ecstasy) Screen U Benzodiazepines Scrn Ur Cocaine Metabolite U Marijuana (THC) Screen SARS-CoV-2, RNA, NAAT
--- NOTE | 2022-01-20 18:13 | Hospitalist Progress Note ---
Date of Service January 20, 2022 Assessment & Plan (1) Altered mental status: Plan: 52-year-old male with PMH of HLD, DM type II, JOHNNIE on CPAP, bladder cancer status post resection, renal calculi, seizure and anxiety presented to our ED 01/18 for evaluation of AMS. On 01/18 a.m., patient was in his usual state of health prior to going to work and became very lethargic around lunchtime/difficulty staying awake followed by little bit of eating and then vomiting. History negative for loss of consciousness or seizure-like activity or loss of bowel or bladder function. At presentation in ED, patient was hemodynamically stable with unremarkable labs except for glucose level of 312, no signs of DKA. Patient was given Narcan without any change in mental status. He is being managed for the following: #. Altered mental status: Patient brought in for evaluation of AMS [see above], no improvement after Narcan. At bedside, patient was sleepy but arousable and oriented x4 Patient denies any prior such episode Etiology unclear, patient had taken 1 tablet of Vicodin late in the morning of arrival. Admitting VBG fairly WNL. Admitting glucose 312 with no signs of DKA. Patient denied any polyuria or polydipsia/belly pain. Urine drug screen positive for opiates, rest are either negative or pending. CT head and MRI brain with no acute findings. Neurology consult, EEG with no epileptiform foci. Follow-up with neuro as needed. Infection ruled out, NH3 normal, no arrhythmia while in here, cardio consult, appreciate recs. 01/20 ECHO reviewed and wnl #. Hyperglycemia/uncontrolled T2DM Recently diagnosed with diabetes after outpatient labs showed glucose over 300 Admitting A1c of 11.5, very poorly controlled, diabetic nurse consult, pharmacy consult, appreciate recommendations Per patient's , he was in prediabetic range a month ago. Hence repeat A1c was obtained for concern of lab error and it came back 11.3. Metformin held, on insulin sliding protocol #. Hypoxia Patient noted to be hypoxic at 87% on room air, improved on 2 L of oxygen Likely secondary to underlying JOHNNIE and somnolence Resolved. #. Electrolyte abnormality #. Likely Acute Gastroenteritis Patient with vomiting episodes prior to arrival Patient had 2 episodes of diarrhea 01/20, stool studies ordered, per RN no further diarrhea during the day. Could be viral AGE, RN to send for stool biofire if further loose stool. Monitor and replete as appropriate Continue with symptomatic treatment. #. Other chronic medical conditions: HLD, sleep apnea on CPAP, renal stone Resume/continue with home meds as and when appropriate #. DVT prophylaxis: Heparin 01/19: Updated patient's over the phone and then at bedside after discussion with neurology. Admission and Anticipated Discharge Date Admission Date: January 18, 2022 Subjective Patient seen and examined at bedside as a follow-up of altered mental status and uncontrolled diabetes. Patient was lying in bed, on room air, no new acute events overnight, had diarrhea x 2 in the morning, stool studies sent, no further diarrhea per RN during the day. Per RN patient is eating okay. Patient is more awake today. Patient has been afebrile. Patient denies any further nausea or vomiting or belly pain or chest pain or increased urination or acute changes in bowel habits or other review of symptoms. Physical Exam Physical Exam: GENERAL: Alert and oriented x3. NAD, on RA. HEENT: No pallor, no icterus. Pupils equal, round and reactive to light. Oral mucosa moist. NECK: No JVD, no neck masses. HEART: S1 and S2 heard. Regular rate and rhythm. No murmur, no gallop. RESPIRATORY SYSTEM: Normal AP diameter. No accessory muscle use. No wheezing, no crackles. ABDOMEN: Soft, bowel sounds present, nontender, no distention. CENTRAL NERVOUS SYSTEM: No facial droop. Speech is clear. Obeys simple commands. Moves extremities. EXTREMITIES: No edema, no erythema seen. Results & Data Results & Data ([facility]) Vital Signs (Past 12 Hours) Vital Signs Temp Pulse Resp BP BP Pulse Ox Pulse Ox 01/20/22 15:27 36.5 C 78 19 129/83 94 01/20/22 11:53 36.6 C 60 18 120/81 94 01/20/22 09:00 94 01/20/22 07:59 36.7 C 63 18 128/88 94
[2022-01-21 06:46] LABS: Hematocrit (blood only) 40.4 % (42-52); Hemoglobin 14.5 g/dL (14.0-18.0); Mean Corpuscular Hemoglobin 30.9 pg (25-34); Mean Corpuscular Hgb Conc 35.9 g/dL (32-36); Platelet Count 215 K/uL (130-400); RDW Coefficient of Variation 12.4 % (11.5-14.5); RDW Standard Deviation 39.1 fL (36.4-46.3); White Blood Count 6.66 K/uL (4.8-10.8)
[2022-01-21 07:01] LABS: HBSAG NON-REACTIVE (NON-REACTIVE); Hepatitis A Antibody IgM NON-REACTIVE (NON-REACTIVE); Hepatitis B Core Antibody IgM NON-REACTIVE (NON-REACTIVE)
[2022-01-21 07:56] LABS: BUN Creatinine Ratio 12.2 (10-20); Creatinine Clr Calc Pharmacy 143.8 ml/min; Est GFR (African American) 119.5 ml/min; Est GFR (Non-African American) 103.1 ml/min; Magnesium 1.8 mg/dl (1.7-2.4); Phosphorus 3.7 mg/dl (2.5-4.9); Potassium 3.8 mmol/L (3.5-5.1)
[2022-01-21] MEDS: INSULIN GLARGINE SOLOSTAR 100 UNITS/ML 3 ML PEN SC SCH (08:42)
[2022-01-21] MEDS: PANTOprazole 40 MG TAB PO SCH (08:43)
[2022-01-21] MEDS: gemfibroziL 600 MG TAB PO SCH (08:43)
[2022-01-21] MEDS: HEPARIN SOD 5,000 UNIT/0.5 ML VIAL SQ SCH (08:43)
[2022-01-21] MEDS: INSULIN ASPART PER UNIT SC SCH ×2 (08:47→12:02)
[2022-01-21 11:35] LABS: Codeine Urine NEGATIVE ng/mL (<50); Hydrocodone Urine 5300 ng/mL (<50); Hydromor Urine 759 ng/mL (<50); Morphine Urine NEGATIVE ng/mL (<50); Norhydrocodone Conf Ur 7370 ng/mL (<50); Noroxycodone Urine NEGATIVE ng/mL (<50); Oxycodone Urine NEGATIVE ng/mL (<50); Oxymorph Urine NEGATIVE ng/mL (<50)
--- NOTE | 2022-01-21 12:08 | Pharmacy Report ---
Pharmacy Glycemic Short Note 2 - Date of Service January 21, 2022 - Glycemic Short BSG Results (Last 24 hours): 01/20/22 01/20/22 01/21/22 16:20 20:09 06:23 Glucose 160 H POC Glucose 118 H 225 H 01/21/22 01/21/22 07:13 10:56 Glucose POC Glucose 167 H 165 H OUTPATIENT ANTIDIABETIC REGIMEN: * Metformin 500 mg po BIDM * HbA1c 11.5% on 01/18/22 ASSESSMENT: * Patient's BSGs yesterday were [phone] mg/dL. Patient received 63 units of insulin (30 units of basal and 33 units of bolus). * Fasting today is 167 mg/dL. * Continue Lantus 30 units daily as fasting gradually trending downwards. * Continue Novolog as daily BSGs reasonable. BASELINE * 52 yo M with poorly controlled T2DM on metformin monotherapy admitted with AMS and found to have significant hyperglycemia. BSG's have gradually trended down but were still significantly elevated at 197 mg/dL this AM * Lantus initiated last night - not yet near steady state. Will continue with BID dosing today * Novolog at weight-based moderate stress estimate, which is reasonable given current stressors PLAN FOR INPATIENT GLYCEMIC CONTROL: * Hold outpatient oral diabetes medications * Basal insulin * Lantus 30 units SQ daily * Bolus insulin * NovoLog per scale ACHS or Q6hrs while NPO * Goal Range: Low 110 mg/dL - High 140 mg/dL * Correction Factor: 20 mg/dL/unit * Nutritional / Prandial insulin per carb ratio of 1 unit per 6 grams CHO consumed
--- NOTE | 2022-01-21 12:23 | Discharge Summary ---
Date of Service January 21, 2022 Admission HPI Per Admitting Provider 52-year-old male with PMH dyslipidemia, DM type II, JOHNNIE on CPAP, history of bladder cancer s/p resection, renal calculi, and other problems listed below who presents the ED for evaluation of altered mental status. Patient's is at the bedside who provides some history. This morning, patient's states that he was in his usual state of health prior to going to work. Around lunchtime, patient became very lethargic and was having difficulty staying awake. He had something to eat and then had a few episodes of vomiting after. Patient was brought to the ED for further evaluation. There was no loss of consciousness, seizure-like activity, loss of bowel or bladder dysfunction noted. Patient is prescribed lorazepam and Vicodin. Patient states that he took 1 Vicodin late this morning. He has not taken any lorazepam recently. According to patient's , patient has been in his usual state of health. No other symptoms reported. In the ED, patient is hemodynamically stable. Labs are essentially unremarkable with the exception of hyperglycemia glucose 312. No signs of DKA. Patient was given Narcan without any change in mental status. Patient was given IV insulin 5 units, IVF. Head CT unremarkable for acute findings. Admission Exam Per Admitting Provider Drowsy, obese pt HEENT: EOMI, PERRLA, atraumatic Lungs: CTA, no wheezing, or crackles Card: normal S1/S2, no murmur Abd: obese abd, ND, NT, soft MSK: trace pitting edema of LE Neuro: CN II-XII intact, normal motor strength Psych: drowsy, AAOx3 Principal Diagnosis Uncontrolled type 2 diabetes Altered mental status, likely acute gastroenteritis [likely viral] versus vasovagal versus arrhythmia Discharge Exam GENERAL: Alert and oriented x3. NAD, on RA. HEENT: No pallor, no icterus. Pupils equal, round and reactive to light. Oral mucosa moist. NECK: No JVD, no neck masses. HEART: S1 and S2 heard. Regular rate and rhythm. No murmur, no gallop. RESPIRATORY SYSTEM: Normal AP diameter. No accessory muscle use. No wheezing, no crackles. ABDOMEN: Soft, bowel sounds present, nontender, no distention. CENTRAL NERVOUS SYSTEM: No facial droop. Speech is clear. Obeys simple commands. Moves extremities. EXTREMITIES: No edema, no erythema seen. Discharge Data Allergies Allergy/AdvReac Type Severity Reaction Status Date / Time No Known Allergies Allergy Mild NONE Verified 01/18/22 15:07 Consultations 01/18/22 16:54 ED Decision to Admit Stat 01/18/22 17:42 Consult Neurology Routine 01/20/22 07:26 Consult Cardiology Routine Ordered Studies 01/18/22 14:45 CT head/brain wo con Stat 01/19/22 05:41 MR brain wo/w con Routine Diabetes Follow up Diabetes Follow-up Needed for HgbA1c >9%,Newly Diagnosed Diabetes Hospital Course (1) Altered mental status: 52-year-old male with PMH of HLD, DM type II, JOHNNIE on CPAP, bladder cancer status post resection, renal calculi, seizure and anxiety presented to our ED 01/18 for evaluation of AMS. On 01/18 a.m., patient was in his usual state of health prior to going to work and became very lethargic around lunchtime/difficulty staying awake followed by little bit of eating and then vomiting. History negative for loss of consciousness or seizure-like activity or loss of bowel or bladder function. At presentation in ED, patient was hemodynamically stable with unremarkable labs except for glucose level of 312, no signs of DKA. Patient was given Narcan without any change in mental status. He is being managed for the following: #. Altered mental status: Patient brought in for evaluation of AMS [see above], no improvement after Narcan. At bedside, patient was sleepy but arousable and oriented x4 Patient denies any prior such episode Etiology unclear, patient had taken 1 tablet of Vicodin late in the morning of arrival. Admitting VBG fairly WNL. Admitting glucose 312 with no signs of DKA. Patient denied any polyuria or polydipsia/belly pain. Urine drug screen positive for opiates, rest are either negative or pending. CT head and MRI brain with no acute findings. Neurology consult, EEG with no epileptiform foci. Follow-up with neuro as needed. Infection ruled out, NH3 normal, no arrhythmia while in here, cardio consult, appreciate recs. 01/20 ECHO reviewed and wnl For outpatient arrhythmia monitoring, patient declined Zio Patch. Pt advised to get blood work BMP done in a week time. #. Hyperglycemia/uncontrolled T2DM Recently diagnosed with diabetes after outpatient labs showed glucose over 300 Admitting A1c of 11.5, very poorly controlled, diabetic nurse consult, pharmacy consult, appreciate recommendations Per patient's , he was in prediabetic range a month ago. Hence repeat A1c was obtained for concern of lab error and it came back 11.3. Upon DC, c/w metforming and insulin has been started. Recommend close f/u with diabetic clinic and PCP for close monitoring of DM. #. Hypoxia - resolved Patient noted to be hypoxic at 87% on room air, improved on 2 L of oxygen Likely secondary to underlying JOHNNIE and somnolence #. Electrolyte abnormality #. Likely Acute Gastroenteritis Patient with vomiting episodes prior to arrival Patient had 2 episodes of diarrhea 01/20, stool studies ordered, per RN no further diarrhea during the day. Per Pt no further diarrhea, hence stool test was not able to be carried out. Could be viral AGE BMP, Mg and Phos level in a week time upon DC to ensure stability of electrolytes. #. Other chronic medical conditions: HLD, sleep apnea on CPAP, renal stone Resume/continue with home meds as and when appropriate #. DVT prophylaxis: Heparin 01/19: Updated patient's over the phone and then at bedside after discussion with neurology. 01/20: Went through discharge instruction with the patient at bedside, offered him if I need to talk with his to convey DC instruction, he declined. Following instructions were communicated to the patient at the point of discharge: Follow-up with your primary care physician within a week time. Follow-up with your diabetic clinic as an outpatient. While in hospital, you were evaluated for altered mental status, reasons could be viral acute gastroenteritis versus vasovagal versus arrhythmia. Outpatient Zio patch monitoring is one of the step to exclude arrhythmia, which was discuss ed at the bedside and you declined. Should you decide to go with Zio patch monitoring as an outpatient, I advise you to follow-up with your primary care physician. Get your blood work BMP, magnesium and phosphorus level done in a week time upon discharge to ensure the stability of your electrolytes. As discussed at the bedside, for your uncontrolled diabetes your diabetic medications are being optimized, I advise you to closely follow-up with your diabetic clinic as an outpatient and then discuss with your primary care physician further regarding whether or not you would like to go with end ocrinology doctor as an outpatient. As discussed at the bedside, highly recommend incorporating healthy diet and exercises in your lifestyle. Take your medications as prescribed. Total Time Total Time Spent Total Time Spent (In Minutes): 40 Discharge Plan Discharge Items Patient Disposition: Home - Self-Care Reason For Visit: AMS Discharge Diagnosis: Uncontrolled type 2 diabetes Altered mental status, likely acute gastroenteritis [likely viral] versus vasovagal versus arrhythmia Activity: Resume your previous activity Non-emergency contact: Primary Care Provider Call non-emergency contact if: you have any medication questions and your temperature is above 101 Follow-up/Referrals: Heather Calvillo DO [Primary Care Provider] - Diet: Carb Consistent or DM2 and Heart Healthy Addtl Attending Provider Instructions: Follow-up with your primary care physician within a week time. Follow-up with your diabetic clinic as an outpatient. While in hospital, you were evaluated for altered mental status, reasons could be viral acute gastroenteritis versus vasovagal versus arrhythmia. Outpatient Zio patch monitoring is one of the step to exclude arrhythmia, which was discussed at the bedside and you declined. Should you decide to go with Zio patch monitoring as an outpatient, I advise you to follow-up with your primary care physician. Get your blood work BMP, magnesium and phosphorus level done in a week time upon discharge to ensure the stability of your electrolytes. As discussed at the bedside, for your uncontrolled diabetes your diabetic medications are being optimized, I advise you to closely follow-up with your diabetic clinic as an outpatient and then discuss with your primary care physician further regarding whether or not you would like to go with endocrinology doctor as an outpatient. As discussed at the bedside, highly recommend incorporating healthy diet and exercises in your lifestyle. Take your medications as prescribed. Pending Studies at Discharge: No Stand-Alone Forms: My [employer], Smoking Cessation Medications and DC Order Prescriptions: New Basaglar KwikPen U-100 Insulin 100 unit/mL (3 mL) insulin pen 30 unit subcut QAM Qty: 9 RF: 0 (DME) pen needle, diabetic [BD Ultra-Fine Natacha Pen Needle] 32 gauge x 5/32" needle See Rx Instructions .Route Qty: 100 RF: 0 (DME) OneTouch Verio test strips Strip See Rx Instructions .Route Qty: 100 RF: 0 (DME) lancets [OneTouch Delica Lancets] 33 gauge misc See Rx Instructions .Route Qty: 100 RF: 0 Continued hydrocodone-acetaminophen 5-325 mg Tablet 1 tab PO BID PRN (Reason: mild pain) RF: 0 sulindac 150 mg Tablet 150 mg PO BID RF: 0 lorazepam [Ativan] 1 mg Tablet 1 mg PO DIRECTED PRN (Reason: Anxiety) RF: 0 gemfibrozil [Lopid] 600 mg Tablet 600 mg PO BID RF: 0 pantoprazole 40 mg Tablet,Delayed Release (Dr/Ec) 40 mg PO QAM RF: 0 [place]-3 Fish Oil 300-1,000 mg Capsule 1,000 mg PO BID RF: 0 multivitamin Tablet 1 tab PO QAM RF: 0 amiloride-hydrochlorothiazide 5-50 mg Tablet 1 tab PO QAM RF: 0 cyanocobalamin (vitamin B-12) 1,000 mcg Tablet 1,000 mcg PO QAM RF: 0 metformin 500 mg tablet 500 mg PO BIDM RF: 0 Discharge Orders: Discharge Order (Routine); Ordered 01/21/22 Ordered By: Nabila Del Rosario Admission Data Admit Date/Time: 01/18/22 17:20 Attending Provider: Nabila Del Rosario Admit Provider: Sarika Mckeon Primary Care Provider: Heather Calvillo Other Providers: Griffin Vick ; Sarika Mckeon ; Jose Elias Vanessa
--- NOTE | 2022-01-21 15:30 | Electrocardiogram Report ---
Test Reason : Blood Pressure : / mmHG Vent. Rate : 057 BPM Atrial Rate : 057 BPM P-R Int : 192 ms QRS Dur : 098 ms QT Int : 432 ms P-R-T Axes : 059 044 026 degrees QTc Int : 420 ms Sinus bradycardia Otherwise normal ECG When compared with ECG of 18-JAN-2022 14:49, No significant change was found Confirmed by Dino Alvarado ([id number]) on 01/21/2022 3:30:18 PM Referred By: REFERRED SELF Confirmed By:Dino Alvarado
== END 2022-01-21 15:58 | disposition home or self-care (01) | DRG 392 ==
LOC: ED 13:51 → 2S 17:20 → SUATTDRO 17:20 → 2S 20:24

== ENCOUNTER 2022-04-08 20:19 | Inpatient (IN) ==
--- NOTE | 2022-04-08 21:01 | Emergency Department Note ---
Impression & Plan Opioid overdose ED Provider Note Name: JOSE OSULLIVAN Age: 52 Sex: M Arrives Via: Ambulance Informant: , EMS ED Provider: Ian White MD Chief Complaint: Altered mental status Impression: As per impressions above Medical Decision Makin-year-old gentleman with extensive past medical history who is on chronic pain medication for left knee pain. He arrives for evaluation of worsening somnolence and essentially obtundation. On examination he has an abrasion to his chin. For EMS they noted he was so somnolent the given Narcan which seemed to wake him up before he gradually fell back to sleep. He did have normal blood sugars for EMS On arrival patient is quite somnolent/obtunded. A CT of the head and neck were obtained given head injury and altered mental status which were fortunately unremarkable. A chest x-ray just shows decreased inspiratory effort. His labs are unremarkable other than his Tylenol level is slightly elevated. This would go along with the fact that he may have over dosed on his Vicodin. His is adamant that the suicidal attempt would be highly unlikely given his history of no previous issues with. I will note that review of his chart notes several episodes of somnolence that have brought him to the ER but more recently he was diagnosed with hyperglycemia for which she was admitted. Given the unclear etiology of whether this was a suicide attempt or not, degree of somnolence in the requiring of nasal cannula O2 I do feel that hospitalization is reasonable. I did opt to not give further Narcan as he is protecting his airway and other than mild hypoxia he has not hemodynamically a unstable. Hospitalist was consulted for further management. Prior Medical Record and Triage/Nursing Notes reviewed by Me Additional history obtained from chart and Differentials:Overdose, toxicologic, infection, hypoglycemia, electrolyte abnormalities, cardiac sources, intracerebral event, neurologic, trauma, as well as other pathologies. Vital Signs: reviewed and remarkable for mild hypoxia on ra Interventions: nss infusion Labs:Reviewed and remarkable for mild elevated tylenol level Imaging:Inspiratory effort on chest x-ray. CT head and cervical spine are n egative as per radiologist Consults:Dr Steven Moulton hospitalist Plan: Disposition:Hospitalization. Condition: Good History of Present Illness:52-year-old gentleman arrives for evaluation of altered mental status. Patient apparently left work around 5 PM and was his normal self. Around 8 PM he was noted to be altered and stumbling around the laundry room. EMS arrived and gave him glucose those blood sugar was 90 when they checked it. Due to worsening somnolence he was given IV Narcan and did seem to wake up some before falling back to sleep on the way in. EMS reports evidence of a head injury with abrasions to the face. at bedside states no concerns for depression or any recent concerning evidence of attempts at self- harm or complaints of depression. He did recently get diagnosed with diabetes and was hospitalized for altered mental status at that time. He has been on insulin since then which has been working. He does take Vicodin regularly and admits that sometimes he takes more than he supposed to. He also takes Ativan as needed for anxiety. Of note patient gradually stating he took too much of his Vicodin and it is unclear whether this it was an actual attempt at self-harm. ROS: Patient is too groggy/altered to get a full review of systems. Past Medical History:See Below Past Surgical History:See Below Family History:See Below Social History:See Below Home Medications:See Below Allergies:mlda Vitals:Blood Pressure: 130/80, Pulse 81, RR 14, T 36.7C, O2 96% on 2L NC Physical Exam: GENERAL: Patient is somnolent appearing and in no acute distress. HEAD: AT/NC but there is abrasion over chin EYES: No scleral icterus, unremarkable pupils. ENT: Mucous membranes moist, no nasal congestion. NECK: No masses appreciated, nomeningismus, trachea is midline. RESPIRATORY: No dyspnea. Clear to auscultation and equal bilaterally. No wheeze, no rhonchi. CARDIOVASCULAR: Regular rate and rhythm.No murmurs, rubs, gallops appreciated. GASTROINTESTINAL: Abdomen soft, non-tender, no peritonitis.Bowel sounds positive.No masses appreciated. BACK: No midline tenderness, no CVA tenderness EXTREMITIES: Normal motion all extremities, no cyanosis, no edema. NEUROLOGIC: Essentially obtunded with some slightly slurred speech yes and no, weakly moves all extremities no clear facial cranial nerve deficits. SKIN: No rash, no jaundice, no diaphoresis. PSYCH: Unable to evaluate GCS: 13 ED Course: Times/Reassessments: Patient continues to be quite somnolent though is protecting airway and not severely hypoxic on just 2 L nasal cannula. is comfortable with plan for hospitalization and further monitoring Ian White MD Past Med/Surg History Medical History Anxiety Arthritis Elevated triglycerides with high cholesterol GERD (gastroesophageal reflux disease) controlled History of kidney stones History of seizure Seizure onset at age 11 (after tree falling on head) > most recent seizure 12+ years ago, controlled off anticonvulsants HLD (hyperlipidemia) Hx of bladder cancer no chemo or xrt, under surveillance by urology (Dr. Beckett; [facility]) Obesity Sleep apnea CPAP Surgical History History of arthroscopic knee surgery Left History of cystoscopy History of esophagogastroduodenoscopy (EGD) History of incision and drainage Left Elbow Wound Incision and Drainage (02/12/21): LMA#5 at [facility] Hx of cholecystectomy Hx of LASIK Family History Mother Family history of diabetes mellitus Other No family history of adverse response to anesthesia Social History Smoking Status: Never smoker Second Hand Exposure: No; Hx Alcohol Use: Yes Alcohol type: hard liquor Hx Substance Use: No Preferred Language: Romansh Communication Ability: Effective Personnel Recruiter Required: No Beliefs That Will Affect Care: None marital status: Current Living Situation: Spouse current occupational status: employed How many Children do You have: 3 Feels Safe at Home: Yes Assistive Devices: None Allergies Allergies Allergy/AdvReac Type Severity Reaction Status Date / Time No Known Allergies Allergy Mild NONE Verified 04/08/22 21:31 Home Meds Home Medications Medication Instructions Recorded Confirmed gemfibrozil 600 mg tablet (Lopid) 600 mg PO BIDM 03/02/19 04/08/22 lorazepam 1 mg tablet (Ativan) 1 mg PO DAILY PRN 03/02/19 04/08/22 omega-3s 300 me-hic-txm-other 1,000 mg PO BID 03/02/19 04/08/22 [id number] oil 1,000 mg capsule (Donaldson-3 Fish Oil) pantoprazole 40 mg tablet,delayed 40 mg PO QAM 03/02/19 04/08/22 release sulindac 150 mg tablet 150 mg PO BID 03/02/19 04/08/22 amiloride 5 mg-hydrochlorothiazide 1 tab PO QAM 01/19/21 04/08/22 50 mg tablet cyanocobalamin (vitamin B-12) 1,000 mcg PO QAM 01/19/21 04/08/22 1,000 mcg tablet multivitamin 1 tab PO QAM 01/19/21 04/08/22 metformin 500 mg tablet 500 mg PO BIDM 01/18/22 04/08/22 dulaglutide 0.75 mg/0.5 mL 0.75 mg SUBCUT WK 04/08/22 04/08/22 subcutaneous pen injector (Trulicity) hydrocodone 5 mg-acetaminophen 325 1 tab PO BID PRN 04/08/22 04/08/22 mg tablet Previous Rx's Medication Instructions Recorded oxycodone 5 mg tablet 5 mg PO Q4H PRN #15 tab 01/06/21 blood sugar diagnostic (OneTouch #100 ea 01/21/22 Verio test strips) insulin glargine 100 unit/mL (3 30 unit SUBCUT QAM #9 ml 01/21/22 mL) subcutaneous pen (Basaglar KwikPen U-100 Insulin) lancets 33 gauge (OneTouch Delica #100 ea 01/21/22 Lancets) pen needle, diabetic 32 gauge x #100 ea 01/21/22 5/32" (BD Ultra-Fine Natacha Pen Needle) Results & Data (ED) Vital Signs Vital Signs - 24 hr 04/08/22 20:40 04/08/22 20:58 04/08/22 21:15 Temperature 36.7 C Temperature Source Oral Pulse Rate 81 Pulse Rate [Apical] 69 Respiratory Rate 14 18 Blood Pressure 130/80 Blood Pressure [Right Arm] 114/74 Blood Pressure Mean 96 Blood Pressure Mean [Right Arm] 87 Blood Pressure Position Semi-fowlers Blood Pressure Position [Right Arm] Sitting Pulse Oximetry 89 L 96 94 Oxygen Delivery Method Room Air Nasal Cannula Nasal Cannula Nasal Cannula Oxygen Flow Rate 20 2 2 Sepsis Recent Fever Within 48 Hours No Sepsis New/Unexplained Change in Mental Status N/A Sepsis Action Taken by Nursing No Action Required Oxygen Flow Rate - Titration 2 Pulse Oximetry Post Tiitration 95 Laboratory Data Result diagrams: 04/08/22 20:39 04/08/22 20:39 Lab Results 04/08/22 04/08/22 04/08/22 Range/Units 20:39 20:39 20:39 WBC 6.71 (4.8-10.8) K/uL RBC 4.63 L (4.7-6.1) M/uL Hgb 14.6 (14.0-18.0) g/dL Hct 40.2 L (42-52) % MCV 86.8 (80-100) fL MCH 31.5 (25-34) pg MCHC 36.3 H (32-36) g/dL RDW Std Deviation 41.4 (36.4-46.3) fL RDW Coeff of Osmin 12.9 (11.5-14.5) % Plt Count 269 (130-400) K/uL MPV 9.2 (7.4-10.4) fL Immature Gran % (Auto) 0.1 % Neut % (Auto) 48.3 % Lymph % (Auto) 37.3 % [place] % (Auto) 10.3 % Eos % (Auto) 3.1 % Baso % (Auto) 0.9 % Neut # (Auto) 3.24 (1.4-6.5) K/uL Lymph # (Auto) 2.50 (1.2-3.4) K/uL [place] # (Auto) 0.69 H (0.11-0.59) K/uL Eos # (Auto) 0.21 (0-0.5) K/uL Baso # (Auto) 0.06 (0-0.2) K/uL Immature Gran # (Auto) 0.01 (0.00-0.02) K/uL ABG pH (7.35-7.45) ABG pCO2 (35-46) mmHg ABG pO2 (80-95) mmHg ABG HCO3 (19-24) mmol/L ABG O2 Saturation (90-95) % ABG Base Excess (-9-1.8) mEq/L Mark Test (Pos) Barometric Pressure mm/Hg Oxygen Given Sodium 136 (136-145) mmol/L Potassium 3.8 (3.5-5.1) mmol/L Chloride 102 (98-107) mmol/L Carbon Dioxide 24 (21-32) mmol/L Anion Gap 10 (3-11) BUN 27 H (6-23) mg/dl Creatinine 0.86 (0.6-1.4) mg/dl Est Cr Clr Drug Dosing 139.8 ml/min Est GFR ( Amer) 117.2 ml/min Est GFR (Non-Af Amer) 101.1 ml/min BUN/Creatinine Ratio 31.4 H (10-20) Glucose 87 (70-99(Fasting)) mg/dl POC Glucose (70-99) mg/dl Calcium 10.0 (8.5-10.1) mg/dl Magnesium 1.9 (1.7-2.4) mg/dl Total Bilirubin 0.6 (0.2-1.0) mg/dl AST 27 (13-39) U/L ALT 38 (7-52) U/L Alkaline Phosphatase 41 (34-104) U/L Ammonia (18-72) umol/L Troponin I High Sens 3.0 (0-20) pg/ml Total Protein 7.3 (6.0-8.3) gm/dl Albumin 4.5 (3.4-5.0) gm/dl Globulin 2.8 (2.5-4.0) gm/dl Albumin/Globulin Ratio 1.6 (0.9-2) TSH 2.844 (0.300-4.500) uIu/ml Salicylates (3.0-30) mg/dl Acetaminophen (10-30) ug/ml Ethyl Alcohol mg/dL (<10.0) mg/dl SARS-CoV-2, RNA, NAAT (NEGATIVE) 04/08/22 04/08/22 04/08/22 Range/Units 20:39 20:41 21:29 WBC (4.8-10.8) K/uL RBC (4.7-6.1) M/uL Hgb (14.0-18.0) g/dL Hct (42-52) % MCV (80-100) fL MCH (25-34) pg MCHC (32-36) g/dL RDW Std Deviation (36.4-46.3) fL RDW Coeff of Osmin (11.5-14.5) % Plt Count (130-400) K/uL MPV (7.4-10.4) fL Immature Gran % (Auto) % Neut % (Auto) % Lymph % (Auto) % [place] % (Auto) % Eos % (Auto) % Baso % (Auto) % Neut # (Auto) (1.4-6.5) K/uL Lymph # (Auto) (1.2-3.4) K/uL [place] # (Auto) (0.11-0.59) K/uL Eos # (Auto) (0-0.5) K/uL Baso # (Auto) (0-0.2) K/uL Immature Gran # (Auto) (0.00-0.02) K/uL ABG pH (7.35-7.45) ABG pCO2 (35-46) mmHg ABG pO2 (80-95) mmHg ABG HCO3 (19-24) mmol/L ABG O2 Saturation (90-95) % ABG Base Excess (-9-1.8) mEq/L Mark Test (Pos) Barometric Pressure mm/Hg Oxygen Given Sodium (136-145) mmol/L Potassium (3.5-5.1) mmol/L Chloride (98-107) mmol/L Carbon Dioxide (21-32) mmol/L Anion Gap (3-11) BUN (6-23) mg/dl Creatinine (0.6-1.4) mg/dl Est Cr Clr Drug Dosing ml/min Est GFR ( Amer) ml/min Est GFR (Non-Af Amer) ml/min BUN/Creatinine Ratio (10-20) Glucose (70-99(Fasting)) mg/dl POC Glucose 100 H (70-99) mg/dl Calcium (8.5-10.1) mg/dl Magnesium (1.7-2.4) mg/dl Total Bilirubin (0.2-1.0) mg/dl AST (13-39) U/L ALT (7-52) U/L Alkaline Phosphatase (34-104) U/L Ammonia (18-72) umol/L Troponin I High Sens (0-20) pg/ml Total Protein (6.0-8.3) gm/dl Albumin (3.4-5.0) gm/dl Globulin (2.5-4.0) gm/dl Albumin/Globulin Ratio (0.9-2) TSH (0.300-4.500) uIu/ml Salicylates < 3.0 L (3.0-30) mg/dl Acetaminophen 20 (10-30) ug/ml Ethyl Alcohol mg/dL < 10.0 (<10.0) mg/dl SARS-CoV-2, RNA, NAAT (NEGATIVE) 04/08/22 04/08/22 04/08/22 Range/Units 23:22 23:22 23:45 WBC (4.8-10.8) K/uL RBC (4.7-6.1) M/uL Hgb (14.0-18.0) g/dL Hct (42-52) % MCV (80-100) fL MCH (25-34) pg MCHC (32-36) g/dL RDW Std Deviation (36.4-46.3) fL RDW Coeff of Osmin (11.5-14.5) % Plt Count (130-400) K/uL MPV (7.4-10.4) fL Immature Gran % (Auto) % Neut % (Auto) % Lymph % (Auto) % [place] % (Auto) % Eos % (Auto) % Baso % (Auto) % Neut # (Auto) (1.4-6.5) K/uL Lymph # (Auto) (1.2-3.4) K/uL [place] # (Auto) (0.11-0.59) K/uL Eos # (Auto) (0-0.5) K/uL Baso # (Auto) (0-0.2) K/uL Immature Gran # (Auto) (0.00-0.02) K/uL ABG pH 7.38 (7.35-7.45) ABG pCO2 46 (35-46) mmHg ABG pO2 58 L (80-95) mmHg ABG HCO3 27 H (19-24) mmol/L ABG O2 Saturation 91.0 (90-95) % ABG Base Excess 0.9 (-9-1.8) mEq/L Mark Test POS (Pos) Barometric Pressure 729.6 mm/Hg Oxygen Given 2L O2 Sodium (136-145) mmol/L Potassium (3.5-5.1) mmol/L Chloride (98-107) mmol/L Carbon Dioxide (21-32) mmol/L Anion Gap (3-11) BUN (6-23) mg/dl Creatinine (0.6-1.4) mg/dl Est Cr Clr Drug Dosing ml/min Est GFR ( Amer) ml/min Est GFR (Non-Af Amer) ml/min BUN/Creatinine Ratio (10-20) Glucose (70-99(Fasting)) mg/dl POC Glucose (70-99) mg/dl Calcium (8.5-10.1) mg/dl Magnesium (1.7-2.4) mg/dl Total Bilirubin (0.2-1.0) mg/dl AST (13-39) U/L ALT (7-52) U/L Alkaline Phosphatase (34-104) U/L Ammonia 60.0 (18-72) umol/L Troponin I High Sens (0-20) pg/ml Total Protein (6.0-8.3) gm/dl Albumin (3.4-5.0) gm/dl Globulin (2.5-4.0) gm/dl Albumin/Globulin Ratio (0.9-2) TSH (0.300-4.500) uIu/ml Salicylates (3.0-30) mg/dl Acetaminophen 14 (10-30) ug/ml Ethyl Alcohol mg/dL (<10.0) mg/dl SARS-CoV-2, RNA, NAAT (NEGATIVE) 04/09/22 Range/Units 00:00 WBC (4.8-10.8) K/uL RBC (4.7-6.1) M/uL Hgb (14.0-18.0) g/dL Hct (42-52) % MCV (80-100) fL MCH (25-34) pg MCHC (32-36) g/dL RDW Std Deviation (36.4-46.3) fL RDW Coeff of Osmin (11.5-14.5) % Plt Count (130-400) K/uL MPV (7.4-10.4) fL Immature Gran % (Auto) % Neut % (Auto) % Lymph % (Auto) % [place] % (Auto) % Eos % (Auto) % Baso % (Auto) % Neut # (Auto) (1.4-6.5) K/uL Lymph # (Auto) (1.2-3.4) K/uL [place] # (Auto) (0.11-0.59) K/uL Eos # (Auto) (0-0.5) K/uL Baso # (Auto) (0-0.2) K/uL Immature Gran # (Auto) (0.00-0.02) K/uL ABG pH (7.35-7.45) ABG pCO2 (35-46) mmHg ABG pO2 (80-95) mmHg ABG HCO3 (19-24) mmol/L ABG O2 Saturation (90-95) % ABG Base Excess (-9-1.8) mEq/L Mark Test (Pos) Barometric Pressure mm/Hg Oxygen Given Sodium (136-145) mmol/L Potassium (3.5-5.1) mmol/L Chloride (98-107) mmol/L Carbon Dioxide (21-32) mmol/L Anion Gap (3-11) BUN (6-23) mg/dl Creatinine (0.6-1.4) mg/dl Est Cr Clr Drug Dosing ml/min Est GFR ( Amer) ml/min Est GFR (Non-Af Amer) ml/min BUN/Creatinine Ratio (10-20) Glucose (70-99(Fasting)) mg/dl POC Glucose (70-99) mg/dl Calcium (8.5-10.1) mg/dl Magnesium (1.7-2.4) mg/dl Total Bilirubin (0.2-1.0) mg/dl AST (13-39) U/L ALT (7-52) U/L Alkaline Phosphatase (34-104) U/L Ammonia (18-72) umol/L Troponin I High Sens (0-20) pg/ml Total Protein (6.0-8.3) gm/dl Albumin (3.4-5.0) gm/dl Globulin (2.5-4.0) gm/dl Albumin/Globulin Ratio (0.9-2) TSH (0.300-4.500) uIu/ml Salicylates (3.0-30) mg/dl Acetaminophen (10-30) ug/ml Ethyl Alcohol mg/dL (<10.0) mg/dl SARS-CoV-2, RNA, NAAT NEGATIVE (NEGATIVE) Administered Medications Discontinued Medications Naloxone HCl (Naloxone Hcl 0.4 Mg/1 Ml Vial/Carp) 0.4 mg IV NOW STA Stop: 04/08/22 23:14 Last Admin: 04/08/22 23:31 Dose: 0.4 mg Documented by: [id number] Imaging Data Radiologist's Impression: Cervical Spine CT 04/08/22 21:00 CT SCAN OF THE CERVICAL SPINE CLINICAL HISTORY: Change in mental status. Head injury. COMPARISON STUDY: No priors. TECHNIQUE: CT scan of the cervical spine is performed from the skull base to the upper thoracic spine. Images are reviewed in the axial, sagittal, and coronal planes. IV contrast was not administered for this examination. A dose lowering technique was utilized adhering to the principles of ALARA. The patient was scanned twice due to motion artifact. CT DOSE: 2329.39 mGy.cm FINDINGS: Skeletal structures: The skeletal structures are well mineralized. There is no evidence of fracture or subluxation involving the cervical spine. Vertebral body height and alignment are maintained. There is straightening of the cervical l ordosis with reversal centered at C4-C5. Anterior osteophytes are seen throughout. The odontoid process and lateral masses are intact. The atlantoaxial articulation is preserved noting productive degenerative change. The spinous processes appear intact. There is mild multilevel facet arthropathy. Intervertebral discs: There is moderate disc space narrowing at C5-C6, C6-C7, and C7-T1. Milder narrowing is seen at C4-C5. Central canal: Posterior disc osteophyte complexes at C3-C4, C5-C6, C6-C7, and C7-T1 may contribute to multilevel acquired compromise of the central canal. Soft tissues: The prevertebral and paraspinous soft tissues are within normal limits. Calvarium: The visualized calvarium at the skull base appears intact. Brain parenchyma: Partially visualized brain parenchyma at the skull base is within normal limits. Sinuses and mastoids: There is mild mucosal thickening in the right maxillary antrum. The mastoid air cells are well pneumatized. Lung apices: Clear as visualized. IMPRESSION: There is no evidence of fracture or subluxation involving the cervical spine. ACT 112: Negative or not required by law. Electronically signed by: Db Evangelista M.D. 04/08/2022 9:29 PM Chest X-Ray 04/08/22 21:00 SINGLE VIEW CHEST CLINICAL HISTORY: Overdose. Hypoxia FINDINGS: An AP, portable, upright chest radiograph is compared to study dated 01/18/2021. The cardiomediastinal silhouette is top normal for projection. There are bibasilar airspace opacities. No large pleural effusion or pneumothorax is seen. The bony thorax is grossly intact. IMPRESSION: Bibasilar airspace opacities could represent atelectasis versus pneumonia/aspiration pneumonitis. Clinical correlation will be required and radiographic follow-up to resolution is recommended. ACT 112: Negative or not required by law. Electronically signed by: Db Evangelista M.D. 04/08/2022 9:[address] 04/08/22 21:00 CT SCAN OF THE BRAIN WITHOUT IV CONTRAST CLINICAL HISTORY: Head injury. Change in mental status. COMPARISON STUDY: CT of the brain dated 01/18/2022. TECHNIQUE: Unenhanced axial CT scan of the brain is performed from the vertex to the skull base. A dose lowering technique was utilized adhering to the principles of ALARA. FINDINGS: Brain parenchyma: The brain parenchyma is normal in appearance. There is no hemorrhage, mass effect, or evidence of acute territorial ischemia by CT criteria. Quinonez-white matter differentiation is preserved. No extra-axial fluid collection is seen. Ventricles, sulci, cisterns: Normal in configuration. Intracranial vasculature: The visualized intracranial vasculature at the skull base is normal in appearance. Calvarium: There is no depressed calvarial fracture. Sinuses and mastoids: There is mild mucosal thickening in the right maxillary antrum. The remaining visualized paranasal sinuses are clear. The mastoid air cells are well pneumatized. Orbits: The bony orbits are grossly intact. IMPRESSION: No acute intracranial abnormality. ACT 112: Negative or not required by law. Electronically signed by: Db Evangelista M.D. 04/08/2022 9:24 PM Discharge Plan Visit Data Chief Complaint: Altered Mental Status Stated Complaint: [facility] ED Provider: Ian White Discharge Problem: Opioid overdose Forms Stand Alone Forms: My [facility] [place] [employer] Prescriptions Prescriptions: No Action sulindac 150 mg Tablet 150 mg PO BID RF: 0 lorazepam [Ativan] 1 mg Tablet 1 mg PO DAILY PRN (Reason: Anxiety) RF: 0 gemfibrozil [Lopid] 600 mg Tablet 600 mg PO BIDM RF: 0 pantoprazole 40 mg Tablet,Delayed Release (Dr/Ec) 40 mg PO QAM RF: 0 Donaldson-3 Fish Oil 300-1,000 mg Capsule 1,000 mg PO BID RF: 0 multivitamin Tablet 1 tab PO QAM RF: 0 amiloride-hydrochlorothiazide 5-50 mg Tablet 1 tab PO QAM RF: 0 cyanocobalamin (vitamin B-12) 1,000 mcg Tablet 1,000 mcg PO QAM RF: 0 metformin 500 mg tablet 500 mg PO BIDM RF: 0 insulin glargine [Basaglar KwikPen U-100 Insulin] 100 unit/mL (3 mL) insulin pen 30 unit subcut QAM Qty: 9 RF: 0 (DME) pen needle, diabetic [BD Ultra-Fine Natacha Pen Needle] 32 gauge x 5/32" n eedle See Rx Instructions .Route Qty: 100 RF: 0 (DME) OneTouch Verio test strips Strip See Rx Instructions .Route Qty: 100 RF: 0 (DME) lancets [OneTouch Delica Lancets] 33 gauge misc See Rx Instructions .Route Qty: 100 RF: 0 hydrocodone-acetaminophen 5-325 mg tablet 1 tab PO BID PRN (Reason: Mild Pain (Scale Score 1-4)) RF: 0 Trulicity 0.75 mg/0.5 mL pen injector 0.75 mg SUBCUT WK RF: 0 Referrals Referrals: Heather Calvillo DO [Primary Care Provider] - Discharge Problem: Opioid overdose Qualifiers: Encounter type: initial encounter Injury intent: undetermined intent Qualified Code(s): T40.2X4A - Poisoning by other opioids, undetermined, initial encounter
[2022-04-08 21:11] LABS: Basophils # (auto) 0.06 K/uL (0-0.2); Basophils % (auto) 0.9 %; Eosinophils # (auto) 0.21 K/uL (0-0.5); Eosinophils % (auto) 3.1 %; Hematocrit (blood only) 40.2 % (42-52); Hemoglobin 14.6 g/dL (14.0-18.0); Immature Granulocytes # (auto) 0.01 K/uL (0.00-0.02); Immature Granulocytes % (auto) 0.1 %; Lymphocytes % (auto) 37.3 %; Mean Corpuscular Hemoglobin 31.5 pg (25-34); Mean Corpuscular Hgb Conc 36.3 g/dL (32-36); Mean Corpuscular Volume 86.8 fL (80-100); Mean Platelet Volume 9.2 fL (7.4-10.4); Monocytes # (auto) 0.69 K/uL (0.11-0.59); Monocytes % (auto) 10.3 %; Neutrophils # (auto) 3.24 K/uL (1.4-6.5); Neutrophils % (auto) 48.3 %; Platelet Count 269 K/uL (130-400); RDW Coefficient of Variation 12.9 % (11.5-14.5); RDW Standard Deviation 41.4 fL (36.4-46.3); Red Blood Count 4.63 M/uL (4.7-6.1); White Blood Count 6.71 K/uL (4.8-10.8)
--- NOTE | 2022-04-08 21:27 | CT Scan Report ---
CT SCAN OF THE BRAIN WITHOUT IV CONTRAST CLINICAL HISTORY: Head injury. Change in mental status. COMPARISON STUDY: CT of the brain dated 01/18/2022. TECHNIQUE: Unenhanced axial CT scan of the brain is performed from the vertex to the skull base. A d ose lowering technique was utilized adhering to the principles of ALARA. FINDINGS: Brain parenchyma: The brain parenchyma is normal in appearance. There is no hemorrhage, mass effect, or evidence of acute territorial ischemia by CT criteria. Quinonez-white matter differentiation is preser tawanna. No extra-axial fluid collection is seen. Ventricles, sulci, cisterns: Normal in configuration. Intracranial vasculature: The visualized intracranial vasculature at the skull base is normal in appe arance. Calvarium: There is no depressed calvarial fracture. Sinuses and mastoids: There is mild mucosal thickening in the right maxillary antrum. The remaining v isualized paranasal sinuses are clear. The mastoid air cells are well pneumatized. Orbits: The bony orbits are grossly intact. IMPRESSION: No acute intracranial abnormality. ACT 112: Negative or not required by law. Electronically signed by: Db Evangelista M.D. 04/08/2022 9:24 PM
--- NOTE | 2022-04-08 21:31 | CT Scan Report ---
CT SCAN OF THE CERVICAL SPINE CLINICAL HISTORY: Change in mental status. Head injury. COMPARISON STUDY: No priors. TECHNIQUE: CT scan of the cervical spine is performed from the skull base to the upper thoracic spine . Images are reviewed in the axial, sagittal, and coronal planes. IV contrast was not administered fo r this examination. A dose lowering technique was utilized adhering to the principles of ALARA. The patient was scanned twice due to motion artifact. CT DOSE: 2329.39 mGy.cm FINDINGS: Skeletal structures: The skeletal structures are well mineralized. There is no evidence of fracture o r subluxation involving the cervical spine. Vertebral body height and alignment are maintained. There is straightening of the cervical lordosis with reversal centered at C4-C5. Anterior osteophytes are seen throughout. The odontoid process and lateral masses are intact. The atlantoaxial articulation is preserved noting productive degenerative change. The spinous processes appear intact. There is mild multilevel facet arthropathy. Intervertebral discs: There is moderate disc space narrowing at C5-C6, C6-C7, and C7-T1. Milder narro wing is seen at C4-C5. Central canal: Posterior disc osteophyte complexes at C3-C4, C5-C6, C6-C7, and C7-T1 may contribute t o multilevel acquired compromise of the central canal. Soft tissues: The prevertebral and paraspinous soft tissues are within normal limits. Calvarium: The visualized calvarium at the skull base appears intact. Brain parenchyma: Partially visualized brain parenchyma at the skull base is within normal limits. Sinuses and mastoids: There is mild mucosal thickening in the right maxillary antrum. The mastoid air cells are well pneumatized. Lung apices: Clear as visualized. IMPRESSION: There is no evidence of fracture or subluxation involving the cervical spine. ACT 112: Negative or not required by law. Electronically signed by: Db Evangelista M.D. 04/08/2022 9:29 PM
[2022-04-08 21:41] LABS: Albumin Globulin Ratio 1.6 (0.9-2); Albumin Level 4.5 gm/dl (3.4-5.0); BUN Creatinine Ratio 31.4 (10-20); Bilirubin,Total 0.6 mg/dl (0.2-1.0); Creatinine Clr Calc Pharmacy 139.8 ml/min; Est GFR (African American) 117.2 ml/min; Est GFR (Non-African American) 101.1 ml/min; Globulin 2.8 gm/dl (2.5-4.0); Potassium 3.8 mmol/L (3.5-5.1); Total Protein 7.3 gm/dl (6.0-8.3)
[2022-04-08 21:42] LABS: Acetaminophen 20 ug/ml (10-30); Salicylate < 3.0 mg/dl (3.0-30)
--- NOTE | 2022-04-08 21:49 | XRay Report ---
SINGLE VIEW CHEST CLINICAL HISTORY: Overdose. Hypoxia FINDINGS: An AP, portable, upright chest radiograph is compared to study dated 01/18/2021. The cardiom ediastinal silhouette is top normal for projection. There are bibasilar airspace opacities. No large pleural effusion or pneumothorax is seen. The bony thorax is grossly intact. IMPRESSION: Bibasilar airspace opacities could represent atelectasis versus pneumonia/aspiration pneu monitis. Clinical correlation will be required and radiographic follow-up to resolution is recommende d. ACT 112: Negative or not required by law. Electronically signed by: Db Evangelista M.D. 04/08/2022 9:48 PM
[2022-04-08] MEDS ORDERED: NALOXONE HCL 0.4 MG/1 ML VIAL/CARP IV STA (23:13)
[2022-04-08 23:17] LABS: Magnesium 1.9 mg/dl (1.7-2.4)
[2022-04-09 00:07] LABS: Base Excess ABG 0.9 mEq/L (-9-1.8); HCO3 ABG 27 mmol/L (19-24); PCO2 ABG 46 mmHg (35-46); PO2 ABG 58 mmHg (80-95); pH ABG 7.38 (7.35-7.45)
[2022-04-09 00:13] LABS: Allen Test POS (Pos)
[2022-04-09] MEDS ORDERED: NALOXONE HCL 0.4 MG/1 ML VIAL/CARP IV STA ×2 (01:49→04:04)
[2022-04-09] MEDS ORDERED: ALBUT/IPRATROP 3MG/0.5MG NEB 3 ML VIAL NEB STA (01:50)
--- NOTE | 2022-04-09 01:50 | History & Physical Report ---
Date of Service April 09, 2022 Assessment & Plan (1) Acute hypoxemic respiratory failure: Plan: Likely secondary to oversedation (opioid toxicity from Vicodin Rx for worsening left knee pain, home benzo possibly contributory) Underlying JOHNNIE on CPAP hyperlipidemia on statin Rx hx superficial bladder CA as per records, no recent follow-up with [facility] history of posttraumatic seizures DM 2 insulin requiring, suboptimal control as of recent hemoglobin A1c of 11.06 January 2022 past tobacco abuse. Medical telemetry Supplemental O2 Appropriate to hold home narcotics/neuropsychotropic meds for now Narcan as needed Left knee x-ray May benefit from inpatient orthopedics consult for worsening left knee pain Obtain more history from patient once more awake. Basal bolus insulin, ISS BG goal 1 10-1 40, carb count coverage DVT prophylaxis. Lovenox subcu Full code Total critical time was 35 minutes Patient's requesting updates from providers. Mrs. Anni Vaughn, contact #[phone]. Text document was generated using DOZ voice recognition software. It may contain grammatical or spelling errors. Kindly contact undersigned for clarification of any documentation item in question. History of Present Illness Chief Complaint: Altered mental status as per records Primary Care Provider: Heather Calvillo, History obtained from patient, family, and records. Limited history from patient secondary to obtunded state. Medical history significant for situational hypertension, hyperlipidemia, urolithiasis, BPH, superficial bladder tumor as per records, GERD, history of posttraumatic seizures, JOHNNIE on CPAP, DM 2 insulin requiring, chronic left knee pain, past tobacco abuse. Recent confinement January 2022 for uncontrolled DM2. Patient presented with altered mental status. Patient has had chronic left knee pain for about a year now. Symptoms attributed to mild DJD/patellofemoral syndrome as per outpatient records. No osseous abnormality on outpatient plain x-ray January 2021. Sports medicine specialists contemplating on obtaining MRI if without improvement versus trying intra-articular steroid injection. Patient taking more than usual prescribed as needed doses of Vicodin for worsening left knee pain in the last few weeks as per . No fever, no chills, no chest pain, no SOB. Patient not aware of any suicidal ideations. Last night, patient noted to be confused and stumbling around the laundry room. BSG noted to be 90. Subsequent fall. No witnessed seizures. EMS summoned by patient's . Head injury noted. Some response to IV Narcan administration at home. O2 sats noted to be 80s upon arrival at the ER. Medical Historyas above Surgical History : Cholecystectomy, knee surgery, cystoscopy/bladder tumor surgery Family History : Heart disease Personal/Social history : Past tobacco abuse, occasional EtOH intake, [employer] employee Allergies Allergy/AdvReac Type Severity Reaction Status Date / Time No Known Allergies Allergy Mild NONE Verified 04/08/22 21:31 Home Medications Medication Instructions Recorded Confirmed Type gemfibrozil 600 mg tablet (Lopid) 600 mg PO BIDM 03/02/19 04/08/22 History lorazepam 1 mg tablet (Ativan) 1 mg PO DAILY PRN 03/02/19 04/08/22 History omega-3s 300 hw-lho-efb-other 1,000 mg PO BID 03/02/19 04/08/22 History [id number] oil 1,000 mg capsule ([place]-3 Fish Oil) pantoprazole 40 mg tablet,delayed 40 mg PO QAM 03/02/19 04/08/22 History release sulindac 150 mg tablet 150 mg PO BID 03/02/19 04/08/22 History oxycodone 5 mg tablet 5 mg PO Q4H PRN #15 tab 01/06/21 03/04/21 Rx amiloride 5 mg-hydrochlorothiazide 1 tab PO QAM 01/19/21 04/08/22 History 50 mg tablet cyanocobalamin (vitamin B-12) 1,000 mcg PO QAM 01/19/21 04/08/22 History 1,000 mcg tablet multivitamin 1 tab PO QAM 01/19/21 04/08/22 History metformin 500 mg tablet 500 mg PO BIDM 01/18/22 04/08/22 History blood sugar diagnostic (OneTouch #100 ea 01/21/22 Rx Verio test strips) lancets 33 gauge (OneTouch Delica #100 ea 01/21/22 Rx Lancets) pen needle, diabetic 32 gauge x #100 ea 01/21/22 Rx 5/32" (BD Ultra-Fine Natacha Pen Needle) dulaglutide 0.75 mg/0.5 mL 0.75 mg SUBCUT WK 04/08/22 04/08/22 [facility] hydrocodone 5 mg-acetaminophen 325 1 tab PO BID PRN 04/08/22 04/08/22 History mg tablet insulin glargine 100 unit/mL (3 15 unit SUBCUT QAM 04/09/22 04/09/22 History mL) subcutaneous pen (Basaglar KwikPen U-100 Insulin) Past Med/Surg History Medical History Anxiety Arthritis Elevated triglycerides with high cholesterol GERD (gastroesophageal reflux disease) controlled History of kidney stones History of seizure Seizure onset at age 11 (after tree falling on head) > most recent seizure 12+ years ago, controlled off anticonvulsants HLD (hyperlipidemia) Hx of bladder cancer no chemo or xrt, under surveillance by urology (Dr. Beckett; [facility]) Obesity Sleep apnea CPAP Surgical History History of arthroscopic knee surgery Left History of cystoscopy History of esophagogastroduodenoscopy (EGD) History of incision and drainage Left Elbow Wound Incision and Drainage (02/12/21): LMA#5 at [facility] Hx of cholecystectomy Hx of LASIK Family History Mother Family history of diabetes mellitus Other No family history of adverse response to anesthesia Social History Smoking Status: Never smoker Second Hand Exposure: No; Hx Alcohol Use: Yes Alcohol type: hard liquor Hx Substance Use: No Preferred Language: Greek Communication Ability: Unable Group Therapist Required: No Beliefs That Will Affect Care: None marital status: Current Living Situation: Spouse current occupational status: employed How many Children do You have: 3 Other Information That Helps Us Care for You: No Feels Safe at Home: Yes Assistive Devices: CPAP Review of Systems Review of Systems: Could not be reliably obtained secondary to obtunded state Physical Exam Physical Exam: GENERAL: obtunded, obese, snoring, no respiratory distress SKIN: Normal color, warm HEENT: [place] palpebral conjunctivae, no ptosis, dry buccal mucosa, nasal cannula in place NECK : Supple, short neck, no tenderness CHEST : Decreased breath sounds, occasional expiratory wheezes, no tenderness HEART :RRR, no obvious murmurs ABDOMEN: Some distention, left flank tenderness EXTREMITIES : minimal LE swelling, minimal L knee tenderness tenderness, no other conspicuous deformities noted NEUROLOGIC : obtunded, miotic pupils, no facial asymmetry, gait and stance not assessed Results & Data Results & Data ([facility]) Vital Signs (Past 12 Hours) Vital Signs Temp Pulse Pulse Resp BP BP Pulse Ox 04/08/22 21:15 69 18 114/74 94 04/08/22 20:58 36.7 C 81 14 130/80 96 04/08/22 20:40 89 L Laboratory Results Laboratory Results WBC 6.71 K/uL (4.8-10.8) 04/08/22 20:39 RBC 4.63 M/uL (4.7-6.1) L 04/08/22 20:39 Hgb 14.6 g/dL (14.0-18.0) 04/08/22 20:39 Hct 40.2 % (42-52) L 04/08/22 20:39 MCV 86.8 fL (80-100) 04/08/22 20:39 MCH 31.5 pg (25-34) 04/08/22 20:39 MCHC 36.3 g/dL (32-36) H 04/08/22 20:39 RDW Std Deviation 41.4 fL (36.4-46.3) 04/08/22 20:39 RDW Coeff of Osmin 12.9 % (11.5-14.5) 04/08/22 20:39 Plt Count 269 K/uL (130-400) 04/08/22 20:39 MPV 9.2 fL (7.4-10.4) 04/08/22 20:39 Immature Gran % (Auto) 0.1 % 04/08/22 20:39 Neut % (Auto) 48.3 % 04/08/22 20:39 Lymph % (Auto) 37.3 % 04/08/22 20:39 Bartholomew % (Auto) 10.3 % 04/08/22 20:39 Eos % (Auto) 3.1 % 04/08/22 20:39 Baso % (Auto) 0.9 % 04/08/22 20:39 Neut # (Auto) 3.24 K/uL (1.4-6.5) 04/08/22 20:39 Lymph # (Auto) 2.50 K/uL (1.2-3.4) 04/08/22 20:39 Bartholomew # (Auto) 0.69 K/uL (0.11-0.59) H 04/08/22 20:39 Eos # (Auto) 0.21 K/uL (0-0.5) 04/08/22 20:39 Baso # (Auto) 0.06 K/uL (0-0.2) 04/08/22 20:39 Immature Gran # (Auto) 0.01 K/uL (0.00-0.02) 04/08/22 20:39 ABG pH 7.38 (7.35-7.45) 04/08/22 23:45 ABG pCO2 46 mmHg (35-46) 04/08/22 23:45 ABG pO2 58 mmHg (80-95) L 04/08/22 23:45 ABG HCO3 27 mmol/L (19-24) H 04/08/22 23:45 ABG O2 Saturation 91.0 % (90-95) 04/08/22 23:45 ABG Base Excess 0.9 mEq/L (-9-1.8) 04/08/22 23:45 Mark Test POS (Pos) 04/08/22 23:45 Barometric Pressure 729.6 mm/Hg 04/08/22 23:45 Oxygen Given 2L O2 04/08/22 23:45 Sodium 136 mmol/L (136-145) 04/08/22 20:39 Potassium 3.8 mmol/L (3.5-5.1) 04/08/22 20:39 Chloride 102 mmol/L (98-107) 04/08/22 20:39 Carbon Dioxide 24 mmol/L (21-32) 04/08/22 20:39 Anion Gap 10 (3-11) 04/08/22 20:39 BUN 27 mg/dl (6-23) H 04/08/22 20:39 Creatinine 0.86 mg/dl (0.6-1.4) 04/08/22 20:39 Est Cr Clr Drug Dosing 139.8 ml/min 04/08/22 20:39 Est GFR ( Amer) 117.2 ml/min 04/08/22 20:39 Est GFR (Non-Af Amer) 101.1 ml/min 04/08/22 20:39 BUN/Creatinine Ratio 31.4 (10-20) H 04/08/22 20:39 Glucose 87 mg/dl (70-99(Fasting)) 04/08/22 20:39 POC Glucose 100 mg/dl (70-99) H 04/08/22 20:41 Calcium 10.0 mg/dl (8.5-10.1) 04/08/22 20:39 Magnesium 1.9 mg/dl (1.7-2.4) 04/08/22 20:39 Total Bilirubin 0.6 mg/dl (0.2-1.0) 04/08/22 20:39 AST 27 U/L (13-39) 04/08/22 20:39 ALT 38 U/L (7-52) 04/08/22 20:39 Alkaline Phosphatase 41 U/L (34-104) 04/08/22 20:39 Ammonia 60.0 umol/L (18-72) 04/08/22 23:22 Troponin I High Sens 3.0 pg/ml (0-20) 04/08/22 20:39 Total Protein 7.3 gm/dl (6.0-8.3) 04/08/22 20:39 Albumin 4.5 gm/dl (3.4-5.0) 04/08/22 20:39 Globulin 2.8 gm/dl (2.5-4.0) 04/08/22 20:39 Albumin/Globulin Ratio 1.6 (0.9-2) 04/08/22 20:39 TSH 2.844 uIu/ml (0.300-4.500) 04/08/22 20:39 Salicylates < 3.0 mg/dl (3.0-30) L 04/08/22 20:39 Acetaminophen 14 ug/ml (10-30) 04/08/22 23:22 Ethyl Alcohol mg/dL < 10.0 mg/dl (<10.0) 04/08/22 21:29 SARS-CoV-2, RNA, NAAT NEGATIVE (NEGATIVE) 04/09/22 00:[address] 04/08/22 21:00 CT SCAN OF THE CERVICAL SPINE CLINICAL HISTORY: Change in mental status. Head injury. COMPARISON STUDY: No priors. TECHNIQUE: CT scan of the cervical spine is performed from the skull base to the upper thoracic spine. Images are reviewed in the axial, sagittal, and coronal planes. IV contrast was not administered for this examination. A dose lowering technique was utilized adhering to the principles of ALARA. The patient was scanned twice due to motion artifact. CT DOSE: 2329.39 mGy.cm FINDINGS: Skeletal structures: The skeletal structures are well mineralized. There is no evidence of fracture or subluxation involving the cervical spine. Vertebral body height and alignment are maintained. There is straightening of the cervical lordosis with reversal centered at C4-C5. Anterior osteophytes are seen throughout. The odontoid process and lateral masses are intact. The atlantoaxial articulation is preserved noting productive degenerative change. The spinous processes appear intact. There is mild multilevel facet arthropathy. Intervertebral discs: There is moderate disc space narrowing at C5-C6, C6-C7, and C7-T1. Milder narrowing is seen at C4-C5. Central canal: Posterior disc osteophyte complexes at C3-C4, C5-C6, C6-C7, and C7-T1 may contribute to multilevel acquired compromise of the central canal. Soft tissues: The prevertebral and paraspinous soft tissues are within normal limits. Calvarium: The visualized calvarium at the skull base appears intact. Brain parenchyma: Partially visualized brain parenchyma at the skull base is within normal limits. Sinuses and mastoids: There is mild mucosal thickening in the right maxillary antrum. The mastoid air cells are well pneumatized. Lung apices: Clear as visualized. IMPRESSION: There is no evidence of fracture or subluxation involving the cervical spine. ACT 112: Negative or not required by law. Electronically signed by: Db Evangelista M.D. 04/08/2022 9:29 PM Chest X-Ray 04/08/22 21:00 SINGLE VIEW CHEST CLINICAL HISTORY: Overdose. Hypoxia FINDINGS: An AP, portable, upright chest radiograph is compared to study dated 01/18/2021. The cardiomediastinal silhouette is top normal for projection. There are bibasilar airspace opacities. No large pleural effusion or pneumothorax is seen. The bony thorax is grossly intact. IMPRESSION: Bibasilar airspace opacities could represent atelectasis versus pneumonia/aspiration pneumonitis. Clinical correlation will be required and rad iographic follow-up to resolution is recommended. ACT 112: Negative or not required by law. Electronically signed by: Db Evangelista M.D. 04/08/2022 9:[address] 04/08/22 21:00 CT SCAN OF THE BRAIN WITHOUT IV CONTRAST CLINICAL HISTORY: Head injury. Change in mental status. COMPARISON STUDY: CT of the brain dated 01/18/2022. TECHNIQUE: Unenhanced axial CT scan of the brain is performed from the vertex to the skull base. A dose lowering technique was utilized adhering to the principles of ALARA. FINDINGS: Brain parenchyma: The brain parenchyma is normal in appearance. There is no hemorrhage, mass effect, or evidence of acute territorial ischemia by CT criteria. Quinonez-white matter differentiation is preserved. No extra-axial fluid collection is seen. Ventricles, sulci, cisterns: Normal in configuration. Intracranial vasculature: The visualized intracranial vasculature at the skull base is normal in appearance. Calvarium: There is no depressed calvarial fracture. Sinuses and mastoids: There is mild mucosal thickening in the right maxillary antrum. The remaining visualized paranasal sinuses are clear. The mastoid air cells are well pneumatized. Orbits: The bony orbits are grossly intact. IMPRESSION: No acute intracranial abnormality. ACT 112: Negative or not required by law. Electronically signed by: Db Evangelista M.D. 04/08/2022 9:24 PM Diagnostic Findings EKG as per my interpretation : Rate 70, NSR, normal axis, Twave flattening inferior leads
[2022-04-09] MEDS ORDERED: LACTATED RINGER'S 1,000 ML IV ONE (01:54)
[2022-04-09] MEDS ORDERED: GLUCOSE 10 TABS/TUBE PO PRN (03:46)
[2022-04-09] MEDS ORDERED: ACETAMINOPHEN 325 MG TAB PO PRN (03:46)
[2022-04-09] MEDS ORDERED: GLUCAGON FOR INJ 1 MG VIAL SQ PRN (03:46)
[2022-04-09] MEDS ORDERED: PROMETHAZINE HCL 12.5 MG in SODIUM CHLORIDE 0.9% 50 ML IV PRN (03:46)
[2022-04-09] MEDS ORDERED: CARBOHYDRATES FOR HYPOGLYCEMIA PO PRN (03:46)
[2022-04-09] MEDS ORDERED: KETOROLAC TROMETHAMINE 15 MG/ML VIAL IV PRN (03:46)
[2022-04-09] MEDS ORDERED: GLUCOSE 40% GEL 15 GM TUBE PO PRN (03:46)
[2022-04-09] MEDS ORDERED: DEXTROSE 50% 50 ML SYRINGE IV PRN (03:46)
[2022-04-09] MEDS: INSULIN ASPART PER UNIT SC SCH ×5 (04:48→20:39)
[2022-04-09 07:10] LABS: Basophils # (auto) 0.06 K/uL (0-0.2); Basophils % (auto) 1.1 %; Eosinophils # (auto) 0.28 K/uL (0-0.5); Eosinophils % (auto) 4.9 %; Hematocrit (blood only) 39.4 % (42-52); Immature Granulocytes # (auto) 0.02 K/uL (0.00-0.02); Immature Granulocytes % (auto) 0.4 %; Lymphocytes % (auto) 38.9 %; Mean Corpuscular Hgb Conc 35.5 g/dL (32-36); Mean Corpuscular Volume 87.4 fL (80-100); Mean Platelet Volume 9.3 fL (7.4-10.4); Monocytes # (auto) 0.49 K/uL (0.11-0.59); Monocytes % (auto) 8.7 %; Neutrophils # (auto) 2.61 K/uL (1.4-6.5); Platelet Count 246 K/uL (130-400); RDW Standard Deviation 41.8 fL (36.4-46.3); Red Blood Count 4.51 M/uL (4.7-6.1); White Blood Count 5.66 K/uL (4.8-10.8)
--- NOTE | 2022-04-09 07:27 | XRay Report ---
XR knee LT 1 or 2V routine HISTORY: 52 years-old Male worsening L knee pain Left knee pain COMPARISON: None TECHNIQUE: 2 views of the left knee FINDINGS: Mild patellofemoral osteoarthritis with superior patellar enthesophyte. Trace joint effusion. No frac ture, dislocation or opaque foreign body. IMPRESSION: 1. No acute fracture. 2. Mild patellofemoral osteoarthritis. ACT 112: Negative or not required by law. The above report was generated using voice recognition software. It may contain grammatical, syntax o r spelling errors. Electronically signed by: Rodríguez Ugarte M.D. 04/09/2022 7:26 AM
[2022-04-09 07:57] LABS: Calcium 9.2 mg/dl (8.5-10.1); Potassium 3.8 mmol/L (3.5-5.1)
[2022-04-09 08:03] LABS: BUN Creatinine Ratio 35.7 (10-20); Creatinine Clr Calc Pharmacy 169.2 ml/min; Est GFR (African American) 127.5 ml/min
[2022-04-09] MEDS ORDERED: NON-FORMULARY MEDICATION (Multivitamin Tablet) PO SCH (09:00)
[2022-04-09] MEDS: SULINDAC 150 MG TAB PO SCH ×2 (09:11→21:05)
[2022-04-09] MEDS: gemfibroziL 600 MG TAB PO SCH ×2 (09:11→17:41)
[2022-04-09] MEDS: ENOXAPARIN INJ 40 MG/0.4 ML SYR SQ SCH (09:11)
[2022-04-09] MEDS: MULTIVITAMIN TAB PO SCH (09:11)
[2022-04-09] MEDS: PANTOprazole 40 MG TAB PO SCH (09:11)
[2022-04-09] MEDS: CYANOCOBALAMIN (B-12) 500 MCG TABLET PO SCH (09:11)
[2022-04-09] MEDS: INSULIN GLARGINE SOLOSTAR 100 UNITS/ML 3 ML PEN SC SCH (09:12)
[2022-04-09 09:55] LABS: Appearance Urine Clear (Clear); Bilirubin Urine Negative (Negative); Blood Urine Negative (Negative); Color Urine Dark Yellow; Glucose Urine UA Negative (Negative); Ketones Urine Negative (Negative); Leukocyte Esterase Urine Negative (Negative); Nitrite Urine Negative (Negative); Protein Urine Negative (Negative); Specific Gravity Urine 1.032 (1.000-1.030); Urobilinogen Urine Negative (Negative); pH Urine 5.5 (4.5-7.5)
[2022-04-09 10:26] LABS: Amphetamines+Metham, Urine Neg (Neg); Barbiturates, Urine Neg (Neg); Benzodiazepine, Urine Neg (Neg); Cocaine, Urine Neg (Neg); MDMA (Ecstacy), Urine Neg (Neg); Methadone, Urine Neg (Neg); Opiate, Urine Pos (Neg); Phencyclidine, Urine Neg (Neg)
--- NOTE | 2022-04-09 17:06 | Hospitalist Progress Note ---
Date of Service April 09, 2022 Assessment & Plan (1) Altered mental status: (2) Somnolence: Plan: Mostly due to narcotic and Ativan combined Pt said that he took one extra tab from old prescription Vicodin with Ativan CT head showed no acute intracranial abnormality CT cervical no evidence of fracture or subluxation involving the cervical spine. Received Narcan on admission Will hold on narcotic and Benzo from now Discussed with and patient that Benzo and narcotic should not be taken together UDS pending Clinically improved Acute hypoxemic respiratory failure: Secondary to oversedation from opioid and Benzo ABG with pH 7.38/PCO2 46/ PO2 58/ CXR showed Bibasilar airspace opacities could represent atelectasis versus pneumonia/aspiration pneumonitis. Will hold on any abx for now Currently saturated well on RA Diabetes mellitus type 2 said BS was 80 when EMS checked it Hba1c 11.3 back on 01/20/22 Home med Basaglar 15 units, Trulicity once a week and Metformin 500mg BID Currently on Lantus and NovoLog sliding scale Will check Hba1c Continue monitor BS Chronic Left Knee pain CXR showed No acute fracture. Mild patellofemoral osteoarthritis. Will hold on any narcotic for now Continue IV toradol prn Will add lidocaine HLD (hyperlipidemia): Continue gemfibrozil Sleep apnea: Continue CPAP DVT px Lovenox Disposition Mrs. Anni Vaughn, contact #[phone]. Admission and Anticipated Discharge Date Admission Date: April 09, 2022 Subjective Pt was seen and examined for follow up of confusion and lethargy. Siting at the edge of the bed with no acute distress with at bedside Pt said that the last thing that he remembered was when he was sitting on the porch around 6pm; then he woke up today and found himself in the hospital He said that he had a rough day yesterday He said that he took one extra tab of Vicodin from an old prescription and Ativan as well He said that he has been having chronic left knee pain. He had left knee surgery in the past said that he was getting injection with no relief and specialist told him no surgical intervention will improve the pain He said that he feels tired said he did not eat much and when EMS checked his BS that it was 80 He denies any suicidal ideation, hallucination, chest pain and SOB Review of Systems Review of Systems: All systems reviewed & are unremarkable except as noted in Subjective Physical Exam Physical Exam: General- No acute distress Head- atraumatic Eyes- PERRL, EOMI, ENT- oropharynx clear Neck- supple, no JVD Lungs- clear to auscultation Heart- regular rhythm; no murmur Abdomen- normal bowel sounds, soft, nontender Extremities- no calf tenderness Neuro- alert, oriented x 3; PERRL, EOMI; no facial palsy; no dysarthria Skin- warm & dry Results & Data Results & Data ([facility]) Vital Signs (Past 12 Hours) Vital Signs Temp Pulse Pulse Resp BP Pulse Ox 04/09/22 15:24 36.4 C L 69 20 128/85 95 04/09/22 11:41 36.2 C L 57 L 20 130/87 94 04/09/22 08:27 36.3 C L 59 L 20 125/84 98 04/09/22 08:00 60
[2022-04-10 07:37] LABS: BUN Creatinine Ratio 20.7 (10-20); Calcium 9.4 mg/dl (8.5-10.1); Creatinine Clr Calc Pharmacy 135.9 ml/min; Est GFR (African American) 116.6 ml/min; Est GFR (Non-African American) 100.6 ml/min; Potassium 4.2 mmol/L (3.5-5.1)
--- NOTE | 2022-04-10 08:18 | Electrocardiogram Report ---
Test Reason : Blood Pressure : / mmHG Vent. Rate : 068 BPM Atrial Rate : 068 BPM P-R Int : 188 ms QRS Dur : 098 ms QT Int : 404 ms P-R-T Axes : 040 019 008 degrees QTc Int : 429 ms Normal sinus rhythm Normal ECG When compared with ECG of 20-JAN-2022 05:50, No significant change was found Confirmed by Dami Ortiz ([id number]) on 04/10/2022 8:18:11 AM Referred By: REFERRED SELF Confirmed By:Dami Ortiz
[2022-04-10] MEDS: PANTOprazole 40 MG TAB PO SCH (09:32)
[2022-04-10] MEDS: ENOXAPARIN INJ 40 MG/0.4 ML SYR SQ SCH (09:32)
[2022-04-10] MEDS: INSULIN ASPART PER UNIT SC SCH ×2 (09:33→12:27)
[2022-04-10] MEDS: gemfibroziL 600 MG TAB PO SCH (09:33)
[2022-04-10] MEDS: SULINDAC 150 MG TAB PO SCH (09:33)
[2022-04-10] MEDS: INSULIN GLARGINE SOLOSTAR 100 UNITS/ML 3 ML PEN SC SCH (09:33)
[2022-04-10] MEDS: MULTIVITAMIN TAB PO SCH (09:33)
[2022-04-10] MEDS: CYANOCOBALAMIN (B-12) 500 MCG TABLET PO SCH (09:34)
--- NOTE | 2022-04-10 13:29 | Discharge Summary ---
Date of Service April 10, 2022 Admission HPI Per Admitting Provider History obtained from patient, family, and records. Limited history from patient secondary to obtunded state. Medical history significant for situational hypertension, hyperlipidemia, urolithiasis, BPH, superficial bladder tumor as per records, GERD, history of posttraumatic seizures, JOHNNIE on CPAP, DM 2 insulin requiring, chronic left knee pain, past tobacco abuse. Recent confinement January 2022 for uncontrolled DM2. Patient presented with altered mental status. Patient has had chronic left knee pain for about a year now. Symptoms attributed to mild DJD/patellofemoral syndrome as per outpatient records. No osseous abnormality on outpatient plain x-ray January 2021. Sports medicine specialists contemplating on obtaining MRI if without improvement versus trying intra-articular steroid injection. Patient taking more than usual prescribed as needed doses of Vicodin for worsening left knee pain in the last few weeks as per . No fever, no chills, no chest pain, no SOB. Patient not aware of any suicidal ideations. Last night, patient noted to be confused and stumbling around the laundry room. BSG noted to be 90. Subsequent fall. No witnessed seizures. EMS summoned by patient's . Head injury noted. Some response to IV Narcan administration at home. O2 sats noted to be 80s upon arrival at the ER. Medical Historyas above Surgical History : Cholecystectomy, knee surgery, cystoscopy/bladder tumor surgery Family History : Heart disease Personal/Social history : Past tobacco abuse, occasional EtOH intake, [employer] employee Admission Exam Per Admitting Provider GENERAL: obtunded, obese, snoring, no respiratory distress SKIN: Normal color, warm HEENT: [place] palpebral conjunctivae, no ptosis, dry buccal mucosa, nasal cannula in place NECK : Supple, short neck, no tenderness CHEST : Decreased breath sounds, occasional expiratory wheezes, no tenderness HEART :RRR, no obvious murmurs ABDOMEN: Some distention, left flank tenderness EXTREMITIES : minimal LE swelling, minimal L knee tenderness tenderness, no other conspicuous deformities noted NEUROLOGIC : obtunded, miotic pupils, no facial asymmetry, gait and stance not assessed Principal Diagnosis Altered mental status: Somnolence Acute hypoxemic respiratory failure: Diabetes mellitus type 2 Chronic Left Knee pain HLD (hyperlipidemia): Sleep apnea: Discharge Exam General- No acute distress Head- atraumatic Eyes- PERRL, EOMI, ENT- oropharynx clear Neck- supple, no JVD Lungs- clear to auscultation Heart- regular rhythm; no murmur Abdomen- normal bowel sounds, soft, nontender Extremities- no calf tenderness Neuro- alert, oriented x 3; PERRL, EOMI; no facial palsy; no dysarthria Skin- warm & dry Discharge Data Allergies Allergy/AdvReac Type Severity Reaction Status Date / Time No Known Allergies Allergy Mild NONE Verified 04/08/22 21:31 Consultations 04/08/22 22:22 ED Decision to Admit Stat 04/09/22 05:50 Consult Behavioral Health Liaison Routine Ordered Studies 04/08/22 21:00 CT cervical spine wo con Stat CT head/brain wo con Stat CT SCAN OF THE CERVICAL SPINE CLINICAL HISTORY: Change in mental status. Head injury. COMPARISON STUDY: No priors. TECHNIQUE: CT scan of the cervical spine is performed from the skull base to the upper thoracic spine. Images are reviewed in the axial, sagittal, and coronal planes. IV contrast was not administered for this examination. A dose lowering technique was utilized adhering to the principles of ALARA. The patient was scanned twice due to motion artifact. CT DOSE: 2329.39 mGy.cm FINDINGS: Skeletal structures: The skeletal structures are well mineralized. There is no evidence of fracture or subluxation involving the cervical spine. Vertebral body height and alignment are maintained. There is straightening of the cervical lordosis with reversal centered at C4-C5. Anterior osteophytes are seen throughout. The odontoid process and lateral masses are intact. The atlantoaxial articulation is preserved noting productive degenerative change. The spinous processes appear intact. There is mild multilevel facet arthropathy. Intervertebral discs: There is moderate disc space narrowing at C5-C6, C6-C7, and C7-T1. Milder narrowing is seen at C4-C5. Central canal: Posterior disc osteophyte complexes at C3-C4, C5-C6, C6-C7, and C7-T1 may contribute to multilevel acquired compromise of the central canal. Soft tissues: The prevertebral and paraspinous soft tissues are within normal limits. Calvarium: The visualized calvarium at the skull base appears intact. Brain parenchyma: Partially visualized brain parenchyma at the skull base is within normal limits. Sinuses and mastoids: There is mild mucosal thickening in the right maxillary antrum. The mastoid air cells are well pneumatized. Lung apices: Clear as visualized. IMPRESSION: There is no evidence of fracture or subluxation involving the cervical spine. ACT 112: Negative or not required by law. Electronically signed by: Db Evangelista M.D. 04/08/2022 9:29 PM Dictated:04/08/222123 Transcribed: 04/08/222123 SINGLE VIEW CHEST CLINICAL HISTORY: Overdose. Hypoxia FINDINGS: An AP, portable, upright chest radiograph is compared to study dated 01/18/2021. The cardiomediastinal silhouette is top normal for projection. There are bibasilar airspace opacities. No large pleural effusion or pneumothorax is seen. The bony thorax is grossly intact. IMPRESSION: Bibasilar airspace opacities could represent atelectasis versus pneumonia/aspiration pneumonitis. Clinical correlation will be required and radiographic follow-up to resolution is recommended. ACT 112: Negative or not required by law. Electronically signed by: Db Evangelista M.D. 04/08/2022 9:48 PM Dictated:04/08/222146 Transcribed: 04/08/222146 CT SCAN OF THE BRAIN WITHOUT IV CONTRAST CLINICAL HISTORY: Head injury. Change in mental status. COMPARISON STUDY: CT of the brain dated 01/18/2022. TECHNIQUE: Unenhanced axial CT scan of the brain is performed from the vertex to the skull base. A dose lowering technique was utilized adhering to the principles of ALARA. FINDINGS: Brain parenchyma: The brain parenchyma is normal in appearance. There is no hemorrhage, mass effect, or evidence of acute territorial ischemia by CT criteria. Quinonez-white matter differentiation is preserved. No extra-axial fluid collection is seen. Ventricles, sulci, cisterns: Normal in configuration. Intracranial vasculature: The visualized intracranial vasculature at the skull base is normal in appearance. Calvarium: There is no depressed calvarial fracture. Sinuses and mastoids: There is mild mucosal thickening in the right maxillary antrum. The remaining visualized paranasal sinuses are clear. The mastoid air cells are well pneumatized. Orbits: The bony orbits are grossly intact. IMPRESSION: No acute intracranial abnormality. ACT 112: Negative or not required by law. Electronically signed by: Db Evangelista M.D. 04/08/2022 9:24 PM Dictated:04/08/222120 Transcribed: 04/08/222120 XR knee LT 1 or 2V routine HISTORY: 52 years-old Male worsening L knee pain Left knee pain COMPARISON: None TECHNIQUE: 2 views of the left knee FINDINGS: Mild patellofemoral osteoarthritis with superior patellar enthesophyte. Trace joint effusion. No fracture, dislocation or opaque foreign body. IMPRESSION: 1. No acute fracture. 2. Mild patellofemoral osteoarthritis. ACT 112: Negative or not required by law. The above report was generated using voice recognition software. It may contain grammatical, syntax or spelling errors. Electronically signed by: Rodríguez Ugarte M.D. 04/09/2022 7:26 AM Dictated:04/09/22724 Transcribed: 04/09/22724 Hospital Course (1) Altered mental status: (2) Somnolence: Mostly due to narcotic and Ativan combined Pt said that he took one extra tab from old prescription Vicodin with Ativan CT head showed no acute intracranial abnormality CT cervical no evidence of fracture or subluxation involving the cervical spine. Received Narcan on admission Will hold on narcotic and Benzo from now Discussed with and patient that Benzo and narcotic should not be taken together UDS pending Clinically improved Acute hypoxemic respiratory failure: Secondary to oversedation from opioid and Benzo ABG with pH 7.38/PCO2 46/ PO2 58/ CXR showed Bibasilar airspace opacities could represent atelectasis versus pneumonia/aspiration pneumonitis. Continue to hold on any abx for now Currently saturated well on RA Diabetes mellitus type 2 said BS was 80 when EMS checked it Hba1c 11.3 back on 01/20/22 Home med Basaglar 15 units, Trulicity once a week and Metformin 500mg BID Currently on Lantus and NovoLog sliding scale Hba1c pending (PCP will review result with him ) Since his BS has been well control, Will decrease Basaglar to 5 unit daily. If blood sugar drops below 100, please hold the Basaglar. But if your blood sugar is running above 160, please notify your provider to titrate (increase) the insulin Continue monitor BS Chronic Left Knee pain CXR showed No acute fracture. Mild patellofemoral osteoarthritis. Will hold on any narcotic for now Continue IV toradol prn and Lidocaine patch during hospital course stable HLD (hyperlipidemia): Continue gemfibrozil Sleep apnea: Continue CPAP DVT px Lovenox Disposition Mrs. Anni Vaughn, contact #[phone]. Total Time Total Time Spent Total Time Spent (In Minutes): 35 minutes Discharge Plan Discharge Items Patient Disposition: Home - Self-Care Reason For Visit: RESP FAILURE Discharge Diagnosis: Altered mental status: Somnolence Acute hypoxemic respiratory failure: Diabetes mellitus type 2 Chronic Left Knee pain HLD (hyperlipidemia): Sleep apnea: Activity: Resume your previous activity Non-emergency contact: Primary Care Provider Call non-emergency contact if: you have any medication questions Follow-up/Referrals: Heather Calvillo DO [Primary Care Provider] - Diet: Carb Consistent or DM2 Addtl Attending Provider Instructions: Follow up with your primary care provider in 1 week (already has an appointment schedule) Continue monitor your blood sugar and bring your blood sugar log at your next follow appointment Basaglar decreased to 5 unit daily. If your blood sugar drops below 100, please the Basaglar. But if your blood sugar is running above 160, please notify your provider to titrate (increase) the insulin Please avoid taking any narcotic and Lorazepam together due to risk lethargy, drowsy, unresponsive, respiratory failure and even Do not operate any machine after taking Lorazepam or narcotic Hba1c pending (your provider will be able to check the result for you) Fall precaution Pending Studies at Discharge: Yes (Hba1c ) Stand-Alone Forms: [facility], Smoking Cessation Medications and DC Order Prescriptions: Continued sulindac 150 mg Tablet 150 mg PO BID RF: 0 lorazepam [Ativan] 1 mg Tablet 1 mg PO DAILY PRN (Reason: Anxiety) RF: 0 gemfibrozil [Lopid] 600 mg Tablet 600 mg PO BIDM RF: 0 pantoprazole 40 mg Tablet,Delayed Release (Dr/Ec) 40 mg PO QAM RF: 0 [place]-3 Fish Oil 300-1,000 mg Capsule 1,000 mg PO BID RF: 0 multivitamin Tablet 1 tab PO QAM RF: 0 amiloride-hydrochlorothiazide 5-50 mg Tablet 1 tab PO QAM RF: 0 cyanocobalamin (vitamin B-12) 1,000 mcg Tablet 1,000 mcg PO QAM RF: 0 metformin 500 mg tablet 500 mg PO BIDM RF: 0 (DME) pen needle, diabetic [BD Ultra-Fine Natacha Pen Needle] 32 gauge x 5/32" needle See Rx Instructions .Route Qty: 100 RF: 0 (DME) OneTouch Verio test strips Strip See Rx Instructions .Route Qty: 100 RF: 0 (DME) lancets [OneTouch Delica Lancets] 33 gauge misc See Rx Instructions .Route Qty: 100 RF: 0 hydrocodone-acetaminophen 5-325 mg tablet 1 tab PO BID PRN (Reason: Mild Pain (Scale Score 1-4)) RF: 0 Trulicity 0.75 mg/0.5 mL pen injector 0.75 mg SUBCUT WK RF: 0 Changed insulin glargine [Basaglar KwikPen U-100 Insulin] 100 unit/mL (3 mL) insulin pen 5 unit subcut QAM Qty: 0 RF: 0 Discharge Orders: Discharge Order (Routine); Ordered 04/10/22 Ordered By: Albert Parsons/Other Patient Handouts: Managing Type 2 Diabetes, Understanding Carbohydrates, Managing Diabetes: The A1C Test, Diabetes Manage Stress, Diabetes: My Exam and Test Results Admission Data Admit Date/Time: 04/09/22 01:52 Attending Provider: Albert Bonilla Admit Provider: Arturo Harris Primary Care Provider: Heather Calvillo Other Providers: Arturo Harris Other Interventions: Discharge Summary Assessment (RN) Last Done: 04/10/22 14:27
[2022-04-10 14:56] LABS: Codeine Urine NEGATIVE ng/mL (<50); Hydrocodone Urine 5180 ng/mL (<50); Hydromor Urine 855 ng/mL (<50); Morphine Urine NEGATIVE ng/mL (<50); Norhydrocodone Conf Ur 5530 ng/mL (<50); Noroxycodone Urine NEGATIVE ng/mL (<50); Oxycodone Urine NEGATIVE ng/mL (<50); Oxymorph Urine NEGATIVE ng/mL (<50)
[2022-04-11 06:47] LABS: Estimated Average Glucose 128 mg/dl; Hemoglobin A1C 6.1 % (4.5-5.6)
== END 2022-04-10 15:11 | disposition home or self-care (01) | DRG 917 ==
LOC: ED 20:19 → 2N 04-09 01:52